=== PATIENT | female | born 1950 | race Caucasian/White ===

== ENCOUNTER 2020-04-05 07:53 | Outpatient (CLI) | payer MEDICARE, SELFPAY ==
--- NOTE | ~2020-04-05 | US_ITS ---
EXAMINATION: US right upper quadrant DATE: 04/05/2020 08:40 INDICATION: Abnormal liver function tests. TECHNIQUE: Multiple grayscale and Doppler ultrasound images of the abdomen were obtained. COMPARISON: None FINDINGS: The visualized portions of the head, body, and tail of the pancreas are normal. The liver i s normal without focal lesion. No liver surface nodularity. There is normal flow in main portal vein. The gallbladder is normal in size and contains gallstones. No gallbladder wall thickening or sonogra phic Melara sign. The common duct is normal and measures 5 mm. IMPRESSION: 1. Cholelithiasis. No evidence of acute cholecystitis. Reviewed, dictated and finalized at location A. [employer]ING [employer]IC
== END 2020-04-05 07:54 | disposition home or self-care (01) ==
LOC: CHSIMG 07:55
PROVIDERS: PCP Internal Medicine; Visit Provider Internal Medicine
DX: R94.5 Abnormal results of liver function studies (principal)
CPT/HCPCS: 76705

== ENCOUNTER 2020-05-21 15:25 | Outpatient (CLI) | payer MEDICARE, SELFPAY ==
--- NOTE | ~2020-05-21 | CT_ITS ---
EXAMINATION: CT abdomen pelvis w con EXAM DATE: 05/21/2020 16:38 INDICATION: Abdominal pain periumbilical pain, nausea, diarrhea, bloating since Sunday. Diarrhea. TECHNIQUE: Spiral CT of the abdomen and pelvis was performed following intravenous injection of 100 m L Omnipaque 350. Axial, coronal and sagittal images were reviewed. The dose-length product (DLP) fo r this examination was 1017.96 mGy-cm. The exposure was tailored according to patient size (auto mA exposure control), and iterative reconstruction (ASIR) was used as additional dose reduction techniqu e. There is no prior study for comparison. FINDINGS: There are surgical changes of gastric bypass. The stomach is moderately distended and duode num more severely distended to the 3rd portion, where there may be some amount of obstruction. Suspec t that this is more likely low-grade partial obstruction rather than completely obstructed. Fluid in the stomach and duodenum likely bile. Gastric bypass anastomosis is intact and small bowel otherwise unremarkable. The liver, spleen, adrenal glands and pancreas are unremarkable. Gallbladder is unremarkable. No bi liary obstruction. Portal and splenic veins are patent. Kidneys enhance symmetrically. There is no hydronephrosis. The uterus is unremarkable. The bladder is unremarkable. There is no retroperit herring or pelvic lymphadenopathy. There is moderate scattered arteriosclerotic disease. Small umbili randy fat-containing hernia. The appendix is not positively visualized. There is no pericecal inflammatory change to suggest appe ndicitis. There is mild scattered colonic diverticulosis. There is no adjacent inflammatory change t o suggest diverticulitis. There is expected amount of colonic stool. No free intraperitoneal gas. The heart is normal in size. There are no pericardial or pleural effusions. The lung bases are unr emarkable. There are no osteoblastic or osteolytic lesions identified. Mild to moderate lumbar levo scoliosis. IMPRESSION: 1. Gastric bypass with findings suspicious for duodenal outlet partial obstruction, distended duoden um and stomach, likely with bile. 2. Mild colonic diverticulosis. Reviewed, dictated and finalized at location A. IMPRESSION: 1. Gastric bypass with findings suspicious for duodenal outlet partial obstruc tion, distended duodenum and stomach, likely with bile. 2. Mild colonic diverticulosis.
[2020-05-21 15:40] LABS: Basophils Absolute Auto 0.04 K/mm3 (0.00-0.10); Basophils Percent Auto 0.4 % (0.0-1.0); Eosinophils Absolute Auto 0.17 K/mm3 (0.02-0.50); Eosinophils Percent Auto 1.7 % (1.0-6.0); Hematocrit 36.4 % (35.0-42.0); Hemoglobin 11.4 g/dL (11.7-13.8); Immature Granulocyte Absolute 0.04 K/mm3 (0.00-0.00); Immature Granulocyte Percent A 0.4 % (0.0-0.0); Lymphocytes Percent Auto 20.3 % (18.0-42.0); Mean Corpuscular HGB Conc 31.3 g/dL (32.0-36.0); Mean Corpuscular Hemoglobin 26.8 pg (27.0-31.0); Mean Corpuscular Volume 85.6 fL (78.0-102.0); Mean Platelet Volume 9.5 fl (9.2-11.8); Monocytes Absolute Auto 0.68 K/mm3 (0.10-0.90); Monocytes Percent Auto 6.9 % (2.0-11.0); Neutrophils Absolute Auto 6.9 K/mm3 (1.7-7.2); Neutrophils Percent Auto 70.3 % (50.0-70.0); Platelet Count Result 315 K/mm3 (150-420); Red Blood Count 4.25 M/mm3 (4.20-5.40); Red Cell Distribution Width 12.7 % (11.6-14.4); White Blood Count 9.8 K/mm3 (4.8-10.8)
[2020-05-21 15:48] LABS: Add Urine Microscopic? YES; Appearance Urine Clear (Clear); Bilirubin Urine Negative (Negative); Blood Urine Negative (Negative); Color Urine Yellow (Yellow); Glucose Urine UA Negative (Negative); Ketones Urine Negative (Negative); Leukocyte Esterase Ur 1+ (Negative); Nitrate Urine Positive (Negative); Protein Urine Negative (Negative); Specific Grav Ur >= 1.030 (1.010-1.020); Urobilinogen Urine 0.2 mg/dL (0.2-1.0)
[2020-05-21 16:05] LABS: Alanine Aminotransferase 30 U/L (14-59); Albumin Level 3.2 g/dL (3.4-5.0); Alkaline Phosphatase 79 U/L (46-116); Amylase 42 U/L (25-115); Anion Gap 8 mmol/L (8-16); Aspartate Amino Transferase 32 U/L (15-37); Bilirubin,Total 0.4 mg/dL (0.00-1.00); Blood Urea Nitrogen 19 mg/dL (7-18); Calcium 8.8 mg/dL (8.5-10.1); Carbon Dioxide 24 mmol/L (21-32); Chloride 103 mmol/L (98-108); Estimated Glomerular Filt Rate 58; Glucose 117 mg/dL (70-99); Lipase 227 U/L (73-393); Osmolality Calculated 283 mOsm/kg (285-295); Potassium 3.9 mmol/L (3.5-5.1); Sodium 135 mmol/L (136-145); Total Protein 6.6 g/dL (6.4-8.2)
[2020-05-21 16:49] LABS: RBC Urine 0-2 /hpf (0-2); Squamous Epithelial Cell Urine Few /hpf (Few)
[2020-05-21 16:50] LABS: Bacteria Urine 2+ /hpf
== END 2020-05-21 15:26 | disposition home or self-care (01) ==
LOC: CHSLAB 15:27
PROVIDERS: PCP Internal Medicine; Visit Provider Internal Medicine
DX: R10.9 Unspecified abdominal pain (principal); R11.0 Nausea
CPT/HCPCS: 36415; 74177; 80053; 81001; 82150; 83690; 85025; 87077; 87086; 87088; 87186; Q9967

== ENCOUNTER 2020-05-24 08:38 | Outpatient (CLI) | payer MEDICARE, SELFPAY ==
--- NOTE | ~2020-05-24 | XR_ITS ---
EXAMINATION: XR abdomen obstructive series DATE: 05/24/2020 09:06 INDICATION: Mid abdominal pain TECHNIQUE: Upright and supine views of the abdomen were obtained. COMPARISON: CT, 05/21/2020 FINDINGS: Surgical changes in the left upper quadrant are consistent with patient's history of bariat roxane surgery. Although sensitivity of radiographs is low, the gastric remnant appears to be persistent ly fluid-filled and distended. No free intraperitoneal gas is identified. The visualized lung bases a re clear. There is moderate lumbar spondylosis. IMPRESSION: 1. Likely persistent distention of the fluid-filled gastric remnant. Reviewed, dictated and finalized at location B.
== END 2020-05-24 08:39 | disposition home or self-care (01) ==
LOC: CHSIMG 08:39
PROVIDERS: PCP Internal Medicine; Visit Provider Internal Medicine
DX: R10.9 Unspecified abdominal pain (principal); Z98.84 Bariatric surgery status
CPT/HCPCS: 74019

== ENCOUNTER 2020-06-20 10:11 | Inpatient (IN) | payer MEDICARE, SELFPAY ==
[2020-06-20] VITALS (8 sets, daily range): BP systolic 102–108; BP diastolic 69–86; PULSE 64–95; RESP 18–20; TEMP 36.3–36.9; O2SAT 97–100; BMI 26.7
--- NOTE | ~2020-06-20 | CT_ITS ---
EXAMINATION: CT abdomen pelvis wo con DATE: 06/20/2020 11:43 INDICATION: Known pancreatic cancer. TECHNIQUE: Computed tomography (CT) of the abdomen and pelvis was performed without intravenous contr ast. The dose-length product was 885.92 mGy-cm. Automated exposure control and iterative reconstructi on technique were employed. COMPARISON: CT dated 05/21/2020 FINDINGS: Lung bases are unremarkable. Heart size is normal. There is atherosclerosis. There is a gas tric tube. There are gallstones. There is a 2.5 cm hypodense pancreatic head mass. The liver, spleen, adrenal glands and right kidney are unremarkable. There are punctate nonobstructing left renal stone s. There are surgical changes suggesting previous partial small bowel resection. Colonic diverticulos is without diverticulitis. Moderate atherosclerosis without aneurysm. Moderate lumbar spondylosis wit h levoscoliosis of the lumbar spine. Mild osteoarthritis of the hips. IMPRESSION: 1. Hypodense pancreatic head mass measuring 2.5 cm, likely corresponding to patient's known pancreati c cancer. 2: Cholelithiasis. 3: Nonobstructing left nephrolithiasis. Reviewed, dictated and finalized at location A. IMPRESSION: 1. Hypodense pancreatic head mass measuring 2.5 cm, likely corresponding to pat ient's known pancreatic cancer. 2: Cholelithiasis. 3: Nonobstructing left nephrolithiasis.
--- NOTE | ~2020-06-20 | XR_ITS ---
EXAMINATION: XR chest 1V portable 06/20/2020 11:49 INDICATION: Epigastric pain PROCEDURE: AP portable chest COMPARISON: Comparison to multiple prior studies sequentially, with oldest reviewed study dated 12/13. FINDINGS: The lungs are clear. The cardiomediastinal silhouette is within normal limits. There are no pleural effusions. There is no pneumothorax suspected. IMPRESSION: 1: NO ACUTE CARDIOPULMONARY DISEASE. Reviewed, dictated and finalized at location A.
--- NOTE | ~2020-06-20 | CT_ITS ---
EXAMINATION: CT brain wo con DATE: 06/20/2020 13:01 INDICATION: Hyponatremia. Known pancreatic cancer. Dizziness and weakness. TECHNIQUE: Computed tomography (CT) of the head was performed without intravenous contrast. The dose- length product was 605.33 mGy-cm. Automated exposure control and iterative reconstruction technique w ere employed. COMPARISON: None FINDINGS: Brain parenchymal volume is normal for age. No acute intracranial hemorrhage, infarction, m ass or mass effect. No ventriculomegaly or midline shift. There is hyperostosis frontalis interna. Th ere is a small right frontal bone osteoma. Paranasal sinuses and mastoids are pneumatized. No depress ed skull fractures. IMPRESSION: 1. No acute intracranial abnormality. Reviewed, dictated and finalized at location A.
--- NOTE | ~2020-06-20 | CT_ITS ---
EXAMINATION: CT diagnostic chest wo con DATE: 06/20/2020 13:02 INDICATION: Weakness. Epigastric pain. Known pancreatic malignancy. TECHNIQUE: Computed tomography (CT) of the chest was performed without intravenous contrast. The dose -length product was 468.97 mGy-cm. Automated exposure control and iterative reconstruction technique were employed. COMPARISON: Chest x-ray dated 06/20/2020 FINDINGS: No significant pleural or pericardial effusion. Heart size is normal. There are changes of gastric bypass surgery. No thoracic lymphadenopathy. No focal airspace consolidation. No endobronchia l lesions. No suspicious pulmonary nodules or masses. No pneumothorax. Mild-moderate thoracic spondyl osis. No lytic or blastic lesions. IMPRESSION: 1. No acute cardiopulmonary disease. Reviewed, dictated and finalized at location A.
[2020-06-20 10:45] LABS: Basophils Absolute Auto 0.02 K/mm3 (0.00-0.10); Basophils Percent Auto 0.1 % (0.0-1.0); Eosinophils Absolute Auto 0.14 K/mm3 (0.02-0.50); Eosinophils Percent Auto 0.8 % (1.0-6.0); Hematocrit 41.1 % (35.0-42.0); Hemoglobin 13.8 g/dL (11.7-13.8); Immature Granulocyte Absolute 0.15 K/mm3 (0.00-0.00); Immature Granulocyte Percent A 0.9 % (0.0-0.0); Immature Platelet Fraction Pct 1.3 % (1.0-7.0); Lymphocytes Absolute Auto 2.03 K/mm3 (1.10-4.50); Lymphocytes Percent Auto 12.2 % (18.0-42.0); Mean Corpuscular HGB Conc 33.6 g/dL (32.0-36.0); Mean Corpuscular Hemoglobin 25.6 pg (27.0-31.0); Mean Corpuscular Volume 76.3 fL (78.0-102.0); Mean Platelet Volume 8.9 fl (9.2-11.8); Monocytes Absolute Auto 1.28 K/mm3 (0.10-0.90); Monocytes Percent Auto 7.7 % (2.0-11.0); Neutrophils Percent Auto 78.3 % (50.0-70.0); Platelet Count Result 574 K/mm3 (150-420); Red Blood Count 5.39 M/mm3 (4.20-5.40); Red Cell Distribution Width 13.1 % (11.6-14.4); White Blood Count 16.7 K/mm3 (4.8-10.8)
[2020-06-20 10:57] LABS: Alanine Aminotransferase 29 U/L (14-59); Albumin Level 3.1 g/dL (3.4-5.0); Alkaline Phosphatase 90 U/L (46-116); Amylase 83 U/L (25-115); Anion Gap 12 mmol/L (8-16); Aspartate Amino Transferase 16 U/L (15-37); Bilirubin,Total 0.8 mg/dL (0.00-1.00); Blood Urea Nitrogen 53 mg/dL (7-18); Calcium 9.3 mg/dL (8.5-10.1); Carbon Dioxide 24 mmol/L (21-32); Chloride 85 mmol/L (98-108); Estimated Glomerular Filt Rate 31; Glucose 317 mg/dL (70-99); Lipase 605 U/L (73-393); Osmolality Calculated 278 mOsm/kg (285-295); Sodium 121 mmol/L (136-145); Total Protein 7.3 g/dL (6.4-8.2)
[2020-06-20] MEDS: ONDANSETRON INJ 4 MG/2 ML VIAL IV PUSH (11:00)
[2020-06-20] MEDS: SODIUM CHLORIDE 0.9% IV 1,000 ML 500 ML IV CONT (11:00)
--- NOTE | 2020-06-20 11:31 | ED.WEAKNESS ---
HPI - Weakness General Source: patient and family Mode of arrival: wheelchair Limitations: no limitations History of Present Illness HPI Narrative: Shivani has a recent diagnosis, about 3 weeks ago, of pancreatic cancer. She has had a gastric bypass. She had a G tube placed to drain gastric fluid that was associated with gastric distention from the bypassed segment, about 3 weeks ago. She now comes in with a complaint of weakness. She has not really been able to eat or drink well for some time, due to her illness and nausea. This am she ate a little chicken soup. She has had moderately severe weakness for the past week, but this has been more severe over the last two days. It has been ongoing. Nothing at home has improved this. MD Complaint: generalized weakness Onset (ago): day(s) Duration: progressively worsening Location: generalized Severity: severe Relieving factors: none Exacerbating factors: exertion Context: other (recent pancreatic cancer diagnosis. ) Associated symptoms: loss of appetite and nausea/vomiting Related Data Home Medications Medication Instructions Recorded Confirmed aspirin [Adult Low Dose Aspirin] 81 mg PO DAILY 12/26/18 06/20/20 cholecalciferol (vitamin D3) 800 unit PO DAILY 12/26/18 06/20/20 clobetasol 1 applic TOPICAL DAILY 12/26/18 06/20/20 multivitamin 1 tablet PO DAILY 12/26/18 06/20/20 vitamin B complex [B 1 tablet PO DAILY 12/26/18 06/20/20 Complex-Vitamin B12] apixaban 5 mg tablet 5 mg PO BID 02/24/19 06/20/20 insulin lispro 100 unit/mL 5 unit SUBCUT .QAC PRN ml 02/24/19 06/20/20 subcutaneous pen calcium carbonate 500 mg calcium 500 mg PO BID tablet 08/28/19 06/20/20 (1,250 mg) tablet cranberry 800 mg PO DAILY 06/20/20 06/20/20 cyclobenzaprine [Flexeril] 10 mg PO TID PRN 06/20/20 06/20/20 insulin glargine U-300 conc 3 unit SUB-Q QPM PRN 06/20/20 06/20/20 metoprolol tartrate 50 mg PO Q12H 06/20/20 06/20/20 ondansetron [Zofran ODT] 4 mg PO Q6H PRN 06/20/20 06/20/20 oxycodone 5 mg PO Q4H PRN 06/20/20 06/20/20 polyethylene glycol 3350 [Miralax] 17 g PO DAILY 06/20/20 06/20/20 rosuvastatin 20 mg PO DAILY 06/20/20 06/20/20 Allergies Allergy/AdvReac Type Severity Reaction Status Date / Time lisinopril Allergy Unknown Cough Verified 11/11/19 10:57 Review of Systems Constitutional: Constitutional: Reports no additional constitutional complaints Eyes: Eyes: Reports no additional eye complaints ENT: Reports system reviewed and no additional complaints, except as documented Cardiovascular: Cardiovascular: Reports no additional cardiovascular complaints Respiratory: Respiratory: Reports no additional respiratory complaints Gastrointestinal: Gastrointestinal: Reports abdominal pain, Reports nausea and Reports vomiting Genitourinary: Genitourinary: Reports no additional female genitourinary complaints Musculoskeletal: Musculoskeletal: Reports no additional musculoskeletal complaints Integumentary/Breasts: Skin/Breast: Reports system reviewed and no additional complaints, except as docu Neurologic: Reports system reviewed and no additional complaints, except as documented Psychiatric: Psychiatric: Reports no additional psychiatric complaints Endocrine: Endocrine: Reports no additional endocrine complaints Hematologic/Lymphatic: Hematologic/Lymphatic: Reports no additional hematologic/lymphatic complaints Allergic/Immunologic: Allergic/Immunologic: Reports no additional allergic/immunologic complaints [facility] Past Medical History Medical History Atrial fibrillation and flutter Gastrointestinal tube present Hyperlipidemia Pancreatic cancer Sciatica, right side Type 2 diabetes mellitus Surgical History Surgical History H/O gastric bypass H/O tubal ligation History of heart artery stent Family History Family History Mother
[2020-06-20 11:38] LABS: Magnesium 2.2 mg/dL (1.8-2.4)
--- NOTE | 2020-06-20 13:22 | PM.IMHP ---
H&P: HPI History of Present Illness Date/Time: 06/20/20 13:22 this is a 69-year-old female that presented to urgent care for nausea and generalized fatigue and weakness. Patient has a past medical history of A. fib and flutter, gastric tube present, hyperlipidemia, pancreatic cancer, type 2 diabetes, and sciatica right side. According to patient May 19 she was diagnosed with pancreatic cancer her oncologist is at [facility] she has not received any treatments as of yet they are currently producing a plan for her cancer treatment . patient notes that approximately 3 weeks ago she had a G-tube drain placed due to gastric accumulation. Patient drinks the tube twice a day with daily dressing changes. According to patient for the last couple of days she has been experiencing nausea she does deny any vomiting she also experienced some dizziness decreased appetite and generalized weakness and fatigue. Patient notes that she was able to hold down chicken noodle soup and notes that she has Zofran at home that was not relieved her nausea. Patient WBC 16.7, hemoglobin 13.8, hematocrit 41.1, platelets 574, sodium 121, potassium 4.0, BUN 53, creatinine 1.63, glucose 317, magnesium 2.2 liver enzymes within normal limit lipase [address] head CT within normal limits, abdominal CT indicates pancreatic mass. Patient be admitted for hypokalemia, dehydration, generalized weakness, acute kidney injury. The patient denies SOB, CP, palpitation, extremity numbness, lightheadedness, constipation, diarrhea, chills, or fever. Patient continues to experience dizziness, fatigue, decreased appetite and nausea. <DELL Flower - Last Filed: 06/20/20 14:40> Chief Complaint: Nausea with dizziness, fatigue, weakness, decreased appetite <DELL Flower - Last Filed: 06/20/20 14:40> Review of Systems Review of Systems: Narrative: A 14 organ system Review of Systems was performed and pertinent positives included in the HPI, otherwise remaining ROS is negative. <DELL Flower - Last Filed: 06/20/20 14:40> [facility] Past Medical History Medical History: Medical History Atrial fibrillation and flutter Gastrointestinal tube present Hyperlipidemia Pancreatic cancer Sciatica, right side Type 2 diabetes mellitus <DELL Flower - Last Filed: 06/20/20 14:40> Surgical History Surgical History: Surgical History H/O gastric bypass H/O tubal ligation History of heart artery stent <DELL Flower - Last Filed: 06/20/20 14:40> Family History Family History: Family History Mother Family history of elevated blood lipids Acute myocardial infarction Father Family history of cardiovascular disease Family history of emphysema Mother Family history of hypercholesterolemia Sibling Family history of hypercholesterolemia Family history of cardiovascular disease Acute myocardial infarction Family history of cardiac disorder Father Family history of cardiovascular disease Acute myocardial infarction Other Family history of malignant neoplasm Family history of malignant neoplasm of bone <DELL Flower - Last Filed: 06/20/20 14:40> Social History Social History: Social History Smoking status: Never smoker Second hand tobacco smoke exposure: Yes (Spouse smokes) Alcohol intake: never Substance use: never Substance use type: does not use Gender identity (if verbalized by the patient): Female Sexual Orientation (if Verbalized by the Patient): Straight or Heterosexual Spiritual care concerns: No <DELL Flower Last Filed: 06/20/20 14:40> Meds Home Medications and Allergies Home medications: Home Medications Medication Instruction
[2020-06-20] MEDS: SODIUM CHLORIDE 0.9% IV 1,000 ML 125 ML IV CONT (14:56)
--- NOTE | 2020-06-20 15:21 | ADMGEN ---
This patient, Shivani Carlin, was admitted to 2nd Floor Room 204-2. Patient/family oriented to hospital policies and general routines including ID bracelet, bed and alarms, visiting hours, pain management, procedures, bathroom and other care routines, personal items, smoking policy, room service/diet, and visiting hours. Information on how to activate the Rapid Response Team has been discussed. Patient/Family are encouraged to report perceived risks to care and to ask questions if they do not understand what they are told or what they should do. PT has a gastro drain in the Left abdomen , 34 FR. dressing change is daily.
[2020-06-20] MEDS: APIXABAN 2.5 MG TABLET 5 MG BY MOUTH (17:17)
[2020-06-20] MEDS: CALCIUM CARBONATE (OSCAL) 500 MG TABLET PO (17:17)
[2020-06-20 17:36] LABS: Glucose Point of Care 237 (65-105)
[2020-06-20 18:04] LABS: Add Urine Microscopic? YES; Appearance Urine Clear (Clear); Bilirubin Urine Negative (Negative); Blood Urine Negative (Negative); Color Urine Yellow (Yellow); Glucose Urine UA 1+ (Negative); Ketones Urine Negative (Negative); Leukocyte Esterase Ur Trace LEU/UL (Negative); Nitrate Urine Negative (Negative); Protein Urine Negative (Negative); Specific Grav Ur 1.025 (1.010-1.020); Urobilinogen Urine 0.2 mg/dL (0.2-1.0); pH Urine 5.5 (5.0-8.0)
[2020-06-20 18:07] LABS: Bacteria Urine 1+ /hpf; RBC Urine None seen /hpf (0-2); Squamous Epithelial Cell Urine Few /hpf (Few); WBC Urine 0-3 /hpf (0-3)
[2020-06-20] MEDS: METOPROLOL TARTRATE 25 MG TABLET 75 MG PO (20:41)
[2020-06-20 20:52] LABS: Glucose Point of Care 183 (65-105)
[2020-06-21] VITALS (8 sets, daily range): BP systolic 88–105; BP diastolic 52–80; PULSE 61–102; RESP 18–20; TEMP 36.2–36.6; O2SAT 95–100
[2020-06-21] MEDS: SODIUM CHLORIDE 0.9% IV 1,000 ML 125 ML IV CONT ×4 (01:14→20:15)
[2020-06-21 06:37] LABS: Hematocrit 33.7 % (35.0-42.0); Hemoglobin 11.2 g/dL (11.7-13.8); Mean Corpuscular HGB Conc 33.2 g/dL (32.0-36.0); Mean Corpuscular Volume 78.2 fL (78.0-102.0); Mean Platelet Volume 8.9 fl (9.2-11.8); Platelet Count Result 401 K/mm3 (150-420); Red Blood Count 4.31 M/mm3 (4.20-5.40); Red Cell Distribution Width 13.3 % (11.6-14.4); White Blood Count 11.9 K/mm3 (4.8-10.8)
[2020-06-21 06:52] LABS: Alanine Aminotransferase 16 U/L (14-59); Albumin Level 2.3 g/dL (3.4-5.0); Alkaline Phosphatase 65 U/L (46-116); Anion Gap 8 mmol/L (8-16); Aspartate Amino Transferase 21 U/L (15-37); Bilirubin,Total 0.4 mg/dL (0.00-1.00); Blood Urea Nitrogen 34 mg/dL (7-18); Carbon Dioxide 24 mmol/L (21-32); Chloride 95 mmol/L (98-108); Estimated CRCL calculation 51 ml/min; Estimated Glomerular Filt Rate > 60; Glucose 147 mg/dL (70-99); Magnesium 1.9 mg/dL (1.8-2.4); Osmolality Calculated 274 mOsm/kg (285-295); Potassium 3.9 mmol/L (3.5-5.1); Sodium 127 mmol/L (136-145); Total Protein 5.6 g/dL (6.4-8.2)
[2020-06-21 06:58] LABS: Lactic Acid Reflex 0.8 mmol/L (0.4-2.0)
--- NOTE | 2020-06-21 07:36 | P.PNIM_ITS ---
Progress Note: A&P Assessment and Plan (1) Dehydration: Code(s): E86.0 - Dehydration <Alvaro Tomas ACCOUNTANT CERTIFIED PUBLIC-C - Last Filed: 06/21/20 10:37> Status: Acute <BELINDA RutledgeN-C - Last Filed: 06/21/20 10:37> Assessment and Plan: * Secondary to nausea and vomiting versus infection * Sodium 121 * Patient bolused 500 in the ED continue normal saline at 125 an hour * UA pending 06/21/2020 Na 127 Cl 95, continue NS @ 125mL/h, Pt is drinking though not having appetite like normal <Alvaro Tomas ACCOUNTANT CERTIFIED PUBLIC-C - Last Filed: 06/21/20 10:37> (2) Weakness: Code(s): R53.1 - Weakness <Alvaro Tomas ACCOUNTANT CERTIFIED PUBLIC-C - Last Filed: 06/21/20 10:37> Status: Acute <Alvaro Tomas ACCOUNTANT CERTIFIED PUBLIC-C - Last Filed: 06/21/20 10:37> Assessment and Plan: * Possibly secondary to dehydration versus pancreatic cancer versus infection * WBCs elevated 16.7 * CT of the chest unremarkable * CT of the head no acute findings * Blood culture pending * PT OT consult 06/21/2020 WBC 11.9, continue to encourage good PO intake, working with PT/OT, per Pt appetite is a little improved since abdominal pain is gone <Alvaro Tomas ACCOUNTANT CERTIFIED PUBLIC-C - Last Filed: 06/21/20 10:37> (3) Pancreatic cancer: Code(s): C25.9 - Malignant neoplasm of pancreas, unspecified <Alvaro Tomas ACCOUNTANT CERTIFIED PUBLIC-C - Last Filed: 06/21/20 10:37> Status: Inactive <Alvaro Tomas ACCOUNTANT CERTIFIED PUBLIC-C - Last Filed: 06/21/20 10:37> Assessment and Plan: * Follow-up with oncologist * Imaging indicates hypodense pancreatic head mass measuring 2.5 cm, likely corresponding to patient's known pancreatic cancer. * Diagnosed a couple weeks ago * Oncologist is at [facility] * Patient has not started treatment yet currently working on treatment plan 06/21/2020 No abdominal pain today <Alvaro Tomas ACCOUNTANT CERTIFIED PUBLIC-C - Last Filed: 06/21/20 10:37> (4) Anxiety and depression: Code(s): F41.9 - Anxiety disorder, unspecified; F32.9 - Major depressive disorder, single episode, unspecified <Alvaro VillanuevaDAVID rudd - Last Filed: 06/21/20 10:37> Status: Acute <Alvaro VillanuevaJUDIE ruddC - Last Filed: 06/21/20 10:37> Assessment and Plan: * Continue Celexa indicated and Ativan <Alvaro Messer DAVID Tomas - Last Filed: 06/21/20 10:37> (5) History of bariatric surgery: Code(s): Z98.84 - Bariatric surgery status <Alvaro VillanuevaDAVID rudd - Last Filed: 06/21/20 10:37> Status: Acute <Alvaro VillanuevaDAVID rudd - Last Filed: 06/21/20 10:37> Assessment and Plan: * 2 years ago gastric bypass <Alvaro ZimmermanDAVID Urias - Last Filed: 06/21/20 10:37> (6) History of heart artery stent: Code(s): Z95.5 - Presence of coronary angioplasty implant and graft <Alvaro ZimmermanDAVID Urias - Last Filed: 06/21/20 10:37> Status: Acute <Alvaro VillanuevaDAVID rudd - Last Filed: 06/21/20 10:37> Assessment and Plan: 06/21/2020 Pt to f/u with technology internship per providers schedule <Alvaro ZimmermanDAVID Urias - Last Filed: 06/21/20 10:37> (7) Paroxysmal atrial fibrillation: Code(s): I48.0 - Paroxysmal atrial fibrillation <Alvaro ZimmermanDAVID Urias - Last Filed: 06/21/20 10:37> Status: Acute <Alvaro ZimmermanDAVID Urias - Last Filed: 06/21/20 10:37> Assessment and Plan: * Continue Eliquis and metoprolol * EKG in a.m. 06/21/2020 continue current medications <Alvaro ZimmermanDAVID Urias - Last Filed: 06/21/20 10:37> (8) Type 2 diabetes mellitus: Qualifiers: Diabetes mellitus complication detail: with unspecified neuropathy Diabetes
--- NOTE | 2020-06-21 07:36 | PM.IMPN ---
Progress Note: A&P Assessment and Plan (1) Dehydration: Code(s): E86.0 - Dehydration <Alvaro TomasRICKI-C - Last Filed: 06/21/20 10:37> Status: Acute <Alvaro TomasRICKI-C - Last Filed: 06/21/20 10:37> Assessment and Plan: Secondary to nausea and vomiting versus infection Sodium 121 Patient bolused 500 in the ED continue normal saline at 125 an hour UA pending 06/21/2020 Na 127 Cl 95, continue NS @ 125mL/h, Pt is drinking though not having appetite like normal <Alvaro TomasBELINDAN-C - Last Filed: 06/21/20 10:37> (2) Weakness: Code(s): R53.1 - Weakness <Alvaro TomasRICKI-C - Last Filed: 06/21/20 10:37> Status: Acute <Alvaro TomasRICKI-C - Last Filed: 06/21/20 10:37> Assessment and Plan: Possibly secondary to dehydration versus pancreatic cancer versus infection WBCs elevated 16.7 CT of the chest unremarkable CT of the head no acute findings Blood culture pending PT OT consult 06/21/2020 WBC 11.9, continue to encourage good PO intake, working with PT/OT, per Pt appetite is a little improved since abdominal pain is gone <Alvaro TomasRICKI-C - Last Filed: 06/21/20 10:37> (3) Pancreatic cancer: Code(s): C25.9 - Malignant neoplasm of pancreas, unspecified <Alvaro TomasRICKI-C - Last Filed: 06/21/20 10:37> Status: Inactive <Alvaro TomasRICKI-C - Last Filed: 06/21/20 10:37> Assessment and Plan: Follow-up with oncologist Imaging indicates hypodense pancreatic head mass measuring 2.5 cm, likely corresponding to patient's known pancreatic cancer. Diagnosed a couple weeks ago Oncologist is at [facility] Patient has not started treatment yet currently working on treatment plan 06/21/2020 No abdominal pain today <Alvaro ZimmermanDavid RichRICKI rudd-C - Last Filed: 06/21/20 10:37> (4) Anxiety and depression: Code(s): F41.9 - Anxiety disorder, unspecified; F32.9 - Major depressive disorder, single episode, unspecified <Alvaro TomasJUDIEC - Last Filed: 06/21/20 10:37> Status: Acute <Alvaro TomasJUDIEC - Last Filed: 06/21/20 10:37> Assessment and Plan: Continue Celexa indicated and Ativan <Alvaro VillanuevaJUDIE ruddC - Last Filed: 06/21/20 10:37> (5) History of bariatric surgery: Code(s): Z98.84 - Bariatric surgery status <Alvaro TomasJUDIEC - Last Filed: 06/21/20 10:37> Status: Acute <Alvaro TomasJUDIEC - Last Filed: 06/21/20 10:37> Assessment and Plan: 2 years ago gastric bypass <Alvaro VillanuevaJUDIE ruddC - Last Filed: 06/21/20 10:37> (6) History of heart artery stent: Code(s): Z95.5 - Presence of coronary angioplasty implant and graft <Alvaro VillanuevaJUDIE ruddC - Last Filed: 06/21/20 10:37> Status: Acute <Alvaro TomasJUDIEC - Last Filed: 06/21/20 10:37> Assessment and Plan: 06/21/2020 Pt to f/u with diploma dental assistant per providers schedule <Alvaro ZimmermanDavid RichDAVID rudd - Last Filed: 06/21/20 10:37> (7) Paroxysmal atrial fibrillation: Code(s): I48.0 - Paroxysmal atrial fibrillation <Alvaro VillanuevaJUDIE ruddC - Last Filed: 06/21/20 10:37> Status: Acute <Alvaro VillanuevaDAVID rudd - Last Filed: 06/21/20 10:37> Assessment and Plan: Continue Eliquis and metoprolol EKG in a.m. 06/21/2020 continue current medications <Alvaro ZimmermanDavid RichJUDIE ruddC - Last Filed: 06/21/20 10:37> (8) Type 2 diabetes mellitus: Qualifiers: Diabetes mellitus complication detail: with unspecified neuropathy Diabetes mellitus complication status: with neurologic complications Diabetes mellitus middle or intermediate school principal insulin use: with middle or intermediate school principal use Qualified Code(s): E11.40 - Type 2 diabetes mellitus with diabetic neuropathy, unspecified; Z79.4 - middle or intermediate school principal (current) use of insulin <DAVID Rutledge - Last Filed: 06/21/20 10:37> Code(s): E11.9 - Type 2 diabetes mellitus without compli
[2020-06-21 07:37] LABS: Glucose Point of Care 167 (65-105)
[2020-06-21] MEDS: CITALOPRAM HYDROBROMIDE 20 MG TABLET PO (08:30)
[2020-06-21] MEDS: ASPIRIN 81 MG ENTERIC TABLET PO (08:33)
[2020-06-21] MEDS: APIXABAN 2.5 MG TABLET 5 MG BY MOUTH ×2 (08:34→16:44)
[2020-06-21] MEDS: METOPROLOL TARTRATE 25 MG TABLET 75 MG PO ×2 (08:34→20:14)
[2020-06-21] MEDS: CHOLECALCIFEROL 400 UNITS TABLET (VIT D) 800 UNITS PO (08:35)
[2020-06-21] MEDS: CALCIUM CARBONATE (OSCAL) 500 MG TABLET PO ×2 (08:36→16:44)
[2020-06-21] MEDS: ROSUVASTATIN 10 MG TABLET PO (08:36)
[2020-06-21 11:25] LABS: Glucose Point of Care 166 (65-105)
[2020-06-21 16:57] LABS: Glucose Point of Care 146 (65-105)
[2020-06-21] MEDS: INSULIN GLARGINE (LANTUS) 1,000 UNITS/10 ML VIAL 3 UNITS SUB-Q (20:46)
[2020-06-21 20:54] LABS: Glucose Point of Care 174 (65-105)
[2020-06-22] MEDS: SODIUM CHLORIDE 0.9% IV 1,000 ML 125 ML IV CONT (04:44)
[2020-06-22 05:41] LABS: Hematocrit 29.8 % (35.0-42.0); Hemoglobin 9.4 g/dL (11.7-13.8); Mean Corpuscular HGB Conc 31.5 g/dL (32.0-36.0); Mean Corpuscular Hemoglobin 25.3 pg (27.0-31.0); Mean Corpuscular Volume 80.3 fL (78.0-102.0); Mean Platelet Volume 9.2 fl (9.2-11.8); Platelet Count Result 337 K/mm3 (150-420); Red Blood Count 3.71 M/mm3 (4.20-5.40); Red Cell Distribution Width 13.5 % (11.6-14.4); White Blood Count 9.9 K/mm3 (4.8-10.8)
[2020-06-22 05:48] LABS: Anion Gap 8 mmol/L (8-16); Blood Urea Nitrogen 22 mg/dL (7-18); Calcium 7.8 mg/dL (8.5-10.1); Carbon Dioxide 24 mmol/L (21-32); Chloride 99 mmol/L (98-108); Estimated CRCL calculation 58 ml/min; Estimated Glomerular Filt Rate > 60; Glucose 107 mg/dL (70-99); Lipase 463 U/L (73-393); Osmolality Calculated 275 mOsm/kg (285-295); Potassium 3.2 mmol/L (3.5-5.1); Sodium 131 mmol/L (136-145)
[2020-06-22 08:00] VITALS: BP 100/65; PULSE 65; RESP 20; TEMP 36.7; O2SAT 100
[2020-06-22 08:20] LABS: Glucose Point of Care 129 (65-105)
[2020-06-22] MEDS: POTASSIUM CHLORIDE 20 MEQ TABLET 40 MEQ PO (08:41)
[2020-06-22 08:42] VITALS: PULSE 65
[2020-06-22] MEDS: CHOLECALCIFEROL 400 UNITS TABLET (VIT D) 800 UNITS PO (08:42)
[2020-06-22] MEDS: METOPROLOL TARTRATE 25 MG TABLET 75 MG PO (08:42)
[2020-06-22] MEDS: APIXABAN 2.5 MG TABLET 5 MG BY MOUTH (08:43)
[2020-06-22] MEDS: ROSUVASTATIN 10 MG TABLET PO (08:43)
[2020-06-22] MEDS: CALCIUM CARBONATE (OSCAL) 500 MG TABLET PO (08:43)
[2020-06-22] MEDS: CITALOPRAM HYDROBROMIDE 20 MG TABLET PO (08:43)
[2020-06-22] MEDS: ASPIRIN 81 MG ENTERIC TABLET PO (08:43)
[2020-06-22 11:37] LABS: Glucose Point of Care 169 (65-105)
--- NOTE | 2020-06-22 12:10 | P.DS_ITS ---
DS: Admitting Diagnosis Admitting Diagnosis Admitting Diagnosis: Hyponatremia, UTI DS: Discharge Diagnosis Discharge Diagnosis (1) Dehydration: Code(s): E86.0 - Dehydration Status: Acute Assessment and Plan: * Secondary to nausea and vomiting versus infection * Sodium 121 * Patient bolused 500 in the ED continue normal saline at 125 an hour * UA pending 06/21/2020 Na 127 Cl 95, continue NS @ 125mL/h, Pt is drinking though not having appetite like normal 06/22/2020 Na improved 131 and Cl 96, will send home with Sodium tabs 1 Gm BID (2) Weakness: Code(s): R53.1 - Weakness Status: Acute Assessment and Plan: * Possibly secondary to dehydration versus pancreatic cancer versus infection * WBCs elevated 16.7 * CT of the chest unremarkable * CT of the head no acute findings * Blood culture pending * PT OT consult 06/21/2020 WBC 11.9, continue to encourage good PO intake, working with PT/OT, per Pt appetite is a little improved since abdominal pain is gone 06/22/2020 Pt's appetite is improved, Pt to f/u with PCP and oncologist within a week. (3) Pancreatic cancer: Code(s): C25.9 - Malignant neoplasm of pancreas, unspecified Status: Inactive Assessment and Plan: * Follow-up with oncologist * Imaging indicates hypodense pancreatic head mass measuring 2.5 cm, likely corresponding to patient's known pancreatic cancer. * Diagnosed a couple weeks ago * Oncologist is at [facility] * Patient has not started treatment yet currently working on treatment plan 06/21/2020 No abdominal pain today (4) Anxiety and depression: Code(s): F41.9 - Anxiety disorder, unspecified; F32.9 - Major depressive disorder, single episode, unspecified Status: Acute Assessment and Plan: * Continue Celexa indicated and Ativan (5) History of bariatric surgery: Code(s): Z98.84 - Bariatric surgery status Status: Acute Assessment and Plan: * 2 years ago gastric bypass (6) History of heart artery stent: Code(s): Z95.5 - Presence of coronary angioplasty implant and graft Status: Acute Assessment and Plan: 06/21/2020 Pt to f/u with breakdown person per providers schedule (7) Paroxysmal atrial fibrillation: Code(s): I48.0 - Paroxysmal atrial fibrillation Status: Acute Assessment and Plan: * Continue Eliquis and metoprolol * EKG in a.m. 06/21/2020 continue current medications 06/22/2020 Pt has not had any issues during her hospitalization (8) Type 2 diabetes mellitus: Qualifiers: Diabetes mellitus complication detail: with unspecified neuropathy Diabetes mellitus complication status: with neurologic complications Diabetes mellitus chcf insulin use: with chcf use Qualified Code(s): E11.40 - Type 2 diabetes mellitus with diabetic neuropathy, unspecified; Z79.4 - termite control servicer (current) use of insulin Code(s): E11.9 - Type 2 diabetes mellitus without complications Status: Acute Assessment and Plan: * Continue Accu-Chek with sliding scale hypoglycemic protocol * Patient insulin pen discontinued can resume once she is discharged 06/21/2020 no changes at this time, glucose appears controlled at this time 06/22/2020 cotninue current regimen on DC home (9) Hyperlipidemia: Qualifiers: Hyperlipidemia type: mixed hyperlipidemia Qualified Code(s): E78.2 - Mixed hyperlipidemia Code(s): E78.5 - Hyperlipidemia, unspecified Status: Acute Assessment and Plan: * Continue statins (10) Sciatica, right side:
--- NOTE | 2020-06-22 12:10 | PM.DS ---
DS: Admitting Diagnosis Admitting Diagnosis Admitting Diagnosis: Hyponatremia, UTI DS: Discharge Diagnosis Discharge Diagnosis (1) Dehydration: Code(s): E86.0 - Dehydration Status: Acute Assessment and Plan: Secondary to nausea and vomiting versus infection Sodium 121 Patient bolused 500 in the ED continue normal saline at 125 an hour UA pending 06/21/2020 Na 127 Cl 95, continue NS @ 125mL/h, Pt is drinking though not having appetite like normal 06/22/2020 Na improved 131 and Cl 96, will send home with Sodium tabs 1 Gm BID (2) Weakness: Code(s): R53.1 - Weakness Status: Acute Assessment and Plan: Possibly secondary to dehydration versus pancreatic cancer versus infection WBCs elevated 16.7 CT of the chest unremarkable CT of the head no acute findings Blood culture pending PT OT consult 06/21/2020 WBC 11.9, continue to encourage good PO intake, working with PT/OT, per Pt appetite is a little improved since abdominal pain is gone 06/22/2020 Pt's appetite is improved, Pt to f/u with PCP and oncologist within a week. (3) Pancreatic cancer: Code(s): C25.9 - Malignant neoplasm of pancreas, unspecified Status: Inactive Assessment and Plan: Follow-up with oncologist Imaging indicates hypodense pancreatic head mass measuring 2.5 cm, likely corresponding to patient's known pancreatic cancer. Diagnosed a couple weeks ago Oncologist is at [facility] Patient has not started treatment yet currently working on treatment plan 06/21/2020 No abdominal pain today (4) Anxiety and depression: Code(s): F41.9 - Anxiety disorder, unspecified; F32.9 - Major depressive disorder, single episode, unspecified Status: Acute Assessment and Plan: Continue Celexa indicated and Ativan (5) History of bariatric surgery: Code(s): Z98.84 - Bariatric surgery status Status: Acute Assessment and Plan: 2 years ago gastric bypass (6) History of heart artery stent: Code(s): Z95.5 - Presence of coronary angioplasty implant and graft Status: Acute Assessment and Plan: 06/21/2020 Pt to f/u with stockroom supervisor per providers schedule (7) Paroxysmal atrial fibrillation: Code(s): I48.0 - Paroxysmal atrial fibrillation Status: Acute Assessment and Plan: Continue Eliquis and metoprolol EKG in a.m. 06/21/2020 continue current medications 06/22/2020 Pt has not had any issues during her hospitalization (8) Type 2 diabetes mellitus: Qualifiers: Diabetes mellitus complication detail: with unspecified neuropathy Diabetes mellitus complication status: with neurologic complications Diabetes mellitus usp insulin use: with usp use Qualified Code(s): E11.40 - Type 2 diabetes mellitus with diabetic neuropathy, unspecified; Z79.4 - manager terminal (current) use of insulin Code(s): E11.9 - Type 2 diabetes mellitus without complications Status: Acute Assessment and Plan: Continue Accu-Chek with sliding scale hypoglycemic protocol Patient insulin pen discontinued can resume once she is discharged 06/21/2020 no changes at this time, glucose appears controlled at this time 06/22/2020 cotninue current regimen on DC home (9) Hyperlipidemia: Qualifiers: Hyperlipidemia type: mixed hyperlipidemia Qualified Code(s): E78.2 - Mixed hyperlipidemia Code(s): E78.5 - Hyperlipidemia, unspecified Status: Acute Assessment and Plan: Continue statins (10) Sciatica, right side: Code(s): M54.31 - Sciatica, right side Status: Acute Assessment and Plan: Continue pain medication and Flexeril (11) Gastrointestinal tube present: Code(s): Z93.1 - Gastrostomy status Status: Inactive Assessment and Plan: Drain gastric contents twice daily with dressing change daily or PRN if vomiting occurs (12) Acute kidney failure: Code(s): N17.9 - Acute kidney lou
--- NOTE | 2020-06-22 14:20 | PC.NURSE ---
Patient discharged home accompanied by via personal vehicle. All personal items have been collected and sent with spouse. IV to RT AC and Lf AC removed and tolerated well. Staff escorted to main entrance via WC and helped into personal vehicle.
--- NOTE | 2020-06-24 15:18 | PC.NURSE ---
Pt states she received and understood her discharge instructions. She also states I was treated very well .
== END 2020-06-22 14:05 | disposition home or self-care (01) | DRG 641 ==
LOC: CHSED 11:45 → CHS2ND 13:09
PROVIDERS: Nurse Practitioner; Nurse Practitioner Family; Admitting Provider Emergency Medicine; Emergency Provider Emergency Medicine; PCP Internal Medicine; Visit Provider Emergency Medicine
DX: E87.1 Hypo-osmolality and hyponatremia (principal); N39.0 Urinary tract infection, site not specified; C25.9 Malignant neoplasm of pancreas, unspecified; I48.20 Chronic atrial fibrillation, unspecified; N17.9 Acute kidney failure, unspecified; K80.20 Calculus of gallbladder without cholecystitis without obstruction; N20.0 Calculus of kidney; E11.9 Type 2 diabetes mellitus without complications; Z95.5 Presence of coronary angioplasty implant and graft; Z98.84 Bariatric surgery status; M54.30 Sciatica, unspecified side; Z93.1 Gastrostomy status; E86.0 Dehydration; E78.5 Hyperlipidemia, unspecified; F41.9 Anxiety disorder, unspecified; F32.9 Major depressive disorder, single episode, unspecified
CPT/HCPCS: 36415; 70450; 71045; 71250; 74176; 80048; 80053; 81001; 82150; 82948; 83605; 83690; 83735; 85025; 85027; 85055; 87040; 87086; 87088; 96361; 96374; 97161; 97165; 99285; A9270; J0696; J1815; J2405; J7030

== ENCOUNTER 2020-06-29 15:12 | Emergency (ER) | payer MEDICARE, SELFPAY ==
[2020-06-29 15:51] VITALS: BP 108/66; PULSE 64; RESP 20; TEMP 36.7; O2SAT 98
[2020-06-29 16:46] LABS: Add Urine Microscopic? YES; Appearance Urine Cloudy (Clear); Basophils Absolute Auto 0.04 K/mm3 (0.00-0.10); Basophils Percent Auto 0.3 % (0.0-1.0); Bilirubin Urine Negative (Negative); Blood Urine 3+ (Negative); Color Urine Yellow (Yellow); Eosinophils Absolute Auto 0.13 K/mm3 (0.02-0.50); Eosinophils Percent Auto 1.1 % (1.0-6.0); Glucose Urine UA Negative (Negative); Hematocrit 36.9 % (35.0-42.0); Immature Granulocyte Absolute 0.08 K/mm3 (0.00-0.00); Immature Granulocyte Percent A 0.7 % (0.0-0.0); Ketones Urine Negative (Negative); Leukocyte Esterase Ur 2+ LEU/UL (Negative); Lymphocytes Absolute Auto 1.78 K/mm3 (1.10-4.50); Mean Corpuscular HGB Conc 32.5 g/dL (32.0-36.0); Mean Platelet Volume 8.6 fl (9.2-11.8); Monocytes Absolute Auto 0.98 K/mm3 (0.10-0.90); Monocytes Percent Auto 8.3 % (2.0-11.0); Neutrophils Absolute Auto 8.9 K/mm3 (1.7-7.2); Neutrophils Percent Auto 74.6 % (50.0-70.0); Nitrate Urine Negative (Negative); Platelet Count Result 358 K/mm3 (150-420); Protein Urine Trace (Negative); Red Blood Count 4.61 M/mm3 (4.20-5.40); Red Cell Distribution Width 13.6 % (11.6-14.4); Specific Grav Ur >= 1.030 (1.010-1.020); Urobilinogen Urine 0.2 mg/dL (0.2-1.0); White Blood Count 11.9 K/mm3 (4.8-10.8); pH Urine 5.5 (5.0-8.0)
[2020-06-29 16:59] LABS: Squamous Epithelial Cell Urine Moderate /hpf (Few)
[2020-06-29 17:00] LABS: Alanine Aminotransferase 32 U/L (14-59); Albumin Level 2.9 g/dL (3.4-5.0); Alkaline Phosphatase 74 U/L (46-116); Anion Gap 9 mmol/L (8-16); Aspartate Amino Transferase 31 U/L (15-37); Bacteria Urine 1+ /hpf; Bilirubin,Total 0.3 mg/dL (0.00-1.00); Blood Urea Nitrogen 19 mg/dL (7-18); Budding Yeast Urine Present /hpf; Calcium Oxalate Crystals Urine Present /hpf; Carbon Dioxide 25 mmol/L (21-32); Chloride 100 mmol/L (98-108); Estimated Glomerular Filt Rate 58; Glucose 145 mg/dL (70-99); Osmolality Calculated 283 mOsm/kg (285-295); Potassium 3.7 mmol/L (3.5-5.1); Sodium 134 mmol/L (136-145); Total Protein 6.8 g/dL (6.4-8.2)
--- NOTE | 2020-06-29 17:10 | ED.ABDPAIN ---
HPI - Abdominal Pain General Chief Complaint: Abdominal Pain Stated Complaint: side pain, sent from [facility] Time Seen by Provider: 06/29/20 15:55 Source: patient and family Mode of arrival: ambulatory Limitations: no limitations History of Present Illness HPI narrative: Mrs Carlin is a nice woman with a recent diagnosis of pancreatic cancer who comes in with complaints of lower abdominal pain for the last two days. She has had no fever or chills. Abdominal pain has been mid to moderate in severity, ongoing, becoming constant for the last two days, and worse today. She has not eaten as much as she usually does, but has had no significant nausea. No vomiting. Nothing known has precipitated this. No modifying factors. MD elicited complaint: abdominal pain Pertinent past history: other (known pancreatic cancer) Onset (ago): day(s) Pain Consistency: constant Location: other (lower abdomen) Severity: moderate Quality: stabbing Radiation: none Relieving factors: nothing Associated symptoms: other (dysuria) Treatments prior to arrival: NSAIDs Related Data Home Medications Medication Instructions Recorded Confirmed aspirin [Adult Low Dose Aspirin] 81 mg PO DAILY 12/26/18 06/29/20 cholecalciferol (vitamin D3) 800 unit PO DAILY 12/26/18 06/29/20 clobetasol 1 applic TOPICAL DAILY 12/26/18 06/29/20 multivitamin 1 tablet PO DAILY 12/26/18 06/29/20 vitamin B complex [B 1 tablet PO DAILY 12/26/18 06/29/20 Complex-Vitamin B12] apixaban 5 mg tablet 5 mg PO BID 02/24/19 06/29/20 insulin lispro 100 unit/mL 5 unit SUBCUT .QAC PRN ml 02/24/19 06/29/20 subcutaneous pen calcium carbonate 500 mg calcium 500 mg PO BID tablet 08/28/19 06/29/20 (1,250 mg) tablet cranberry 800 mg PO DAILY 06/20/20 06/29/20 cyclobenzaprine 10 mg PO TID PRN 06/20/20 06/29/20 insulin glargine U-300 conc 3 unit SUB-Q QPM PRN 06/20/20 06/29/20 ondansetron 4 mg PO Q6H PRN 06/20/20 06/29/20 oxycodone 5 mg PO Q4H PRN 06/20/20 06/29/20 polyethylene glycol 3350 [Miralax] 17 g PO DAILY 06/20/20 06/29/20 rosuvastatin 20 mg PO DAILY 06/20/20 06/29/20 Allergies Allergy/AdvReac Type Severity Reaction Status Date / Time lisinopril Allergy Unknown Cough Verified 06/29/20 16:39 Review of Systems Constitutional: Constitutional: Reports fatigue Eyes: Eyes: Reports no additional eye complaints ENT: Reports system reviewed and no additional complaints, except as documented Cardiovascular: Cardiovascular: Reports no additional cardiovascular complaints Respiratory: Respiratory: Reports no additional respiratory complaints Gastrointestinal: Gastrointestinal: Reports no additional gastrointestinal complaints Genitourinary: Genitourinary: Reports no additional female genitourinary complaints Musculoskeletal: Musculoskeletal: Reports no additional musculoskeletal complaints Integumentary/Breasts: Skin/Breast: Reports system reviewed and no additional complaints, except as docu Neurologic: Reports system reviewed and no additional complaints, except as documented Psychiatric: Psychiatric: Reports no additional psychiatric complaints Endocrine: Endocrine: Reports no additional endocrine complaints Hematologic/Lymphatic: Hematologic/Lymphatic: Reports no additional hematologic/lymphatic complaints Allergic/Immunologic: Allergic/Immunologic: Reports no additional allergic/immunologic complaints [facility] Past Medical History Medical History Atrial fibrillation and flutter Gastrointestinal tube present Hyperlipidemia Pancreatic cancer Sciatica, right side Type 2 diabetes mellitus Surgical History Surgical History H/O gastric bypass H/O tubal ligation History of heart artery stent Family History Family History Mother Family history of elevated blood lipids Acute myocardial infarction Father Family history of ca
[2020-06-29] MEDS: cefTRIAXone 1 GM VIAL IM (17:34)
--- NOTE | 2020-06-29 18:03 | PC.NURSE ---
1600 PT UNABLE TO GIVE M0RE URINE STATES SHE JUST WANTS TO GO HOME AND REST SO UNABLE TO GET CULTURE
[2020-06-29 18:04] VITALS: BP 177/56; PULSE 72; RESP 20; TEMP 36.7; O2SAT 100
== END 2020-06-29 18:06 | disposition home or self-care (01) ==
PROVIDERS: Emergency Provider Emergency Medicine; PCP Internal Medicine
DX: N10 Acute pyelonephritis (principal); N39.0 Urinary tract infection, site not specified; C25.9 Malignant neoplasm of pancreas, unspecified; E11.9 Type 2 diabetes mellitus without complications
CPT/HCPCS: 36415; 80053; 81001; 85025; 87086; 87088; 96372; 99283; J0696

== ENCOUNTER 2020-06-30 13:34 | Outpatient (CLI) | payer MEDICARE, SELFPAY ==
--- NOTE | ~2020-06-30 | CT_ITS ---
EXAMINATION: CT abdomen pelvis w con INDICATION: Abdominal pain, pancreatic cancer TECHNIQUE: Computed tomographic images of the abdomen and pelvis were obtained after the administrati on of 100 cc of Omnipaque 350 intravenous contrast. The dose-length product (DLP) was 468.57 mGy-cm. Automated exposure control and iterative reconstruction technique were employed. COMPARISON: 06/20/2020 FINDINGS: The lung bases are clear. The heart size is normal. A percutaneous gastrostomy ends in the stomach. There appear be changes of prior gastric bypass surgery. There is focal fatty infiltration o f the liver near the ligamentum teres. The spleen and adrenal glands are normal. There is a 2.8 cm ma ss in the head of the pancreas. The gallbladder is decompressed and contains stones. The kidneys are unremarkable. There is calcified atherosclerosis of the aorta and many of the other arteries. No path ologically enlarged abdominal or pelvic lymph nodes are identified. There is no free intraperitoneal gas or evidence of bowel obstruction. There is mild thickening of the bladder wall. There is severe l umbar spondylosis at L3-4 and L4-5. IMPRESSION: 1. No CT correlate for abdominal pain. 2. Mass in the head of the pancreas, consistent with known malignancy. 3. Cholelithiasis without evidence of cholecystitis. 4. Mild thickening of the bladder wall which could reflect urinary tract infection. Reviewed, dictated and finalized at location A. IMPRESSION: 1. No CT correlate for abdominal pain. 2. Mass in the head of the pancreas, consistent with known malignancy. 3. Cholelithiasis without evidence of cholecystitis. 4. Mild thickening of the bladder wall which could reflect urinary tract infect ion.
== END 2020-06-30 13:35 | disposition home or self-care (01) ==
LOC: CHSIMG 13:35
PROVIDERS: PCP Internal Medicine; Visit Provider Internal Medicine
DX: R10.9 Unspecified abdominal pain (principal); C25.9 Malignant neoplasm of pancreas, unspecified; N39.0 Urinary tract infection, site not specified
CPT/HCPCS: 74177; Q9967

== ENCOUNTER 2020-07-11 15:45 | Emergency (ER) | payer MEDICARE, SELFPAY ==
--- NOTE | ~2020-07-11 | CT_ITS ---
EXAMINATION: CT abdomen pelvis wo con DATE: 07/11/2020 16:52 INDICATION: Lower abdominal pain. Pancreatic adenocarcinoma. TECHNIQUE: Computed tomography (CT) of the abdomen and pelvis was performed without intravenous contr ast. The dose-length product was 400.65 mGy-cm. Automated exposure control and iterative reconstructi on technique were employed. COMPARISON: CT dated 06/30/2020. FINDINGS: Lung bases unremarkable. Heart size normal. There are gastric bypass changes. There is a ga strostomy tube. The stomach and proximal duodenum is distended. There is an ill-defined pancreatic he ad mass, consistent with known malignancy. Pancreatic head mass may be causing obstruction of the duo denum. The liver, spleen, adrenal glands and right kidney are unremarkable. There are nonobstructing left renal stones. There is a surgical anastomosis in the right mid abdomen. There is moderate diffus e atherosclerosis without aneurysm. No significant lymphadenopathy identified. Small fat-containing u mbilical hernia. No abnormal pelvic masses or fluid collections. No focal lytic or blastic lesions. M oderate lumbar spondylosis. Grade 1 degenerative spondylolisthesis at L3-4. IMPRESSION: 1. Ill-defined pancreatic head mass, consistent with known malignancy. There is bowel diameter transi tion of the duodenum at the level of the mass, suspicious for obstruction. 2: Nonobstructing left nephrolithiasis. Reviewed, dictated and finalized at location A. IMPRESSION: 1. Ill-defined pancreatic head mass, consistent with known malignancy. There is bowel diameter transition of the duodenum at the level of the mass, suspicious for obstruction. 2: Nonobstructing left nephrolithiasis.
[2020-07-11 16:05] VITALS: BP 133/81; PULSE 75; RESP 18; TEMP 37.4; O2SAT 97
[2020-07-11 16:24] LABS: Basophils Absolute Auto 0.04 K/mm3 (0.00-0.10); Basophils Percent Auto 0.3 % (0.0-1.0); Eosinophils Percent Auto 0.7 % (1.0-6.0); Hematocrit 39.2 % (35.0-42.0); Immature Granulocyte Absolute 0.06 K/mm3 (0.00-0.00); Immature Granulocyte Percent A 0.4 % (0.0-0.0); Lymphocytes Absolute Auto 1.44 K/mm3 (1.10-4.50); Lymphocytes Percent Auto 10.7 % (18.0-42.0); Mean Corpuscular HGB Conc 30.6 g/dL (32.0-36.0); Mean Corpuscular Hemoglobin 24.2 pg (27.0-31.0); Mean Corpuscular Volume 79.2 fL (78.0-102.0); Mean Platelet Volume 8.9 fl (9.2-11.8); Monocytes Absolute Auto 1.04 K/mm3 (0.10-0.90); Monocytes Percent Auto 7.7 % (2.0-11.0); Neutrophils Absolute Auto 10.8 K/mm3 (1.7-7.2); Neutrophils Percent Auto 80.2 % (50.0-70.0); Platelet Count Result 440 K/mm3 (150-420); Red Blood Count 4.95 M/mm3 (4.20-5.40); Red Cell Distribution Width 13.9 % (11.6-14.4); White Blood Count 13.5 K/mm3 (4.8-10.8)
[2020-07-11 16:39] LABS: Alanine Aminotransferase 39 U/L (14-59); Albumin Level 3.2 g/dL (3.4-5.0); Alkaline Phosphatase 86 U/L (46-116); Anion Gap 13 mmol/L (8-16); Aspartate Amino Transferase 25 U/L (15-37); Bilirubin,Total 0.5 mg/dL (0.00-1.00); Blood Urea Nitrogen 19 mg/dL (7-18); Calcium 9.5 mg/dL (8.5-10.1); Carbon Dioxide 23 mmol/L (21-32); Chloride 94 mmol/L (98-108); Estimated Glomerular Filt Rate 56; Glucose 212 mg/dL (70-99); Osmolality Calculated 278 mOsm/kg (285-295); Potassium 4.3 mmol/L (3.5-5.1); Sodium 130 mmol/L (136-145); Total Protein 7.4 g/dL (6.4-8.2)
[2020-07-11] MEDS: SODIUM CHLORIDE 0.9% IV 1,000 ML 999 ML IV CONT (16:59)
[2020-07-11 17:08] LABS: Lactic Acid Reflex 1.5 mmol/L (0.4-2.0)
[2020-07-11 17:14] LABS: Lipase 416 U/L (73-393)
[2020-07-11] MEDS: ONDANSETRON INJ 4 MG/2 ML VIAL IV PUSH (17:19)
--- NOTE | 2020-07-11 17:27 | ED.GENADULT ---
HPI - General Adult General Chief complaint: Recheck/Abnormal Lab/Rx Stated complaint: drain leaking Source: patient and family Mode of arrival: ambulatory Limitations: no limitations History of Present Illness HPI narrative: patient presents with her with a mid abdominal drain with a history of pancreatic cancer and has a bile drain, having a with Whipple procedure with surgeon that scheduled on Sunday, family noticed that there was excessive drainage from the drainage site that is in her abdomen, currently there is no fever chills she denies having any abdominal pain has some nausea but no vomiting no flank pain no diarrhea constipation. Onset (ago): day(s) Location: abdomen Severity: mild Related Data Home Medications Medication Instructions Recorded Confirmed aspirin [Adult Low Dose Aspirin] 81 mg PO DAILY 12/26/18 07/11/20 cholecalciferol (vitamin D3) 800 unit PO DAILY 12/26/18 07/11/20 clobetasol 1 applic TOPICAL DAILY 12/26/18 07/11/20 multivitamin 1 tablet PO DAILY 12/26/18 07/11/20 vitamin B complex [B 1 tablet PO DAILY 12/26/18 07/11/20 Complex-Vitamin B12] apixaban 5 mg tablet 5 mg PO BID 02/24/19 07/11/20 insulin lispro 100 unit/mL 5 unit SUBCUT .QAC PRN ml 02/24/19 07/11/20 subcutaneous pen calcium carbonate 500 mg calcium 500 mg PO BID tablet 08/28/19 07/11/20 (1,250 mg) tablet cranberry 800 mg PO DAILY 06/20/20 07/11/20 cyclobenzaprine 10 mg PO TID PRN 06/20/20 07/11/20 insulin glargine U-300 conc 3 unit SUB-Q QPM PRN 06/20/20 07/11/20 ondansetron 4 mg PO Q6H PRN 06/20/20 07/11/20 oxycodone 5 mg PO Q4H PRN 06/20/20 07/11/20 polyethylene glycol 3350 [Miralax] 17 g PO DAILY 06/20/20 07/11/20 rosuvastatin 20 mg PO DAILY 06/20/20 07/11/20 Allergies Allergy/AdvReac Type Severity Reaction Status Date / Time lisinopril Allergy Unknown Cough Verified 06/29/20 16:39 Review of Systems Review of Systems: All systems reviewed & are unremarkable except as noted in HPI and below PMFSH Past Medical History Medical History Atrial fibrillation and flutter Gastrointestinal tube present Hyperlipidemia Pancreatic cancer Sciatica, right side Type 2 diabetes mellitus Surgical History Surgical History H/O gastric bypass H/O tubal ligation History of heart artery stent Family History Family History Mother Family history of elevated blood lipids Acute myocardial infarction Father Family history of cardiovascular disease Family history of emphysema Mother Family history of hypercholesterolemia Sibling Family history of hypercholesterolemia Family history of cardiovascular disease Acute myocardial infarction Family history of cardiac disorder Father Family history of cardiovascular disease Acute myocardial infarction Other Family history of malignant neoplasm Family history of malignant neoplasm of bone Social History Social History Smoking status: Never smoker Second hand tobacco smoke exposure: Yes (Spouse smokes) Alcohol intake: never Substance use: never Substance use type: does not use Gender identity (if verbalized by the patient): Female Spiritual care concerns: No Exam Const: General: no acute distress and alert Orientation/consciousness: patient oriented x3 HENMT: Head: normal to inspection Eyes: Conjunctivae: conjunctivae normal Pupils: Equal, round and reactive pupils present EOM: EOMs intact bilaterally Direct Ophthalmoscopy: no photophobia Neck: Neck: normal visual inspection, no lymphadenopathy and no meningeal signs Chest: Chest palpation & inspection: normal inspection of the chest Cardio: Rate: regular rate Rhythm: regular rhythm GI: GI Palp: Yes Soft to palpation Other: Has a drainage tube mid abdomen and geovanny
[2020-07-11 18:02] VITALS: RESP 15
--- NOTE | 2020-07-12 09:23 | PC.NURSE ---
PATIENT CALLS TO ASK WHERE WE CAN SEND AUGMENTIN SCRIPT TO HER PHARMACY IS CLOSED - PT STATES SHE WILL CALL US BACK
--- NOTE | 2020-07-12 12:41 | PC.NURSE ---
NINFA CALLED INTO [facility] PER PATIENT REQUEST
== END 2020-07-11 18:03 | disposition home or self-care (01) ==
PROVIDERS: Emergency Provider Emergency Medicine; PCP Internal Medicine
DX: L02.91 Cutaneous abscess, unspecified (principal); C25.9 Malignant neoplasm of pancreas, unspecified; E11.9 Type 2 diabetes mellitus without complications; E78.5 Hyperlipidemia, unspecified
CPT/HCPCS: 36415; 74176; 80053; 83605; 83690; 85025; 87040; 87070; 87205; 96365; 96375; 99283; 99284; J0696; J2405; J7030

== ENCOUNTER 2020-07-26 16:33 | Emergency (ER) | payer MEDICARE, SELFPAY ==
[2020-07-26] VITALS (12 sets, daily range): BP systolic 79–138; BP diastolic 49–89; PULSE 90–158; RESP 17–23; TEMP 36.3–37.2; O2SAT 97–98
--- NOTE | ~2020-07-26 | XR_ITS ---
EXAMINATION: XR chest 1V portable DATE: 07/26/2020 17:31 INDICATION: Shortness of breath, hypotension and weakness TECHNIQUE: frontal view of the chest was obtained. COMPARISON: Chest radiograph and CT dated 06/20/2020 FINDINGS: Normal streaky atelectasis at the left lung base. No other airspace opacities, pulmonary edema, pleur al effusion or pneumothorax. The cardiomediastinal silhouette is normal. Lower thoracic dextrocurvatu re with moderate spondylosis. IMPRESSION: 1. Minimal left basilar atelectasis. Reviewed, dictated and finalized at location A.
[2020-07-26] MEDS: SODIUM CHLORIDE 0.9% IV 1,000 ML 999 ML (17:05)
--- NOTE | 2020-07-26 17:10 | ED.WEAKNESS ---
HPI - Weakness General Chief complaint: Weakness Stated complaint: dehydration, low blood pressure Time Seen by Provider: 07/26/20 17:10 Source: family Mode of arrival: wheelchair Limitations: no limitations History of Present Illness HPI Narrative: 69-year-old woman with a history of pancreatic cancer status post gastric bypass and liver resection and history of AFib and flutter comes in today complaining of weakness and low blood pressure at home. Patient states that she is scheduled to follow-up with an oncologist at the [facility] and Evy coming up. She has a biliary drain She denies cough or cold symptoms, difficulty breathing, chest pain, abdominal pain, vomiting or diarrhea. She denies any recent sick exposures. she states she has been immunized for COVID. Related Data Home Medications Medication Instructions Recorded Confirmed aspirin [Adult Low Dose Aspirin] 81 mg PO DAILY 12/26/18 07/26/20 cholecalciferol (vitamin D3) 800 unit PO DAILY 12/26/18 07/26/20 clobetasol 1 applic TOPICAL DAILY 12/26/18 07/26/20 multivitamin 1 tablet PO DAILY 12/26/18 07/26/20 vitamin B complex [B 1 tablet PO DAILY 12/26/18 07/26/20 Complex-Vitamin B12] apixaban 5 mg tablet 5 mg PO BID 02/24/19 07/26/20 insulin lispro 100 unit/mL 5 unit SUBCUT .QAC PRN ml 02/24/19 07/26/20 subcutaneous pen calcium carbonate 500 mg calcium 500 mg PO BID tablet 08/28/19 07/26/20 (1,250 mg) tablet cranberry 800 mg PO DAILY 06/20/20 07/26/20 cyclobenzaprine 10 mg PO TID PRN 06/20/20 07/26/20 insulin glargine U-300 conc 3 unit SUB-Q QPM PRN 06/20/20 07/26/20 ondansetron 4 mg PO Q6H PRN 06/20/20 07/26/20 oxycodone 5 mg PO Q4H PRN 06/20/20 07/26/20 polyethylene glycol 3350 [Miralax] 17 g PO DAILY 06/20/20 07/26/20 rosuvastatin 20 mg PO DAILY 06/20/20 07/26/20 Allergies Allergy/AdvReac Type Severity Reaction Status Date / Time lisinopril Allergy Unknown Cough Verified 06/29/20 16:39 Review of Systems Review of Systems: All systems reviewed & are unremarkable except as noted in HPI and below Constitutional: Constitutional: Denies chills, Reports fatigue, Denies fever(s) and Reports weakness Eyes: Eyes: Denies change in vision and Denies photophobia ENT: Denies dysphagia, Denies nasal congestion and Denies sore throat Cardiovascular: Cardiovascular: Denies chest pain and Denies radiating jaw, neck or arm pain Respiratory: Respiratory: Denies cough, Denies dyspnea and Denies wheezing Gastrointestinal: Gastrointestinal: Denies abdominal pain, Denies diarrhea, Denies nausea and Denies vomiting Genitourinary: Genitourinary: Denies hematuria, Denies nocturia and Denies dysuria Musculoskeletal: Musculoskeletal: Denies back pain, Denies arthralgias and Denies joint swelling Integumentary/Breasts: Skin/Breast: Denies pruritus, Denies erythema and Denies rash Neurologic: Denies vertigo, Denies dizziness, Denies syncope, Denies focal weakness and Denies numbness Hematologic/Lymphatic: Hematologic/Lymphatic: Reports easy bleeding and Reports easy bruising Allergic/Immunologic: Allergic/Immunologic: Denies lip swelling and Denies throat swelling PMFSH Past Medical History Medical History Atrial fibrillation and flutter Gastrointestinal tube present Hyperlipidemia Pancreatic cancer Sciatica, right side Type 2 diabetes mellitus Surgical History Surgical History H/O gastric bypass H/O tubal ligation History of heart artery stent Family History Family History Mother Family history of elevated blood lipids Acute myocardial infarction Father Family history of cardiovascular disease Family history of emphysema Mother Family history of hypercholesterolemia Sibling Family history of hypercholesterolemia Family history of cardiovascular disease Acute myocardial infa
[2020-07-26 17:42] LABS: Hematocrit 33.2 % (35.0-42.0); Hemoglobin 10.9 g/dL (11.7-13.8); Immature Platelet Fraction Pct 1.8 % (1.0-7.0); Mean Corpuscular HGB Conc 32.8 g/dL (32.0-36.0); Mean Corpuscular Hemoglobin 24.2 pg (27.0-31.0); Mean Corpuscular Volume 73.8 fL (78.0-102.0); Mean Platelet Volume 8.6 fl (9.2-11.8); Platelet Count Result 875 K/mm3 (150-420); Red Cell Distribution Width 14.6 % (11.6-14.4)
[2020-07-26 17:43] LABS: White Blood Count 33.1 K/mm3 (4.8-10.8)
[2020-07-26 17:55] LABS: INR 1.5; Partial Thromboplastin Time 32.9 SEC (23.90-30.70); Prothrombin Time 15.3 Seconds (9.50-12.10)
[2020-07-26 17:59] LABS: Alanine Aminotransferase 17 U/L (14-59); Albumin Level 2.2 g/dL (3.4-5.0); Alkaline Phosphatase 98 U/L (46-116); Anion Gap 10 mmol/L (8-16); Aspartate Amino Transferase 17 U/L (15-37); Bilirubin,Total 0.5 mg/dL (0.00-1.00); Blood Urea Nitrogen 44 mg/dL (7-18); Calcium 8.9 mg/dL (8.5-10.1); Carbon Dioxide 28 mmol/L (21-32); Chloride 84 mmol/L (98-108); Estimated Glomerular Filt Rate 36; Glucose 256 mg/dL (70-99); Osmolality Calculated 274 mOsm/kg (285-295); Potassium 3.2 mmol/L (3.5-5.1); Sodium 122 mmol/L (136-145); Total Protein 7.1 g/dL (6.4-8.2)
[2020-07-26 18:01] LABS: Lactic Acid Reflex 2.2 mmol/L (0.4-2.0)
[2020-07-26 18:06] LABS: CRP 14.5 mg/dL (0.0-0.9)
[2020-07-26 18:09] LABS: Band Neutrophils Percent 0 % (0-6); Basophils Percent Manual 0 % (0-1); Eosinophils Percent Manual 0 % (1-6); Lymphocytes Absolute Manual 1.32 K/mm3 (1.1-4.5); Lymphocytes Percent Manual 4 % (18-44); Monocytes Absolute Manual 0.99 K/mm3 (0.1-0.90); Monocytes Percent Manual 3 % (3-9); Neutrophils Absolute Manual 30.78 K/mm3 (1.7-7.2); Neutrophils Percent Manual 93 % (46-73); Platelet Estimate Increased (Adequate); Total Cells Counted 100
[2020-07-26 18:48] LABS: Add Urine Microscopic? YES; Appearance Urine Sl Cloudy (Clear); Bilirubin Urine Negative (Negative); Blood Urine 3+ (Negative); Color Urine Yellow (Yellow); Glucose Urine UA Negative (Negative); Ketones Urine Negative (Negative); Leukocyte Esterase Ur Negative LEU/UL (Negative); Nitrate Urine Negative (Negative); Protein Urine Trace (Negative); Specific Grav Ur >= 1.030 (1.010-1.020); Urobilinogen Urine 0.2 mg/dL (0.2-1.0); pH Urine 5.5 (5.0-8.0)
[2020-07-26 19:00] LABS: Bacteria Urine Trace /hpf; Budding Yeast Urine Present /hpf; RBC Urine 21-50 /hpf (0-2); Squamous Epithelial Cell Urine Rare /hpf (Few); WBC Urine 0-3 /hpf (0-3)
--- NOTE | 2020-07-26 19:10 | PC.NURSE ---
request ICU bed, called [facility], states no ICU beds. Notified ER doctor states, now just needs Medical bed
--- NOTE | 2020-07-26 19:18 | ECG_ITS ---
Measurements Intervals [place] Rate: 161 P: UT: 0 QRS: -43 QRSD: 124 T: 127 QT: 316 QTc: 518 Interpretive Statements ATRIAL FIBRILLATION WITH RAPID VENTRICULAR RESPONSE LEFT AXIS DEVIATION INTRAVENTRICULAR CONDUCTION DELAY VOLTAGE CRITERIA FOR LVH BORDERLINE R WAVE PROGRESSION, ANTERIOR LEADS ST-T WAVE ABNORMALITY IN HIGH LATERAL LEADS- CONSIDER ISCHEMIA BASELINE WANDER- V4 ABNORMAL ECG Electronically Signed On 07-26-2020 21:51:33 CDT by Tyler Blanco D.O.
--- NOTE | 2020-07-26 19:20 | PC.NURSE ---
1914 Called [facility] no medical or Tele beds 1919 Called [facility] stated not taking calls unless stemi or stroke they are over whelmed with calls, to try in 20 min
[2020-07-26] MEDS: SODIUM CHLORIDE 0.9% IV 1,000 ML 999 ML IV CONT (19:32)
--- NOTE | 2020-07-26 19:53 | PC.NURSE ---
[address] [facility] transfer line called for [facility]. Will get oncology paged
--- NOTE | 2020-07-26 20:19 | PC.NURSE ---
1900 requested COVID for transfer, 1950 requested again COVID for transfer, MD would not order
[2020-07-26 20:24] LABS: Occult Blood Negative (Negative)
[2020-07-26 20:33] LABS: SARS-CoV-2 Ag Negative (Negative)
[2020-07-26 20:36] LABS: Reflex Lactic Acid Yes or No Add Lactic
[2020-07-26] MEDS: AMIODARONE 150 MG/D5W 100 ML 150 MG/100 ML BAG 600 MG IV CONT (20:39)
[2020-07-26] MEDS: METOCLOPRAMIDE HCL INJ 10 MG/2 ML VIAL IV PUSH (20:40)
[2020-07-26 21:08] LABS: Troponin I 22.3 ng/L (0.00-60.4)
[2020-07-26 21:09] LABS: Lactic Acid 1.8 mmol/L (0.4-2.0)
--- NOTE | 2020-07-26 21:38 | PC.NURSE ---
Called [facility] transfer line, currently no beds. Hoping to have one some time tonight
--- NOTE | 2020-07-26 22:05 | PC.NURSE ---
2200 Called [facility], only BLS transfer team, this is ALS. 2206 [facility] service paged.
--- NOTE | 2020-07-26 22:39 | PC.NURSE ---
2210MD changed dressing around Gtube
== END 2020-07-26 22:38 | disposition short-term general hospital (02) ==
PROVIDERS: Emergency Provider Emergency Medicine; PCP Internal Medicine
DX: A41.9 Sepsis, unspecified organism (principal); E87.1 Hypo-osmolality and hyponatremia; I48.20 Chronic atrial fibrillation, unspecified; E87.6 Hypokalemia; Z85.07 Personal history of malignant neoplasm of pancreas; E11.9 Type 2 diabetes mellitus without complications
CPT/HCPCS: 36415; 71045; 80053; 81001; 82272; 83605; 84484; 85025; 85055; 85610; 85730; 86140; 87040; 87086; 87426; 93005; 96361; 96365; 96367; 96375; 99285; C9803; J0282; J0713; J2765; J3370; J7030

== ENCOUNTER 2020-08-16 14:31 | Inpatient (IN) | payer MEDICARE, SELFPAY ==
[2020-08-16] VITALS (7 sets, daily range): BP systolic 97–103; BP diastolic 60–70; PULSE 67–76; RESP 12–15; TEMP 36.2–37.1; O2SAT 95–99; BMI 23.7
--- NOTE | ~2020-08-16 | XR_ITS ---
EXAMINATION: XR chest 1V portable EXAM DATE: 08/16/2020 15:16 INDICATION: Syncope, pancreatic and liver cancer. TECHNIQUE: Portable AP frontal chest x-ray was obtained. Comparison is made to prior examination from 07/26/2020. Correlation was made with CT 06/20/2020. FINDINGS: Small amount of linear right upper lobe opacity probably atelectasis. The lungs are otherwi se clear. There are no pleural effusions. The cardiomediastinal silhouette is within normal limits. There is no pneumothorax suspected. The bones and soft tissues are unremarkable. IMPRESSION: Small amount of linear right upper lobe opacity probably subsegmental atelectasis. Reviewed, dictated and finalized at location A. IMPRESSION: Small amount of linear right upper lobe opacity probably subsegment al atelectasis.
--- NOTE | ~2020-08-16 | CT_ITS ---
EXAMINATION: CT chest abdomen pelvis w con DATE: 08/17/2020 18:15 CDT INDICATION: Hyponatremia staging. Pancreatic cancer with liver metastases. TECHNIQUE: Computed tomography (CT) of the chest, abdomen, and pelvis was performed with 100 cc Omnip aque 350 intravenous contrast. The dose-length product was 487.53 mGy-cm. Automated exposure control and iterative reconstruction technique were employed. COMPARISON: CT dated 07/11/2020 FINDINGS: Moderate right pleural effusion. Heart size is normal. No suspicious pulmonary nodules/masses. No end obronchial lesions. Small subcentimeter hypodensity left thyroid lobe, most likely benign. There is a therosclerosis of the aorta and coronary arteries without aneurysm. There is an ill-defined 2.6 cm ma ss uncinate process of the pancreas with dilated pancreatic duct, likely secondary to obstruction. Th ere is a gastric tube present in expected position. The stomach and proximal duodenum are dilated, po ssibly due to obstruction. The remainder of the bowel is nondilated. Bladder is unremarkable. There are gallstones. The liver and spleen are unremarkable. Adrenal glands and kidneys within normal limits. There is a midline surgical incision above the umbilicus. There are changes of gastric bypas s surgery. No free air or free fluid. No abnormal pelvic masses or fluid collections. Mild thoracic a nd lumbar spondylosis with scoliosis. No focal lytic or blastic lesions. There is grade 1 degenerativ e spondylolisthesis at L3-4. IMPRESSION: 1. Poorly circumscribed 2.5 cm pancreatic mass at the uncinate process, likely corresponding to known pancreatic malignancy. There is obstruction with dilation of the pancreatic duct. There is also like ly obstruction of the duodenum at this level. The proximal duodenum and stomach are markedly distende d with fluid and debris. 2: Cholelithiasis. 3: Gastric tube in expected position. Reviewed, dictated and finalized at location A. IMPRESSION: 1. Poorly circumscribed 2.5 cm pancreatic mass at the uncinate process, likely corresponding to known pancreatic malignancy. There is obstruction with dilatio n of the pancreatic duct. There is also likely obstruction of the duodenum at t his level. The proximal duodenum and stomach are markedly distended with fluid and debris. 2: Cholelithiasis. 3: Gastric tube in expected position.
--- NOTE | ~2020-08-16 | CT_ITS ---
EXAMINATION: CT brain wo con EXAM DATE: 08/16/2020 15:16 INDICATION: Syncope, pancreatic and liver cancer. Lack of coordination. TECHNIQUE: Spiral CT of the head was performed without contrast. Axial, coronal and sagittal images were reviewed. The dose-length product (DLP) for this examination was 605.33 mGy-cm. The exposure w as tailored according to patient size, and iterative reconstruction (ASIR) was used as additional dos e reduction technique. Comparison is made to prior examination from 06/20/2020. FINDINGS: There is no acute intraparenchymal hemorrhage. No evidence of intraparenchymal brain mass lesion. No evidence of acute infarction. There is no mass effect or midline shift. The ventricles are normal in size. There are no extra-axial collections. There are no acute calvarial fractures. T he orbits are unremarkable. Soft tissue is unremarkable. The visualized sinuses and mastoid air gayla ls are well aerated. IMPRESSION: 1. No acute intracranial findings. Reviewed, dictated and finalized at location A.
--- NOTE | 2020-08-16 14:42 | ECG_ITS ---
Measurements Intervals [place] Rate: 77 P: 77 VT: 163 QRS: -35 QRSD: 142 T: 96 QT: 481 QTc: 546 Interpretive Statements SINUS RHYTHM LEFT AXIS DEVIATION INTRAVENTRICULAR CONDUCTION DELAY ST-T WAVE ABNORMALITY IN HIGH LATERAL LEADS- CONSIDER ISCHEMIA BASELINE WANDER- AVR, V1-V3 ABNORMAL ECG Electronically Signed On 08-17-2020 10:39:39 CDT by Tyler Blanco D.O.
--- NOTE | 2020-08-16 15:00 | PC.NURSE ---
Completed bedside shift report. Patient resting comfortably in bed, with family visiting.
[2020-08-16 15:10] LABS: Basophils Absolute Auto 0.03 K/mm3 (0.00-0.10); Basophils Percent Auto 0.2 % (0.0-1.0); Eosinophils Absolute Auto 0.12 K/mm3 (0.02-0.50); Eosinophils Percent Auto 0.9 % (1.0-6.0); Hematocrit 32.8 % (35.0-42.0); Hemoglobin 10.6 g/dL (11.7-13.8); Immature Granulocyte Absolute 0.11 K/mm3 (0.00-0.00); Immature Granulocyte Percent A 0.9 % (0.0-0.0); Immature Platelet Fraction Pct 1.3 % (1.0-7.0); Lymphocytes Percent Auto 11.8 % (18.0-42.0); Mean Corpuscular HGB Conc 32.3 g/dL (32.0-36.0); Mean Corpuscular Hemoglobin 22.9 pg (27.0-31.0); Mean Platelet Volume 8.4 fl (9.2-11.8); Monocytes Absolute Auto 0.94 K/mm3 (0.10-0.90); Monocytes Percent Auto 7.4 % (2.0-11.0); Neutrophils Percent Auto 78.8 % (50.0-70.0); Platelet Count Result 800 K/mm3 (150-420); Red Blood Count 4.62 M/mm3 (4.20-5.40); Red Cell Distribution Width 15.1 % (11.6-14.4); White Blood Count 12.7 K/mm3 (4.8-10.8)
[2020-08-16] MEDS: SODIUM CHLORIDE 0.9% IV 1,000 ML 999 ML IV CONT (15:19)
[2020-08-16 15:20] LABS: INR 1.2; Partial Thromboplastin Time 27.6 SEC (23.90-30.70); Prothrombin Time 13.1 Seconds (9.50-12.10)
[2020-08-16 15:28] LABS: Lactic Acid Reflex 2.8 mmol/L (0.4-2.0)
[2020-08-16 15:35] LABS: Alanine Aminotransferase 23 U/L (14-59); Albumin Level 2.7 g/dL (3.4-5.0); Alkaline Phosphatase 88 U/L (46-116); Anion Gap 9 mmol/L (8-16); Aspartate Amino Transferase 24 U/L (15-37); Bilirubin,Total 0.5 mg/dL (0.00-1.00); Blood Urea Nitrogen 47 mg/dL (7-18); Carbon Dioxide 30 mmol/L (21-32); Chloride 80 mmol/L (98-108); Estimated Glomerular Filt Rate 41; Glucose 337 mg/dL (70-99); Magnesium 2.2 mg/dL (1.8-2.4); NT Pro B Type Natriuretic Pept 678 pg/mL (0-125); Osmolality Calculated 273 mOsm/kg (285-295); Potassium 2.8 mmol/L (3.5-5.1); Total Protein 7.5 g/dL (6.4-8.2); Troponin I 16.6 ng/L (0.00-60.4)
[2020-08-16 15:42] LABS: Sodium 119 mmol/L (136-145)
--- NOTE | 2020-08-16 16:01 | ED.SYNCOPE ---
HPI - Syncope General Chief Complaint: Syncope Stated Complaint: AMB Source: patient, family and EMS Mode of arrival: EMS Limitations: no limitations History of Present Illness HPI narrative: this is a 70-year-old female with history of diabetes atrial fibrillation hypertension history of pancreatic cancer, that recently had a syncopal episode at home witnessed by her apparently was out for approximately couple of minutes with some bladder dysfunction, there was no witnessed shaking or seizure activity. The patient has a history of pancreatic cancer, was to have a Whipple procedure but during surgery found to have metastases to the liver and had partial resection of her liver. Patient currently appears comfortable with some no seizure activity no fever or chills no abdominal pain no shortness of breath or chest pain. Patient is a diabetic and EMS found that her blood sugar was 370. Currently there is no headaches no blurry vision no neurological deficits. MD complaint: loss of consciousness Onset (ago): minute(s) Duration of episode: 2 -: minutes(s) Prodromal symptoms: none Witnessed: Yes - by Other ( ) Context: at rest Injuries sustained associated with event: none Current symptoms: weakness Related Data Home Medications Medication Instructions Recorded Confirmed aspirin [Adult Low Dose Aspirin] 81 mg PO DAILY 12/26/18 08/16/20 cholecalciferol (vitamin D3) 800 unit PO DAILY 12/26/18 08/16/20 clobetasol 1 applic TOPICAL DAILY 12/26/18 08/16/20 multivitamin 1 tablet PO DAILY 12/26/18 08/16/20 apixaban 5 mg tablet 5 mg PO BID 02/24/19 08/16/20 insulin lispro 100 unit/mL 5 unit SUBCUT .QAC PRN ml 02/24/19 08/16/20 subcutaneous pen calcium carbonate 500 mg calcium 500 mg PO BID tablet 08/28/19 08/16/20 (1,250 mg) tablet cranberry 800 mg PO DAILY 06/20/20 08/16/20 insulin glargine U-300 conc 3 unit SUB-Q QPM PRN 06/20/20 08/16/20 ondansetron 4 mg PO Q6H PRN 06/20/20 08/16/20 oxycodone 5 mg PO Q4H PRN 06/20/20 08/16/20 polyethylene glycol 3350 [Miralax] 17 g PO DAILY 06/20/20 08/16/20 rosuvastatin 20 mg PO DAILY 06/20/20 08/16/20 acetaminophen 1,000 mg PO Q6H PRN 08/16/20 08/16/20 amiodarone 200 mg PO DAILY 08/16/20 08/16/20 cyanocobalamin (vitamin B-12) 500 mcg PO DAILY 08/16/20 08/16/20 gabapentin 300 mg PO TID 08/16/20 08/16/20 bfnpsx-yjkddmrf-vaizkbl 1 tablet PO DAILY 08/16/20 08/16/20 [Pancrelipase] senna-docusate sodium 1 cap PO BID 08/16/20 08/16/20 Allergies Allergy/AdvReac Type Severity Reaction Status Date / Time lisinopril Allergy Unknown Cough Verified 06/29/20 16:39 Review of Systems Review of Systems: All systems reviewed & are unremarkable except as noted in HPI and below PMFSH Past Medical History Medical History Atrial fibrillation and flutter Gastrointestinal tube present Hyperlipidemia Pancreatic cancer Sciatica, right side Type 2 diabetes mellitus Surgical History Surgical History H/O gastric bypass H/O tubal ligation History of heart artery stent Family History Family History Mother Family history of elevated blood lipids Acute myocardial infarction Father Family history of cardiovascular disease Family history of emphysema Mother Family history of hypercholesterolemia Sibling Family history of hypercholesterolemia Family history of cardiovascular disease Acute myocardial infarction Family history of cardiac disorder Father Family history of cardiovascular disease Acute myocardial infarction Other Family history of malignant neoplasm Family history of malignant neoplasm of bone Social History Social History Smoking status: Never smoker Second hand tobacco smoke exposure: Yes (Spouse smokes) Alcohol intake: never Substance
[2020-08-16] MEDS: SODIUM CHLORIDE 0.9% IV 1,000 ML 100 ML IV CONT ×2 (17:01→20:54)
[2020-08-16] MEDS: KCL 20 MEQ/SW 100 ML 100 ML 50 MEQ IVPB (17:12)
[2020-08-16 17:24] LABS: Glucose Point of Care 341 mg/dl (65-105)
[2020-08-16] MEDS: SENNA/DOCUSATE SODIUM TABLET 1 TAB PO (17:56)
[2020-08-16] MEDS: APIXABAN 2.5 MG TABLET 5 MG PO (17:56)
[2020-08-16] MEDS: CALCIUM CARBONATE (OSCAL) 500 MG TABLET PO (17:57)
[2020-08-16] MEDS: GABAPENTIN 300 MG CAPSULE PO (17:57)
[2020-08-16 18:05] LABS: Reflex Lactic Acid Yes or No Add Lactic
--- NOTE | 2020-08-16 19:51 | ADMGEN ---
This patient, Shivani Carlin, was admitted to 2nd Floor Room 205-2. Patient oriented to hospital policies and general routines including ID bracelet, bed and alarms, visiting hours, pain management, procedures, bathroom and other care routines, personal items, smoking policy, room service/diet, and visiting hours. Information on how to activate the Rapid Response Team has been discussed. Patient is encouraged to report perceived risks to care and to ask questions if she does not understand what she is told or what she should do.
[2020-08-16 21:03] LABS: Glucose Point of Care 333 mg/dl (65-105)
--- NOTE | 2020-08-16 21:05 | PC.NURSE ---
notified that patient's HS blood sugar result is 333. New order received for Humalog 8 units x1.
[2020-08-17] VITALS (14 sets, daily range): BP systolic 70–111; BP diastolic 40–77; PULSE 68–100; RESP 18–20; TEMP 35.9–36.6; O2SAT 97–99
[2020-08-17 05:16] LABS: Basophils Absolute Auto 0.04 K/mm3 (0.00-0.10); Basophils Percent Auto 0.4 % (0.0-1.0); Eosinophils Absolute Auto 0.17 K/mm3 (0.02-0.50); Eosinophils Percent Auto 1.6 % (1.0-6.0); Hematocrit 28.9 % (35.0-42.0); Hemoglobin 9.1 g/dL (11.7-13.8); Lymphocytes Absolute Auto 1.62 K/mm3 (1.10-4.50); Lymphocytes Percent Auto 15.6 % (18.0-42.0); Mean Corpuscular HGB Conc 31.5 g/dL (32.0-36.0); Mean Corpuscular Hemoglobin 22.8 pg (27.0-31.0); Mean Corpuscular Volume 72.3 fL (78.0-102.0); Mean Platelet Volume 8.5 fl (9.2-11.8); Monocytes Absolute Auto 0.91 K/mm3 (0.10-0.90); Monocytes Percent Auto 8.8 % (2.0-11.0); Neutrophils Absolute Auto 7.6 K/mm3 (1.7-7.2); Neutrophils Percent Auto 72.6 % (50.0-70.0); Platelet Count Result 511 K/mm3 (150-420); Red Cell Distribution Width 15.1 % (11.6-14.4); White Blood Count 10.4 K/mm3 (4.8-10.8)
[2020-08-17 05:28] LABS: Alanine Aminotransferase 13 U/L (14-59); Albumin Level 2.3 g/dL (3.4-5.0); Alkaline Phosphatase 69 U/L (46-116); Anion Gap 7 mmol/L (8-16); Aspartate Amino Transferase 23 U/L (15-37); Bilirubin,Total 0.4 mg/dL (0.00-1.00); Blood Urea Nitrogen 39 mg/dL (7-18); Calcium 8.5 mg/dL (8.5-10.1); Carbon Dioxide 31 mmol/L (21-32); Chloride 88 mmol/L (98-108); Estimated CRCL calculation 50 ml/min; Estimated Glomerular Filt Rate > 60; Glucose 188 mg/dL (70-99); Osmolality Calculated 276 mOsm/kg (285-295); Potassium 2.9 mmol/L (3.5-5.1); Sodium 126 mmol/L (136-145); Total Protein 6.2 g/dL (6.4-8.2)
[2020-08-17 05:53] LABS: Lactic Acid Reflex 0.7 mmol/L (0.4-2.0)
[2020-08-17] MEDS: SODIUM CHLORIDE 0.9% IV 1,000 ML 100 ML IV CONT ×2 (06:38→17:27)
[2020-08-17] MEDS: KCL 20 MEQ/SW 100 ML 100 ML 50 MEQ IVPB (07:34)
--- NOTE | 2020-08-17 07:53 | PC.NURSE ---
pt resting in bed, 2nd potassium iv began see APR, pt denies any complaints or needs at this time
[2020-08-17] MEDS: POTASSIUM CHLORIDE 20 MEQ TABLET 40 MEQ PO ×3 (08:34→17:25)
[2020-08-17] MEDS: ROSUVASTATIN 10 MG TABLET 20 MG PO (08:35)
[2020-08-17] MEDS: SENNA/DOCUSATE SODIUM TABLET 1 TAB PO ×2 (08:35→17:19)
[2020-08-17] MEDS: GABAPENTIN 300 MG CAPSULE PO ×3 (08:35→17:19)
[2020-08-17] MEDS: CALCIUM CARBONATE (OSCAL) 500 MG TABLET PO ×2 (08:35→17:19)
[2020-08-17] MEDS: MULTIVITAMINS THERAPEUTIC TAB (*BKC) 1 TABLET PO (08:35)
[2020-08-17] MEDS: ASPIRIN 81 MG ENTERIC TABLET PO (08:35)
[2020-08-17] MEDS: polyethylene glycoL 3350 17 GM POWD.PACK PO (08:35)
[2020-08-17] MEDS: CYANOCOBALAMIN 1,000 MCG TABLET 500 MCG PO (08:35)
[2020-08-17] MEDS: AMIODARONE HCL 200 MG TABLET PO (08:36)
[2020-08-17] MEDS: APIXABAN 2.5 MG TABLET 5 MG PO ×2 (08:36→17:19)
[2020-08-17] MEDS: CHOLECALCIFEROL 400 UNITS TABLET (VIT D) 800 UNITS PO (08:38)
--- NOTE | 2020-08-17 08:55 | PC.NURSE ---
pt sitting up in bed watching tv, iv fluids and medications running per order, pt c/o little bit of pain in chest and belly area, refuses any medication or anything else at this time
--- NOTE | 2020-08-17 09:15 | PC.NURSE ---
patient services coordinator at bedside
--- NOTE | 2020-08-17 10:09 | PHAR ---
08/17/20 VERIFIED PT.'S HOME MED CREON 36,000U=LIPASE 36,000/PROTEASE 114,000/AMYLASE 180,000U/CAPSULE. PT TAKES 2 CAPS TID W/MEALS PT USING OWN HOME MED. TLS
[2020-08-17 11:37] LABS: Glucose Point of Care 313 mg/dl (65-105)
--- NOTE | 2020-08-17 12:00 | PM.IMHP ---
H&P: HPI History of Present Illness Date/Time: 08/17/20 12:00 Shivani Carlin is a 70 year old female admitted to Observation for syncopal episode. Pt states she had gotten up to use the restroom at night and felt like she was not going to make it all the way to the restroom. She began to return to her bed and blacked out. Pt states she has been doing this more frequently lately. Pt has a PMHx of HLD, Pancreatic CA, T2DM, Neuropathy, Atrial fibrillation, and bronchitis. She was to have a Whipple procedure performed however it was found that she had metastases to the Liver resulting in a partial Liver resection. Orthostatic VS obtained today showing Laying 103/59 HR 76, Sitting 94/58 HR 81, and standing 70/40 HR 100. Pt denies fever, chills, N/V, TIAN. She admits to feeling a little off, light headed with standing, occasional dizziness while laying down, she does have some pain in her chest that is reproducible with pressure to the sternum and the pain does not radiate and is mild. Chief Complaint: Blacked Out, fainting Review of Systems Review of Systems: All systems reviewed & are unremarkable except as noted in HPI and below [facility] Past Medical History Medical History (Updated 08/17/20 @ 13:08 by DAVID Rutledge) Atrial fibrillation and flutter Gastrointestinal tube present Hyperlipidemia Pancreatic cancer Sciatica, right side Type 2 diabetes mellitus Surgical History Surgical History H/O gastric bypass H/O tubal ligation History of heart artery stent Family History Family History Mother Family history of elevated blood lipids Acute myocardial infarction Father Family history of cardiovascular disease Family history of emphysema Mother Family history of hypercholesterolemia Sibling Family history of hypercholesterolemia Family history of cardiovascular disease Acute myocardial infarction Family history of cardiac disorder Father Family history of cardiovascular disease Acute myocardial infarction Other Family history of malignant neoplasm Family history of malignant neoplasm of bone Social History Social History Smoking status: Never smoker Second hand tobacco smoke exposure: Yes Alcohol intake: former Substance use: never Substance use type: does not use Gender identity (if verbalized by the patient): Female Spiritual care concerns: No Meds Home Medications and Allergies Home Medications Medication Instructions Recorded Confirmed Type aspirin [Adult Low Dose Aspirin] 81 mg PO DAILY 12/26/18 08/16/20 History cholecalciferol (vitamin D3) 800 unit PO DAILY 12/26/18 08/16/20 History clobetasol 1 applic TOPICAL DAILY 12/26/18 08/16/20 History multivitamin 1 tablet PO DAILY 12/26/18 08/16/20 History apixaban 5 mg tablet 5 mg PO BID 02/24/19 08/16/20 History insulin lispro 100 unit/mL 5 unit SUBCUT .QAC PRN ml 02/24/19 08/16/20 History subcutaneous pen calcium carbonate 500 mg calcium 500 mg PO BID tablet 08/28/19 08/16/20 History (1,250 mg) tablet citalopram 20 mg tablet 20 mg PO DAILY #90 tablet 09/22/19 08/16/20 Rx albuterol sulfate 90 mcg/actuation 2 puff INHALATION QID PRN #6.7 g 01/02/20 08/16/20 Rx aerosol inhaler cranberry 800 mg PO DAILY 06/20/20 08/16/20 History insulin glargine U-300 conc 3 unit SUB-Q QPM PRN 06/20/20 08/16/20 History ondansetron 4 mg PO Q6H PRN 06/20/20 08/16/20 History oxycodone 5 mg PO Q4H PRN 06/20/20 08/16/20 History polyethylene glycol 3350 [Miralax] 17 g PO DAILY 06/20/20 08/16/20 History rosuvastatin 20 mg PO DAILY 06/20/20 08/16/20 History acetaminophen 1,000 mg PO Q6H PRN 08/16/20 08/16/20 History amiodarone 200 mg PO DAILY 08/16/20 08/16/20 History cyanocobalamin (vitamin B-12) 500 mcg PO DAILY 08/16/20 08/16/20 History gabapentin 300 mg PO TID 08/16/20 08/16/20 History
[2020-08-17] MEDS: MIDODRINE HCL 2.5 MG TABLET 5 MG PO ×2 (12:54→17:18)
--- NOTE | 2020-08-17 13:19 | PC.NURSE ---
pt sitting up in bed visiting with family, iv fluids infusing per order, tele monitor continues, Brent BAH stated okay to given potassium with dinner instead of at 1500.
--- NOTE | 2020-08-17 16:45 | PC.NURSE ---
Patient gone to radiology per tech in wheelchair for CT scan.
--- NOTE | 2020-08-17 17:10 | PC.NURSE ---
Patient returned to floor from radiology and transferred back to bed per coating technician.
[2020-08-17 17:38] LABS: Glucose Point of Care 193 mg/dl (65-105)
--- NOTE | 2020-08-17 18:36 | PC.NURSE ---
Patient resting in bed. No apparent distress. Call light and needed items within reach.
[2020-08-17 20:40] LABS: Glucose Point of Care 338 mg/dl (65-105)
[2020-08-18] VITALS (12 sets, daily range): BP systolic 76–115; BP diastolic 47–72; PULSE 65–80; RESP 14–20; TEMP 35.8–36.8; O2SAT 97–100
[2020-08-18] MEDS: SODIUM CHLORIDE 0.9% IV 1,000 ML 100 ML IV CONT (03:35)
[2020-08-18 05:12] LABS: Hematocrit 27.6 % (35.0-42.0); Hemoglobin 8.5 g/dL (11.7-13.8); Mean Corpuscular HGB Conc 30.8 g/dL (32.0-36.0); Mean Corpuscular Volume 74.8 fL (78.0-102.0); Mean Platelet Volume 8.4 fl (9.2-11.8); Platelet Count Result 513 K/mm3 (150-420); Red Blood Count 3.69 M/mm3 (4.20-5.40); Red Cell Distribution Width 15.4 % (11.6-14.4); White Blood Count 10.3 K/mm3 (4.8-10.8)
[2020-08-18 05:24] LABS: Anion Gap 8 mmol/L (8-16); Blood Urea Nitrogen 24 mg/dL (7-18); Calcium 8.2 mg/dL (8.5-10.1); Carbon Dioxide 27 mmol/L (21-32); Chloride 94 mmol/L (98-108); Estimated CRCL calculation 55 ml/min; Estimated Glomerular Filt Rate > 60; Glucose 232 mg/dL (70-99); Magnesium 1.9 mg/dL (1.8-2.4); Osmolality Calculated 279 mOsm/kg (285-295); Potassium 4.5 mmol/L (3.5-5.1); Sodium 129 mmol/L (136-145)
[2020-08-18 07:35] LABS: Glucose Point of Care 264 mg/dl (65-105)
[2020-08-18] MEDS: polyethylene glycoL 3350 17 GM POWD.PACK PO (09:31)
[2020-08-18] MEDS: CYANOCOBALAMIN 1,000 MCG TABLET 500 MCG PO (09:31)
[2020-08-18] MEDS: ROSUVASTATIN 10 MG TABLET 20 MG PO (09:32)
[2020-08-18] MEDS: SENNA/DOCUSATE SODIUM TABLET 1 TAB PO ×2 (09:32→17:16)
[2020-08-18] MEDS: GABAPENTIN 300 MG CAPSULE PO ×3 (09:32→17:17)
[2020-08-18] MEDS: ASPIRIN 81 MG ENTERIC TABLET PO (09:32)
[2020-08-18] MEDS: MULTIVITAMINS THERAPEUTIC TAB (*BKC) 1 TABLET PO (09:33)
[2020-08-18] MEDS: AMIODARONE HCL 200 MG TABLET PO (09:33)
[2020-08-18] MEDS: APIXABAN 2.5 MG TABLET 5 MG PO ×2 (09:33→17:16)
[2020-08-18] MEDS: MIDODRINE HCL 2.5 MG TABLET 5 MG PO (09:34)
[2020-08-18] MEDS: CALCIUM CARBONATE (OSCAL) 500 MG TABLET PO ×2 (09:34→17:16)
[2020-08-18] MEDS: CHOLECALCIFEROL 400 UNITS TABLET (VIT D) 800 UNITS PO (10:16)
--- NOTE | 2020-08-18 10:23 | PM.IMPN ---
Progress Note: A&P Assessment and Plan (1) Syncopal episodes: Code(s): R55 - Syncope and collapse Status: Acute Assessment and Plan: Pt states she has been having such episodes more often lately, Orthostatic BP L 103/59 HR 76, Sit 94/58 HR 81, Standing 70/40 HR 100, Started Midodrine 5 mg TID, VS Q4H, 1 L NS bolus in ER, NS @ 100ml/h, up with assistance, BSC, Orthostatic VS Q Shift 08/18/2020 Sitting BP 112/58, standing BP 76/52, increased Midodrine to 10 mg TID, IVF stopped at this time, taking PO fluids well (2) Acute hyponatremia: Code(s): E87.1 - Hypo-osmolality and hyponatremia Status: Acute Assessment and Plan: Na/Cl 126/88, continue NS at 100ml/h, monitoring BMP 08/18/2020 Na/Cl 129/94, will consider starting Sodium tabs, will give 1 L NS bolus over 2 hours for electrolytes and orthostatic hypotension, continue to monitor, Obtaining records from [facility] for comparison of previous labs (3) Acute hypokalemia: Code(s): E87.6 - Hypokalemia Status: Acute Assessment and Plan: K 2.9 and was given 20 mEq in ER, 40 PO this AM, and 20 IV this AM, after rounding an additional 40 mEq X 2 PO 3 hours apart, monitor BMP, Mag 2.2 yesterday, EKG NSR with QTc of 546, continue Eliquis 08/18/2020 K 4.5 this AM, Mag 1.9, continue to monitor, supplement at needed (4) Paroxysmal atrial fibrillation: Code(s): I48.0 - Paroxysmal atrial fibrillation Status: Acute Assessment and Plan: Continue Amiodarone, Cardiac Monitoring, correct electrolytes 08/18/2020 Continue Amiodarone, Cardiac Monitoring, K corrected, NaCl is correcting, continue Eliquis, rate is controlled (5) Type 2 diabetes mellitus: Qualifiers: Diabetes mellitus complication detail: with unspecified neuropathy Diabetes mellitus complication status: with neurologic complications Diabetes mellitus roasterman insulin use: with roasterman use Qualified Code(s): E11.40 - Type 2 diabetes mellitus with diabetic neuropathy, unspecified; Z79.4 - terminal computer operator (current) use of insulin Code(s): E11.9 - Type 2 diabetes mellitus without complications Status: Acute Assessment and Plan: Diabetic Diet, ACHS glucose monitoring, SSI, hypoglycemic protocol 08/18/2020 Glucose around 250 today, continue monitoring, continue as noted above (6) Anemia: Code(s): D64.9 - Anemia, unspecified Status: Acute Assessment and Plan: H/H 9.1/28.9, monitor, transfuse if < 7 Hgb, no bleeding observed 08/18/2020 H/H 8.5/27.6, will check stool for blood, possible diluted from IVFs which have been stopped at this time (7) Bronchitis: Code(s): J40 - Bronchitis, not specified as acute or chronic Status: Acute Assessment and Plan: Continue Albuterol MDI, supplemental Oxygen as needed, stable condition (8) Hyperlipidemia: Qualifiers: Hyperlipidemia type: mixed hyperlipidemia Qualified Code(s): E78.2 - Mixed hyperlipidemia Code(s): E78.5 - Hyperlipidemia, unspecified Status: Acute Assessment and Plan: Continue Sosubastatin (9) Neuropathy: Code(s): G62.9 - Polyneuropathy, unspecified Status: Acute Assessment and Plan: Continue Gabapentin (10) Pancreatic cancer: Code(s): C25.9 - Malignant neoplasm of pancreas, unspecified Status: Acute Assessment and Plan: CT Chest/Abd/Pel for staging, continue Reneeon (Pt has brought medications from home) Subjective Date/time seen: 08/18/20 10:23 Shivani states she feels a bit better today. I asked her about dizziness while laying down in bed and she states once in a while she becomes dizzy while laying down. Orthostatic VS done this AM and the Pt states she was dizzy when she stood up. Sitting BP was 112/58 and standing BP was 76/52. Pt denies any other pain at this time. No SOB, abdominal issues. Review of Systems Constitutional: Constitutional: Reports no additional constitutional complaints, De
[2020-08-18 11:56] LABS: Glucose Point of Care 334 mg/dl (65-105)
[2020-08-18] MEDS: MIDODRINE HCL 2.5 MG TABLET 10 MG PO ×2 (13:12→17:16)
[2020-08-18] MEDS: SODIUM CHLORIDE 0.9% IV 1,000 ML 500 ML IV CONT (13:15)
[2020-08-18 16:40] LABS: Glucose Point of Care 297 mg/dl (65-105)
--- NOTE | 2020-08-18 18:30 | PC.NURSE ---
patient was resting comfortably in bed. Said pain level was still a 0. Did not need anything at this time.
[2020-08-18 21:05] LABS: Glucose Point of Care 371 mg/dl (65-105)
--- NOTE | 2020-08-18 23:00 | PC.NURSE ---
Drained patient's gastrostomy tube of 900 mLs of brownish green oily appearing fluid with odor of bowel.
[2020-08-18 23:17] LABS: Glucose Point of Care 264 mg/dl (65-105)
[2020-08-19] VITALS (15 sets, daily range): BP systolic 66–114; BP diastolic 42–65; PULSE 65–101; RESP 12–20; TEMP 36–36.9; O2SAT 98–99
[2020-08-19 05:31] LABS: Hemoglobin 8.5 g/dL (11.7-13.8); Mean Corpuscular HGB Conc 30.4 g/dL (32.0-36.0); Mean Corpuscular Hemoglobin 22.7 pg (27.0-31.0); Mean Corpuscular Volume 74.7 fL (78.0-102.0); Mean Platelet Volume 8.4 fl (9.2-11.8); Platelet Count Result 476 K/mm3 (150-420); Red Blood Count 3.75 M/mm3 (4.20-5.40); Red Cell Distribution Width 15.7 % (11.6-14.4)
[2020-08-19 05:41] LABS: Anion Gap 11 mmol/L (8-16); Blood Urea Nitrogen 15 mg/dL (7-18); Calcium 8.3 mg/dL (8.5-10.1); Carbon Dioxide 25 mmol/L (21-32); Chloride 95 mmol/L (98-108); Estimated CRCL calculation 65 ml/min; Estimated Glomerular Filt Rate > 60; Glucose 185 mg/dL (70-99); Magnesium 1.8 mg/dL (1.8-2.4); Osmolality Calculated 277 mOsm/kg (285-295); Potassium 4.2 mmol/L (3.5-5.1); Sodium 131 mmol/L (136-145)
[2020-08-19] MEDS: polyethylene glycoL 3350 17 GM POWD.PACK PO (08:45)
[2020-08-19] MEDS: MIDODRINE HCL 2.5 MG TABLET 10 MG PO ×3 (08:47→17:34)
[2020-08-19] MEDS: SENNA/DOCUSATE SODIUM TABLET 1 TAB PO ×2 (08:47→17:34)
[2020-08-19] MEDS: CALCIUM CARBONATE (OSCAL) 500 MG TABLET PO ×2 (08:47→17:34)
[2020-08-19] MEDS: ASPIRIN 81 MG ENTERIC TABLET PO (08:47)
[2020-08-19] MEDS: MULTIVITAMINS THERAPEUTIC TAB (*BKC) 1 TABLET PO (08:48)
[2020-08-19] MEDS: APIXABAN 2.5 MG TABLET 5 MG PO ×2 (08:48→17:34)
[2020-08-19] MEDS: CHOLECALCIFEROL 400 UNITS TABLET (VIT D) 800 UNITS PO (08:48)
[2020-08-19] MEDS: CYANOCOBALAMIN 1,000 MCG TABLET 500 MCG PO (08:48)
[2020-08-19] MEDS: GABAPENTIN 300 MG CAPSULE PO ×3 (08:48→17:35)
[2020-08-19] MEDS: ROSUVASTATIN 10 MG TABLET 20 MG PO (08:48)
[2020-08-19] MEDS: AMIODARONE HCL 200 MG TABLET PO (08:49)
--- NOTE | 2020-08-19 11:03 | PC.NURSE ---
Hospitalist speaking with Dr Oliver in [place] for possible transfer
[2020-08-19 11:32] LABS: Glucose Point of Care 362 mg/dl (65-105)
--- NOTE | 2020-08-19 11:49 | PC.NURSE ---
[facility] access line contacted for possible transfer
--- NOTE | 2020-08-19 13:40 | PC.NURSE ---
[facility] has no beds, call made to [facility]
--- NOTE | 2020-08-19 14:20 | PM.IMPN ---
Progress Note: A&P Assessment and Plan (1) Syncopal episodes: Code(s): R55 - Syncope and collapse Status: Acute Assessment and Plan: Pt states she has been having such episodes more often lately, Orthostatic BP L 103/59 HR 76, Sit 94/58 HR 81, Standing 70/40 HR 100, Started Midodrine 5 mg TID, VS Q4H, 1 L NS bolus in ER, NS @ 100ml/h, up with assistance, BSC, Orthostatic VS Q Shift 08/18/2020 Sitting BP 112/58, standing BP 76/52, increased Midodrine to 10 mg TID, IVF stopped at this time, taking PO fluids well 08/19/2020 Supine 104/61 HR 80, Sitting 91/65 HR 89, Standing 66/42 HR 101, Pt was given a 1L bolus yesterday of NS (2) Acute hyponatremia: Code(s): E87.1 - Hypo-osmolality and hyponatremia Status: Acute Assessment and Plan: Na/Cl 126/88, continue NS at 100ml/h, monitoring BMP 08/18/2020 Na/Cl 129/94, will consider starting Sodium tabs, will give 1 L NS bolus over 2 hours for electrolytes and orthostatic hypotension, continue to monitor, Obtaining records from [facility] for comparison of previous labs 08/19/2020 Na/Cl 131/95 resolving, has good appetite finishing most of her meals, Pt has had a gastric bypass in the past though PO intake has been 580, 1910, and 2230 with G-tube output 600, 2700, 1075 respectively and mostly Bile (3) Acute hypokalemia: Code(s): E87.6 - Hypokalemia Status: Acute Assessment and Plan: K 2.9 and was given 20 mEq in ER, 40 PO this AM, and 20 IV this AM, after rounding an additional 40 mEq X 2 PO 3 hours apart, monitor BMP, Mag 2.2 yesterday, EKG NSR with QTc of 546, continue Eliquis 08/18/2020 K 4.5 this AM, Mag 1.9, continue to monitor, supplement at needed 08/19/2020 K 4.2 this AM, mag 1.8 (4) Paroxysmal atrial fibrillation: Code(s): I48.0 - Paroxysmal atrial fibrillation Status: Acute Assessment and Plan: Continue Amiodarone, Cardiac Monitoring, correct electrolytes 08/18/2020 Continue Amiodarone, Cardiac Monitoring, K corrected, NaCl is correcting, continue Eliquis, rate is controlled 08/19/2020 Rate controlled 70s (5) Type 2 diabetes mellitus: Qualifiers: Diabetes mellitus shelter insulin use: with terminal press operator use Diabetes mellitus complication status: with neurologic complications Diabetes mellitus complication detail: with unspecified neuropathy Qualified Code(s): E11.40 - Type 2 diabetes mellitus with diabetic neuropathy, unspecified; Z79.4 - residential (current) use of insulin Code(s): E11.9 - Type 2 diabetes mellitus without complications Status: Acute Assessment and Plan: Diabetic Diet, ACHS glucose monitoring, SSI, hypoglycemic protocol 08/18/2020 Glucose around 250 today, continue monitoring, continue as noted above 08/19/2020 Glucose 190-320, no changes at this time (6) Anemia: Code(s): D64.9 - Anemia, unspecified Status: Acute Assessment and Plan: H/H 9.1/28.9, monitor, transfuse if < 7 Hgb, no bleeding observed 08/18/2020 H/H 8.5/27.6, will check stool for blood, possible diluted from IVFs which have been stopped at this time 08/19/2020 H/H 8.07/09, stool for blood has not been collected (7) Bronchitis: Code(s): J40 - Bronchitis, not specified as acute or chronic Status: Acute Assessment and Plan: Continue Albuterol MDI, supplemental Oxygen as needed, stable condition (8) Hyperlipidemia: Qualifiers: Hyperlipidemia type: mixed hyperlipidemia Qualified Code(s): E78.2 - Mixed hyperlipidemia Code(s): E78.5 - Hyperlipidemia, unspecified Status: Acute Assessment and Plan: Continue Sosubastatin (9) Neuropathy: Code(s): G62.9 - Polyneuropathy, unspecified Status: Acute Assessment and Plan: Continue Gabapentin (10) Pancreatic cancer: Code(s): C25.9 - Malignant neoplasm of pancreas, unspecified Status: Acute Assessment and Plan: CT Chest/Abd/Pel for staging, continue Creon (Pt has brought medications from h
--- NOTE | 2020-08-19 14:35 | PC.NURSE ---
[facility] has accepted patient in transfer Dr Schultz, no beds at this time
[2020-08-19 16:49] LABS: Glucose Point of Care 165 mg/dl (65-105)
--- NOTE | 2020-08-19 17:00 | PC.NURSE ---
Patient was resting in bed, visitor was just leaving. Drained the gastrostomy tube of 600 mLs of green fluid with the odor of bile.
[2020-08-19 21:37] LABS: Glucose Point of Care 324 mg/dl (65-105)
--- NOTE | 2020-08-19 21:39 | PC.NURSE ---
notified of patient's HS blood sugar being 324. New order received to give Humalog 8 units x1.
--- NOTE | 2020-08-19 22:26 | PC.NURSE ---
This nurse spoke with Sue at the [facility] access line. Sue stated that no bed is available at this time and there is an average 2 to 3 day wait for a bed.
[2020-08-20] VITALS (12 sets, daily range): BP systolic 64–116; BP diastolic 55–66; PULSE 68–97; RESP 14–16; TEMP 36.1–36.8; O2SAT 71–99
[2020-08-20 05:38] LABS: Hematocrit 27.8 % (35.0-42.0); Hemoglobin 8.6 g/dL (11.7-13.8); Mean Corpuscular HGB Conc 30.9 g/dL (32.0-36.0); Mean Corpuscular Hemoglobin 22.8 pg (27.0-31.0); Mean Corpuscular Volume 73.7 fL (78.0-102.0); Mean Platelet Volume 8.2 fl (9.2-11.8); Platelet Count Result 469 K/mm3 (150-420); Red Blood Count 3.77 M/mm3 (4.20-5.40); Red Cell Distribution Width 15.9 % (11.6-14.4); White Blood Count 11.8 K/mm3 (4.8-10.8)
[2020-08-20 05:48] LABS: Anion Gap 11 mmol/L (8-16); Blood Urea Nitrogen 18 mg/dL (7-18); Calcium 8.6 mg/dL (8.5-10.1); Carbon Dioxide 24 mmol/L (21-32); Chloride 95 mmol/L (98-108); Estimated CRCL calculation 62 ml/min; Estimated Glomerular Filt Rate > 60; Glucose 166 mg/dL (70-99); Osmolality Calculated 275 mOsm/kg (285-295); Potassium 3.9 mmol/L (3.5-5.1); Sodium 130 mmol/L (136-145)
--- NOTE | 2020-08-20 06:30 | PC.NURSE ---
changed bandage at patients drainage site. Bandage was saturated. 1250 emptied from drain.
[2020-08-20 07:42] LABS: Glucose Point of Care 188 mg/dl (65-105)
--- NOTE | 2020-08-20 08:19 | PC.NURSE ---
Sharmila from [facility] transfer line called to obtain updated vital signs. States no bed available at this time. Will keep in contact about pt. placement.
[2020-08-20] MEDS: SENNA/DOCUSATE SODIUM TABLET 1 TAB PO ×2 (09:05→17:19)
[2020-08-20] MEDS: MIDODRINE HCL 2.5 MG TABLET 10 MG PO ×3 (09:05→17:22)
[2020-08-20] MEDS: MULTIVITAMINS THERAPEUTIC TAB (*BKC) 1 TABLET PO (09:05)
[2020-08-20] MEDS: CALCIUM CARBONATE (OSCAL) 500 MG TABLET PO ×2 (09:06→17:23)
[2020-08-20] MEDS: ROSUVASTATIN 10 MG TABLET 20 MG PO (09:06)
[2020-08-20] MEDS: AMIODARONE HCL 200 MG TABLET PO (09:06)
[2020-08-20] MEDS: GABAPENTIN 300 MG CAPSULE PO ×3 (09:07→17:19)
[2020-08-20] MEDS: ASPIRIN 81 MG ENTERIC TABLET PO (09:07)
[2020-08-20] MEDS: APIXABAN 2.5 MG TABLET 5 MG PO (09:07)
[2020-08-20] MEDS: CHOLECALCIFEROL 400 UNITS TABLET (VIT D) 800 UNITS PO (09:08)
[2020-08-20] MEDS: CYANOCOBALAMIN 1,000 MCG TABLET 500 MCG PO (09:08)
[2020-08-20] MEDS: polyethylene glycoL 3350 17 GM POWD.PACK PO (09:10)
[2020-08-20] MEDS: SODIUM CHLORIDE 0.9% IV 1,000 ML 125 ML IV CONT ×2 (09:25→17:32)
[2020-08-20 09:41] LABS: Occult Blood Positive (Negative)
[2020-08-20 11:50] LABS: Glucose Point of Care 346 mg/dl (65-105)
--- NOTE | 2020-08-20 12:32 | PM.IMPN ---
Progress Note: A&P Assessment and Plan (1) Syncopal episodes: Code(s): R55 - Syncope and collapse Status: Acute Assessment and Plan: Pt states she has been having such episodes more often lately, Orthostatic BP L 103/59 HR 76, Sit 94/58 HR 81, Standing 70/40 HR 100, Started Midodrine 5 mg TID, VS Q4H, 1 L NS bolus in ER, NS @ 100ml/h, up with assistance, BSC, Orthostatic VS Q Shift 08/18/2020 Sitting BP 112/58, standing BP 76/52, increased Midodrine to 10 mg TID, IVF stopped at this time, taking PO fluids well 08/19/2020 Supine 104/61 HR 80, Sitting 91/65 HR 89, Standing 66/42 HR 101, Pt was given a 1L bolus yesterday of NS 08/20/2020 Supine 114/63 HR 69, Sitting 93/60 HR 69, Standing 80/52 HR not reported, IVF restarted at 125ml/h NS (2) Acute hyponatremia: Code(s): E87.1 - Hypo-osmolality and hyponatremia Status: Acute Assessment and Plan: Na/Cl 126/88, continue NS at 100ml/h, monitoring BMP 08/18/2020 Na/Cl 129/94, will consider starting Sodium tabs, will give 1 L NS bolus over 2 hours for electrolytes and orthostatic hypotension, continue to monitor, Obtaining records from [facility] for comparison of previous labs 08/19/2020 Na/Cl 131/95 resolving, has good appetite finishing most of her meals, Pt has had a gastric bypass in the past though PO intake has been 580, 1910, and 2230 with G-tube output 600, 2700, 1075 respectively and mostly Bile 08/20/2020 IVF restarted NS @ 125ml/h NaCl 130, 95 (3) Acute hypokalemia: Code(s): E87.6 - Hypokalemia Status: Acute Assessment and Plan: K 2.9 and was given 20 mEq in ER, 40 PO this AM, and 20 IV this AM, after rounding an additional 40 mEq X 2 PO 3 hours apart, monitor BMP, Mag 2.2 yesterday, EKG NSR with QTc of 546, continue Eliquis 08/18/2020 K 4.5 this AM, Mag 1.9, continue to monitor, supplement at needed 08/19/2020 K 4.2 this AM, mag 1.8 08/20/2020 K 3.9 adding 20 mEq potassium to MAR (4) Paroxysmal atrial fibrillation: Code(s): I48.0 - Paroxysmal atrial fibrillation Status: Acute Assessment and Plan: Continue Amiodarone, Cardiac Monitoring, correct electrolytes 08/18/2020 Continue Amiodarone, Cardiac Monitoring, K corrected, NaCl is correcting, continue Eliquis, rate is controlled 08/19/2020 Rate controlled 70s 08/20/2020 ... (5) Type 2 diabetes mellitus: Qualifiers: Diabetes mellitus residential insulin use: with residential use Diabetes mellitus complication status: with neurologic complications Diabetes mellitus complication detail: with unspecified neuropathy Qualified Code(s): E11.40 - Type 2 diabetes mellitus with diabetic neuropathy, unspecified; Z79.4 - assisted (current) use of insulin Code(s): E11.9 - Type 2 diabetes mellitus without complications Status: Acute Assessment and Plan: Diabetic Diet, ACHS glucose monitoring, SSI, hypoglycemic protocol 08/18/2020 Glucose around 250 today, continue monitoring, continue as noted above 08/19/2020 Glucose 190-320, no changes at this time 08/20/2020 No changes to meds at this time (6) Anemia: Code(s): D64.9 - Anemia, unspecified Status: Acute Assessment and Plan: H/H 9.1/28.9, monitor, transfuse if < 7 Hgb, no bleeding observed 08/18/2020 H/H 8.27.6, will check stool for blood, possible diluted from IVFs which have been stopped at this time 08/19/2020 H/H 8.07/09, stool for blood has not been collected 08/20/2020 8.08/08.8, positive blood in stool, no external hemorrhoids, stool pale (7) Bronchitis: Code(s): J40 - Bronchitis, not specified as acute or chronic Status: Acute Assessment and Plan: Continue Albuterol MDI, supplemental Oxygen as needed, stable condition (8) Hyperlipidemia: Qualifiers: Hyperlipidemia type: mixed hyperlipidemia Qualified Code(s): E78.2 - Mixed hyperlipidemia Code(s): E78.5 - Hyperlipidemia, unspecified Status: Acute Assessment and Plan: Continue Sosubastatin (9) Neuropathy:
[2020-08-20 16:47] LABS: Glucose Point of Care 210 mg/dl (65-105)
--- NOTE | 2020-08-20 17:00 | PC.NURSE ---
Gastrostomy tube drained of 900 mL of dark green, oily fluid with mild odor.
--- NOTE | 2020-08-20 18:30 | PC.NURSE ---
Patient was resting comfortably in bed. Reported no pain at this time, and did not need to use the toilet. Refilled patient's water and cleaned off table.
[2020-08-20 21:04] LABS: Glucose Point of Care 220 mg/dl (65-105)
[2020-08-21] VITALS (10 sets, daily range): BP systolic 78–110; BP diastolic 53–64; PULSE 65–98; RESP 18–20; TEMP 36.1–37.1; O2SAT 98–100
[2020-08-21] MEDS: SODIUM CHLORIDE 0.9% IV 1,000 ML 125 ML IV CONT (01:38)
[2020-08-21 07:39] LABS: Glucose Point of Care 203 mg/dl (65-105)
[2020-08-21] MEDS: SENNA/DOCUSATE SODIUM TABLET 1 TAB PO (08:45)
[2020-08-21] MEDS: CALCIUM CARBONATE (OSCAL) 500 MG TABLET PO (08:45)
[2020-08-21] MEDS: ASPIRIN 81 MG ENTERIC TABLET PO (08:45)
[2020-08-21] MEDS: AMIODARONE HCL 200 MG TABLET PO (08:45)
[2020-08-21] MEDS: MIDODRINE HCL 2.5 MG TABLET 10 MG PO ×2 (08:45→12:23)
[2020-08-21] MEDS: CYANOCOBALAMIN 1,000 MCG TABLET 500 MCG PO (08:46)
[2020-08-21] MEDS: GABAPENTIN 300 MG CAPSULE PO ×2 (08:46→12:23)
[2020-08-21] MEDS: CHOLECALCIFEROL 400 UNITS TABLET (VIT D) 800 UNITS PO (08:46)
[2020-08-21] MEDS: MULTIVITAMINS THERAPEUTIC TAB (*BKC) 1 TABLET PO (08:46)
[2020-08-21] MEDS: ROSUVASTATIN 10 MG TABLET 20 MG PO (08:46)
--- NOTE | 2020-08-21 09:09 | PC.NURSE ---
Kamila called with room assignment, to go to [phone], updated vitals given to bed placement, number for report recieved
--- NOTE | 2020-08-21 09:11 | PM.DS ---
DS: Admitting Diagnosis Admitting Diagnosis Admitting Diagnosis: Syncope, Hyponatremia, Hypokalemia, Anemia, A-fib DS: Discharge Diagnosis Discharge Diagnosis (1) Syncopal episodes: Code(s): R55 - Syncope and collapse Status: Acute Assessment and Plan: Pt states she has been having such episodes more often lately, Orthostatic BP L 103/59 HR 76, Sit 94/58 HR 81, Standing 70/40 HR 100, Started Midodrine 5 mg TID, VS Q4H, 1 L NS bolus in ER, NS @ 100ml/h, up with assistance, BSC, Orthostatic VS Q Shift 08/18/2020 Sitting BP 112/58, standing BP 76/52, increased Midodrine to 10 mg TID, IVF stopped at this time, taking PO fluids well 08/19/2020 Supine 104/61 HR 80, Sitting 91/65 HR 89, Standing 66/42 HR 101, Pt was given a 1L bolus yesterday of NS 08/20/2020 Supine 114/63 HR 69, Sitting 93/60 HR 69, Standing 80/52 HR not reported, IVF restarted at 125ml/h NS 08/21/2020 No change with orthostatic VS, Talking with the Pt she states she was a little dizzy prior to starting the Amiodarone about 1 month ago but she started having the fainting spells more often after being on the Amiodarone. Total PO fluid intake during stay 9210 and total G-tube output 8740 (2) Acute hyponatremia: Code(s): E87.1 - Hypo-osmolality and hyponatremia Status: Acute Assessment and Plan: Na/Cl 126/88, continue NS at 100ml/h, monitoring BMP 08/18/2020 Na/Cl 129/94, will consider starting Sodium tabs, will give 1 L NS bolus over 2 hours for electrolytes and orthostatic hypotension, continue to monitor, Obtaining records from [facility] for comparison of previous labs 08/19/2020 Na/Cl 131/95 resolving, has good appetite finishing most of her meals, Pt has had a gastric bypass in the past though PO intake has been 580, 1910, and 2230 with G-tube output 600, 2700, 1075 respectively and mostly Bile 08/20/2020 IVF restarted NS @ 125ml/h NaCl 130, 95 08/21/2020 IVF continue but will be held for transfer to [facility] (3) Acute hypokalemia: Code(s): E87.6 - Hypokalemia Status: Acute Assessment and Plan: K 2.9 and was given 20 mEq in ER, 40 PO this AM, and 20 IV this AM, after rounding an additional 40 mEq X 2 PO 3 hours apart, monitor BMP, Mag 2.2 yesterday, EKG NSR with QTc of 546, continue Eliquis 08/18/2020 K 4.5 this AM, Mag 1.9, continue to monitor, supplement at needed 08/19/2020 K 4.2 this AM, mag 1.8 08/20/2020 K 3.9 adding 20 mEq potassium to 08/21/2020 Lab holiday this AM (4) Paroxysmal atrial fibrillation: Code(s): I48.0 - Paroxysmal atrial fibrillation Status: Acute Assessment and Plan: Continue Amiodarone, Cardiac Monitoring, correct electrolytes 08/18/2020 Continue Amiodarone, Cardiac Monitoring, K corrected, NaCl is correcting, continue Eliquis, rate is controlled 08/19/2020 Rate controlled 70s 08/20/2020 ... (5) Type 2 diabetes mellitus: Qualifiers: Diabetes mellitus complication detail: with unspecified neuropathy Diabetes mellitus complication status: with neurologic complications Diabetes mellitus rn long term care insulin use: with custodial use Qualified Code(s): E11.40 - Type 2 diabetes mellitus with diabetic neuropathy, unspecified; Z79.4 - terminal press operator (current) use of insulin Code(s): E11.9 - Type 2 diabetes mellitus without complications Status: Acute Assessment and Plan: Diabetic Diet, ACHS glucose monitoring, SSI, hypoglycemic protocol 08/18/2020 Glucose around 250 today, continue monitoring, continue as noted above 08/19/2020 Glucose 190-320, no changes at this time 08/20/2020 No changes to meds at this time 08/21/2020 ... (6) Anemia: Code(s): D64.9 - Anemia, unspecified Status: Acute Assessment and Plan: H/H 9.1/28.9, monitor, transfuse if < 7 Hgb, no bleeding observed 08/18/2020 H/H 8.5/27.6, will check stool for blood, possible diluted from IVFs which have been stopped at this time 08/19/2020 H/H 8.07/09, stool for blood has not been collected 08/20/2020.8, positive blood in stoo
--- NOTE | 2020-08-21 09:37 | PC.NURSE ---
[facility] ambulance service contacted and no truck available for transfer, [facility] service contacted for transfer truck
--- NOTE | 2020-08-21 09:55 | PC.NURSE ---
Delay in transfer due to rigs with multiple calls, will transport when able
--- NOTE | 2020-08-21 10:00 | PC.NURSE ---
Addendum entered by Kay Dumas RN 08/21/20 12:55: Report called to [phone]. Original Note: Report called at 1000 to Mahsa at [facility]. Patient transferring to room 7912-A.
[2020-08-21 12:21] LABS: Glucose Point of Care 223 mg/dl (65-105)
--- NOTE | 2020-08-21 12:40 | PC.NURSE ---
EMS here to transport patient to [place]. Patient stood and pivot transferred to [facility]. All belongings and medication gathered and sent with patient. Report and discharge packet provided to EMS. Patient denies any questions or concerns at discharge. Left floor via stretcher accompanied by EMS. IV site to right AC left intact due to patient being transferred to hospital.
== END 2020-08-21 12:40 | disposition short-term general hospital (02) | DRG 312 ==
LOC: CHSED 14:34 → CHS2ND 16:16
PROVIDERS: Nurse Practitioner Family; Admitting Provider Emergency Medicine; Emergency Provider Emergency Medicine; PCP Internal Medicine; Visit Provider Emergency Medicine
DX: R55 Syncope and collapse (principal); E87.1 Hypo-osmolality and hyponatremia; C25.9 Malignant neoplasm of pancreas, unspecified; C78.7 Secondary malignant neoplasm of liver and intrahepatic bile duct; I95.1 Orthostatic hypotension; E87.6 Hypokalemia; I48.0 Paroxysmal atrial fibrillation; D64.9 Anemia, unspecified; E78.5 Hyperlipidemia, unspecified; E11.40 Type 2 diabetes mellitus with diabetic neuropathy, unspecified; J40 Bronchitis, not specified as acute or chronic; M54.31 Sciatica, right side; Z98.84 Bariatric surgery status; Z95.5 Presence of coronary angioplasty implant and graft; Z93.1 Gastrostomy status; Z79.4 Long term (current) use of insulin; Z79.01 Long term (current) use of anticoagulants
CPT/HCPCS: 36415; 70450; 71045; 71260; 74177; 80048; 80053; 82272; 82948; 83605; 83735; 83880; 84484; 85025; 85027; 85055; 85610; 85730; 87040; 93005; 96361; 96365; 96366; 99285; A9270; G0378; J1815; J3480; J7030; Q9967

== ENCOUNTER 2020-10-05 13:25 | Emergency (ER) | payer MEDICARE, SELFPAY ==
--- NOTE | ~2020-10-05 | XR_ITS ---
EXAMINATION: XR chest 1V portable EXAM DATE: 10/05/2020 13:47 INDICATION: CP, tachycardia . TECHNIQUE: Portable AP frontal chest x-ray was obtained. Comparison is made to prior examination from 08/16/2020. FINDINGS: There is a right-sided portacatheter with intact line. Borderline cardiac enlargement. Left -sided coronary artery stents. No confluent consolidation, pneumothorax or pleural effusion suspected . Mild to moderate lumbar levoscoliosis. IMPRESSION: 1. Borderline cardiomegaly Reviewed, dictated and finalized at location A. IMPRESSION: 1. Borderline cardiomegaly
[2020-10-05 13:30] VITALS: BP 104/66; PULSE 128; RESP 20; TEMP 36.9; O2SAT 100
--- NOTE | 2020-10-05 13:32 | ECG_ITS ---
Measurements Intervals [place] Rate: 123 P: MS: 0 QRS: -44 QRSD: 125 T: 128 QT: 340 QTc: 488 Interpretive Statements ATRIAL FLUTTER/TACHYCARDIA WITH RAPID VENTRICULAR RESPONSE LEFT AXIS DEVIATION INTRAVENTRICULAR CONDUCTION DELAY DELAYED PRECORDIAL R/S TRANSITION ST-T WAVE ABNORMALITY IN HIGH LATERAL LEADS- CONSIDER ISCHEMIA BASELINE WANDER- I, AVR, AVL ABNORMAL ECG Electronically Signed On 10-05-2020 17:26:40 CDT by Tyler Blanco D.O.
--- NOTE | 2020-10-05 13:36 | ED.CHESTPAIN ---
HPI - Chest Pain General Chief Complaint: Chest Pain Stated Complaint: AFIB CHEST PAIN Time Seen by Provider: 10/05/20 13:36 Source: patient Mode of arrival: ambulatory Limitations: no limitations History of Present Illness HPI narrative: 70-year-old woman with a history of coronary artery disease and atrial fibrillation comes to emergency department complaining of a rapid heart rate and chest pain. Patient states that she has had intermittent chest pain for a couple of days but at 5:00 p.m. last night her chest pain became constant. She feels mildly short of breath but has had no sweating, nausea, syncope, lightheadedness and has had no recent cough or cold symptoms, fever, or vomiting. 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 She was having some low blood pressure issues. She states she is immunized for COVID and has no recent sick contacts. MD complaint: chest pain Pertinent past history: coronary artery disease and other ( AFib with RVR) Onset (ago): day(s) (3) Timing of current episode: constant ( episodic, now constant) Prior episodes: Yes Onset: during rest Pain location: left chest Pain radiation: other ( left upper abdomen) Pain scale (0-10): 7 Quality: dull Relieving factors: nothing Exacerbating factors: nothing Associated symptoms: dyspnea ( mild) Treatment prior to arrival: none Risk Factors Coronary artery disease risk factors: hyperlipidemia Related Data On Oral Contraceptives: No Home Medications Medication Instructions Recorded Confirmed aspirin [Adult Low Dose Aspirin] 81 mg PO DAILY 12/26/18 10/05/20 cholecalciferol (vitamin D3) 800 unit PO DAILY 12/26/18 10/05/20 clobetasol 1 applic TOPICAL DAILY 12/26/18 10/05/20 multivitamin 1 tablet PO DAILY 12/26/18 10/05/20 apixaban 5 mg tablet 5 mg PO BID 02/24/19 10/05/20 insulin lispro 100 unit/mL 5 unit SUBCUT .QAC PRN ml 02/24/19 10/05/20 subcutaneous pen calcium carbonate 500 mg calcium 500 mg PO BID tablet 08/28/19 10/05/20 (1,250 mg) tablet cranberry 800 mg PO DAILY 06/20/20 10/05/20 insulin glargine U-300 conc 3 unit SUB-Q QPM PRN 06/20/20 10/05/20 ondansetron 4 mg PO Q6H PRN 06/20/20 10/05/20 oxycodone 5 mg PO Q4H PRN 06/20/20 10/05/20 polyethylene glycol 3350 [Miralax] 17 g PO DAILY 06/20/20 10/05/20 rosuvastatin 20 mg PO DAILY 06/20/20 10/05/20 acetaminophen 1,000 mg PO Q6H PRN 08/16/20 10/05/20 amiodarone 200 mg PO DAILY 08/16/20 10/05/20 cyanocobalamin (vitamin B-12) 500 mcg PO DAILY 08/16/20 10/05/20 gabapentin 300 mg PO TID 08/16/20 10/05/20 senna-docusate sodium 1 cap PO BID 08/16/20 10/05/20 Creon 2 cap PO TIDWMEAL 08/17/20 10/05/20 Allergies Allergy/AdvReac Type Severity Reaction Status Date / Time lisinopril Allergy Unknown Cough Verified 10/05/20 14:05 Review of Systems Review of Systems: All systems reviewed & are unremarkable except as noted in HPI and below Constitutional: Constitutional: Denies chills and Denies fever(s) Eyes: Eyes: Denies change in vision and Denies photophobia ENT: Denies nasal congestion and Denies sore throat Cardiovascular: Cardiovascular: Denies chest pain and Denies radiating jaw, neck or arm pain Respiratory: Respiratory: Denies cough, Reports dyspnea and Denies wheezing Gastrointestinal: Gastrointestinal: Denies abdominal pain, Denies nausea and Denies vomiting Genitourinary: Genitourinary: Denies nocturia and Denies dysuria Musculoskeletal: Musculoskeletal: Denies back pain, Denies arthralgias, Denies joint swelling and Denies muscle cramps Integumentary/Breasts: Skin/Breast: Denies pruritus, Denies erythema and Denies rash Neurologic: Denies vertigo, Denies dizziness, Denies syncope, Denies focal weakness and Denies weakness Hematologic/Lymphatic: Hematologic/Lymphatic: Denies easy bleeding and Denies easy bruising Allergic/Immunologic: Allergic/Immunologic: Denies lip swelling and Denies thro
[2020-10-05] MEDS: ASPIRIN 81 MG CHEWABLE TABLET 324 MG PO (13:45)
[2020-10-05] MEDS: SODIUM CHLORIDE 0.9% IV 1,000 ML 999 ML IV CONT (13:45)
[2020-10-05 13:57] LABS: Basophils Absolute Auto 0.01 K/mm3 (0.00-0.10); Basophils Percent Auto 0.1 % (0.0-1.0); Eosinophils Absolute Auto 0.06 K/mm3 (0.02-0.50); Eosinophils Percent Auto 0.7 % (1.0-6.0); Hematocrit 29.4 % (35.0-42.0); Hemoglobin 9.1 g/dL (11.7-13.8); Immature Granulocyte Absolute 0.06 K/mm3 (0.00-0.00); Immature Granulocyte Percent A 0.7 % (0.0-0.0); Lymphocytes Absolute Auto 0.99 K/mm3 (1.10-4.50); Mean Corpuscular Hemoglobin 23.5 pg (27.0-31.0); Mean Platelet Volume 8.6 fl (9.2-11.8); Monocytes Absolute Auto 0.04 K/mm3 (0.10-0.90); Monocytes Percent Auto 0.4 % (2.0-11.0); Neutrophils Absolute Auto 7.8 K/mm3 (1.7-7.2); Neutrophils Percent Auto 87.1 % (50.0-70.0); Platelet Count Result 356 K/mm3 (150-420); Red Blood Count 3.87 M/mm3 (4.20-5.40); Red Cell Distribution Width 21.5 % (11.6-14.4)
[2020-10-05 14:00] VITALS: BP 111/66; PULSE 70; RESP 20; O2SAT 100
[2020-10-05 14:11] LABS: Alanine Aminotransferase 26 U/L (14-59); Albumin Level 2.6 g/dL (3.4-5.0); Alkaline Phosphatase 56 U/L (46-116); Anion Gap 12 mmol/L (8-16); Aspartate Amino Transferase 21 U/L (15-37); Blood Urea Nitrogen 11 mg/dL (7-18); Calcium 8.3 mg/dL (8.5-10.1); Carbon Dioxide 25 mmol/L (21-32); Chloride 101 mmol/L (98-108); Estimated Glomerular Filt Rate > 60; Glucose 135 mg/dL (70-99); Osmolality Calculated 287 mOsm/kg (285-295); Potassium 3.4 mmol/L (3.5-5.1); Sodium 138 mmol/L (136-145); Total Protein 5.9 g/dL (6.4-8.2)
[2020-10-05 14:26] LABS: Troponin I 7.1 ng/L (0.00-60.4)
[2020-10-05 14:26] LABS: Magnesium 1.5 mg/dL (1.8-2.4)
[2020-10-05] MEDS: MAGNESIUM SULF 2 GM/WATER 50ML 2 GM/50 ML BAG IVPB (14:50)
[2020-10-05] MEDS: POTASSIUM CHLORIDE 20 MEQ TABLET 40 MEQ PO (14:50)
[2020-10-05 15:00] VITALS: BP 113/86; PULSE 72; RESP 20; O2SAT 72
[2020-10-05 16:55] LABS: Troponin I 7.1 ng/L (0.00-60.4)
[2020-10-05 18:06] VITALS: BP 115/67; PULSE 71; RESP 20; TEMP 36.2; O2SAT 100
== END 2020-10-05 18:11 | disposition home or self-care (01) ==
PROVIDERS: Emergency Provider Emergency Medicine; PCP Internal Medicine
DX: I48.20 Chronic atrial fibrillation, unspecified (principal); E87.6 Hypokalemia; E83.42 Hypomagnesemia; R07.89 Other chest pain
CPT/HCPCS: 36415; 71045; 80053; 83735; 84484; 85025; 93005; 96361; 96365; 99283; 99284; A9270; J3475; J7030

== ENCOUNTER 2020-10-12 08:46 | Outpatient (CLI) | payer MEDICARE, SELFPAY ==
[2020-10-12 09:01] VITALS: BMI 24.9
[2020-10-12 09:02] VITALS: BP 113/68; PULSE 60; RESP 16; TEMP 36.6; O2SAT 100
[2020-10-12] MEDS: IRON SUCROSE COMPLEX 300 MG in SODIUM CHLORIDE 0.9% IV 235 ML 125 MG IVPB (09:10)
--- NOTE | 2020-10-12 11:48 | PC.NURSE ---
Patient here for #1 of 3 q 2 week IV Venofer infusions. Education given on Venofer. No concerns voiced. IV Venofer infusion administrated via patent Port a cath. Tolerated well. Safe exit of hospital. Return 2020 @ 9120.
== END 2020-10-12 08:47 | disposition home or self-care (01) ==
LOC: CHSTREATRM 08:49
PROVIDERS: PCP Internal Medicine; Visit Provider Internal Medicine
DX: D50.9 Iron deficiency anemia, unspecified (principal)
CPT/HCPCS: 96365; 96366; J1756; J7050

== ENCOUNTER 2020-10-26 12:54 | Outpatient (CLI) | payer MEDICARE, SELFPAY ==
[2020-10-26] MEDS: IRON SUCROSE COMPLEX 300 MG in SODIUM CHLORIDE 0.9% IV 235 ML 125 MG IVPB (13:20)
[2020-10-26 13:24] VITALS: BMI 24.3
[2020-10-26 13:27] VITALS: BP 110/56; PULSE 79; RESP 18; TEMP 35.8; O2SAT 100
--- NOTE | 2020-10-26 15:19 | PC.NURSE ---
Patient here for #2 of 3 q 2 weeks IV Venofer. Review med with patient. No concerns voiced. IV Venofer administered. Tolerated well. Will return 2020 at 0900. Safe exit of hospital.
== END 2020-10-26 12:55 | disposition home or self-care (01) ==
LOC: CHSTREATRM 12:56
PROVIDERS: PCP Internal Medicine; Visit Provider Internal Medicine
DX: D50.9 Iron deficiency anemia, unspecified (principal)
CPT/HCPCS: 96365; 96366; J1756; J7050

== ENCOUNTER 2020-11-09 08:55 | Outpatient (CLI) | payer MEDICARE, SELFPAY ==
[2020-11-09 09:13] VITALS: BMI 26.2
[2020-11-09 09:14] VITALS: BP 129/70; PULSE 76; RESP 14; TEMP 36.6; O2SAT 97
[2020-11-09] MEDS: IRON SUCROSE COMPLEX 300 MG in SODIUM CHLORIDE 0.9% IV 250 ML 125 MG IVPB (09:20)
[2020-11-09] MEDS: HEPARIN SODIUM LOCK FLUSH 500 UNITS/5 ML SYRINGE IV PUSH (11:35)
--- NOTE | 2020-11-09 11:44 | PC.NURSE ---
Patient here for #3 of 3 IV Venofer infusion. No concerns voiced. IV Venofer administered. See MAR. Tolerated well Safe exit of hospital.
== END 2020-11-09 08:56 | disposition home or self-care (01) ==
LOC: CHSTREATRM 08:58
PROVIDERS: PCP Internal Medicine; Visit Provider Internal Medicine
DX: D50.9 Iron deficiency anemia, unspecified (principal)
CPT/HCPCS: 96365; 96366; J1756; J7050

== ENCOUNTER 2020-12-02 08:32 | Outpatient (CLI) | payer MEDICARE, SELFPAY ==
[2020-12-02 08:43] VITALS: BMI 21.8
[2020-12-02 08:49] VITALS: BP 128/64; PULSE 80; RESP 16; TEMP 36.4; O2SAT 97
[2020-12-02] MEDS: IRON SUCROSE COMPLEX IVPB (09:05)
[2020-12-02] MEDS: SODIUM CHLORIDE 0.9% IVPB (09:05)
--- NOTE | 2020-12-02 13:21 | PC.NURSE ---
Patient here for #1 of 2 IV Venofer infusions. No concerns voiced. Education on Venofer given. Venofer administered via patent port a cath. Tolerated well. Safe exit of hospital. Will return Dec 18, 2020 for #2.
== END 2020-12-02 08:33 | disposition home or self-care (01) ==
LOC: CHSTREATRM 08:35
PROVIDERS: PCP Internal Medicine; Visit Provider Internal Medicine
DX: D50.9 Iron deficiency anemia, unspecified (principal)
CPT/HCPCS: 96365; 96366; J1756; J7050

== ENCOUNTER 2020-12-16 08:52 | Outpatient (CLI) | payer MEDICARE, SELFPAY ==
[2020-12-16] MEDS: IRON SUCROSE COMPLEX 500 MG in SODIUM CHLORIDE 0.9% IV 250 ML 62.5 MG IVPB (09:23)
[2020-12-16 09:28] VITALS: BP 130/72; PULSE 80; RESP 16; TEMP 36.6; O2SAT 97
[2020-12-16 09:30] VITALS: BMI 21.8
[2020-12-16] MEDS: HEPARIN SODIUM LOCK FLUSH 500 UNITS/5 ML SYRINGE (13:13)
--- NOTE | 2020-12-16 13:14 | PC.NURSE ---
Patient here for #2 of 2 IV Venofer. No concerns voiced. IV Venofer administered. SEE MAR. Tolerated well. Safe exit of hospital.
== END 2020-12-16 08:53 | disposition home or self-care (01) ==
LOC: CHSTREATRM 08:55
PROVIDERS: PCP Internal Medicine; Visit Provider Internal Medicine
DX: D50.9 Iron deficiency anemia, unspecified (principal)
CPT/HCPCS: 96365; 96366; J1756; J7050

== ENCOUNTER 2020-12-23 10:31 | Outpatient (CLI) | payer MEDICARE, SELFPAY ==
--- NOTE | ~2020-12-23 | XR_ITS ---
EXAMINATION: XR ribs RT 2V INDICATION: Right chest pain after fall TECHNIQUE: 3 views of the right ribs were obtained. COMPARISON: 10/05/2020 FINDINGS: A right internal jugular Port-A-Cath ends with its tip in the distal superior vena cava. No displaced rib fracture is identified. The visualized portions of the right hemithorax are unremarkab le. IMPRESSION: 1. No displaced rib fracture identified. Reviewed, dictated and finalized at location B. ATE CHEF
== END 2020-12-23 10:32 | disposition home or self-care (01) ==
LOC: CHSIMG 10:33
PROVIDERS: PCP Internal Medicine; Visit Provider Internal Medicine
DX: R07.81 Pleurodynia (principal)
CPT/HCPCS: 71100

== ENCOUNTER 2021-01-09 08:46 | Emergency (ER) | payer MEDICARE, SELFPAY ==
--- NOTE | ~2021-01-09 | CT_ITS ---
EXAMINATION: CT brain wo con INDICATION: Weakness COMPARISON: 08/16/2020 TECHNIQUE: Standard unenhanced head CT. The dose-length product (DLP) was 605.33 mGy-cm. The mA was a djusted according to patient size. Iterative reconstruction technique was employed. FINDINGS: There is no intracranial hemorrhage, acute infarction, or abnormal mass lesion. The ventric les are normal. There is no abnormal mass effect or midline shift. The bass-white matter differentiat ion is normal. The basal cisterns are patent. The orbits are normal. Intracranial calcified cerebral atherosclerosis is noted. The paranasal sinuses, mastoids and calvarium are normal. IMPRESSION: 1. No acute intracranial abnormality. Reviewed, dictated and finalized at location A. INE SPECIALIST
--- NOTE | ~2021-01-09 | XR_ITS ---
EXAMINATION: XR chest 1V portable INDICATION: Chest pain TECHNIQUE: Portable AP chest at 0912 hours COMPARISON: 10/05/2020 FINDINGS: A right internal jugular Port-A-Cath ends with its tip in the distal superior vena cava. Th ere is a right perihilar opacity. No pleural effusion or pneumothorax is identified. The cardiomedias tinal silhouette is normal. IMPRESSION: 1. Right perihilar opacity which could reflect atelectasis versus pneumonia or possibly lung nodule g iven history of pancreatic cancer. Reviewed, dictated and finalized at location A. ON CUTTING MACHINE OPERATOR IMPRESSION: 1. Right perihilar opacity which could reflect atelectasis versus pneumonia or possibly lung nodule given history of pancreatic cancer.
--- NOTE | ~2021-01-09 | CT_ITS ---
EXAMINATION: CTA chest PE abdomen pel DATE: 01/09/2021 10:47 INDICATION: Chest and epigastric pain TECHNIQUE: Computed tomography angiography (CTA) of the chest was performed with 100 mL Omnipaque-350 intravenous contrast timed to evaluate the pulmonary arteries. Subsequent postcontrast images of the abdomen and pelvis are obtained. Coronal maximum intensity projection 3D-reconstructions were create d by the technologist. The dose-length product (DLP) was 565.31 mGy-cm. Automated exposure control an d iterative reconstruction technique were employed. COMPARISON: 08/17/2020 FINDINGS: CTA CHEST: The pulmonary arteries are well-opacified. No pulmonary embolism is identified. There are trace pleural effusions. There is no pneumothorax. A right internal jugular Port-A-Cath ends with its tip in the distal superior vena cava. A nodular opacity of the left lower lobe measures up to 1.[address] correlate is identified for the right perihilar opacity described on chest radiograph. No pat hologically enlarged thoracic lymph nodes are identified. The heart size is normal. There is moderate thoracic spondylosis. ABDOMEN/PELVIS CT: There are multiple new low-attenuation lesions scattered throughout the liver whic h measure up to 10 mm. There there are peripheral areas of reduced perfusion in the spleen. The pancr eatic head mass is difficult to distinctly measure but appears larger in size. There is enlargement o f the pancreatic duct with atrophy of the pancreas. Stones are present in the gallbladder which is no t distended. There appears to be a stent device in the duodenum near the head of the pancreas. There are surgical changes of the stomach. The adrenal glands are normal. The right kidney is unremarkable. There is a 4 mm nonobstructing stone of the left kidney upper pole. There is a small volume of pelvi c ascites. There is no free intraperitoneal gas or evidence of bowel obstruction. There is severe lum bar spondylosis. IMPRESSION: 1. No pulmonary embolus identified. 2. Nodular opacity of the left lower lobe measuring up to 1.7 cm likely infectious or inflammatory or possibly metastatic disease. 3. Multiple new liver masses, consistent with metastatic disease. 4. Apparent enlargement of the pancreatic head mass, consistent with malignancy. Reviewed, dictated and finalized at location A. CTOR PATIENT FINANCIAL SERVICES IMPRESSION: 1. No pulmonary embolus identified. 2. Nodular opacity of the left lower lobe measuring up to 1.7 cm likely infecti ous or inflammatory or possibly metastatic disease. 3. Multiple new liver masses, consistent with metastatic disease. 4. Apparent enlargement of the pancreatic head mass, consistent with malignancy .
[2021-01-09 08:50] VITALS: BP 147/63; PULSE 78; RESP 15; TEMP 37; O2SAT 97
--- NOTE | 2021-01-09 08:51 | ECG_ITS ---
Measurements Intervals [place] Rate: 67 P: 41 MI: 170 QRS: -41 QRSD: 137 T: 92 QT: 473 QTc: 501 Interpretive Statements SINUS RHYTHM LEFT AXIS DEVIATION INTRAVENTRICULAR CONDUCTION DELAY POOR R WAVE PROGRESSION, ANTERIOR LEADS ST-T WAVE ABNORMALITY IN HIGH LATERAL LEADS- CONSIDER ISCHEMIA BASELINE ARTIFACT- V2 ABNORMAL ECG Electronically Signed On 01-10-2021 6:58:46 SUPERVISOR CABINETMAKER by Tyler MARCANO
--- NOTE | 2021-01-09 08:59 | ED.NEUROSD ---
HPI - Neuro Symptoms/Deficit General Chief Complaint: Chest Pain Stated Complaint: ambulance Time Seen by Provider: 01/09/21 08:50 Source: patient and EMS Mode of arrival: EMS Limitations: no limitations History of Present Illness HPI Narrative: 61-year-old woman history of coronary artery disease, pancreatic cancer with metastases, atrial fibrillation and type 2 diabetes comes in today complaining of substernal chest pain that has been present for the last for 5 days. Patient also states that for the last day or 2 she has had right-sided arm and right leg weakness and feels like she is dragging her right leg. She states that she has noted that the words run together when she is looking at the television and has a mild headache. Patient states the pain is constant and worse when she takes deep breath. She denies nausea, vomiting, shortness of breath, fever, cough or diarrhea. Onset (ago): day(s) (4) Timing confirmed by: spouse Location: right arm and right leg History of same: No Severity: moderate Quality: weak Relieving factors: none Exacerbating factors: none Context: recent trauma (Fell and hit her head 3 weeks ago.) On Anticoagulants: Yes (Apixaban for atrial fibrillation.) Associated symptoms: chest pain, headaches and weakness Treatments Prior to Arrival: Aspirin Related Data Home Medications Medication Instructions Recorded Confirmed aspirin [Adult Low Dose Aspirin] 81 mg PO DAILY 12/26/18 01/09/21 clobetasol 1 applic TOPICAL DAILY PRN 12/26/18 01/09/21 apixaban 5 mg tablet 5 mg PO BID 02/24/19 01/09/21 insulin lispro 100 unit/mL 5 unit SUBCUT TID PRN ml 02/24/19 01/09/21 subcutaneous pen cranberry 800 mg PO DAILY 06/20/20 01/09/21 insulin glargine U-300 conc 3 unit SUB-Q QPM PRN 06/20/20 01/09/21 ondansetron 4 mg PO Q6H PRN 06/20/20 01/09/21 oxycodone 5 mg PO Q3-5H PRN 06/20/20 01/09/21 acetaminophen 1,000 mg PO Q6H PRN 08/16/20 01/09/21 amiodarone 200 mg PO DAILY 10/26/20 01/09/21 albuterol sulfate [ProAir HFA] 1 puff INHALATION QID PRN 01/09/21 01/09/21 prochlorperazine maleate 10 mg PO QID PRN 01/09/21 01/09/21 Allergies Allergy/AdvReac Type Severity Reaction Status Date / Time lisinopril Allergy Unknown Cough Verified 01/09/21 08:57 Review of Systems Review of Systems: All systems reviewed & are unremarkable except as noted in HPI and below Constitutional: Constitutional: Denies chills and Denies fever(s) Eyes: Eyes: Reports change in vision and Denies photophobia ENT: Denies nasal congestion and Denies sore throat Cardiovascular: Cardiovascular: Reports chest pain and Denies radiating jaw, neck or arm pain Respiratory: Respiratory: Denies cough, Denies dyspnea and Denies wheezing Gastrointestinal: Gastrointestinal: Reports abdominal pain, Denies diarrhea, Denies nausea and Denies vomiting Genitourinary: Genitourinary: Denies nocturia and Denies dysuria Musculoskeletal: Musculoskeletal: Denies back pain, Denies arthralgias and Denies joint swelling Integumentary/Breasts: Skin/Breast: Denies pruritus, Denies erythema and Denies rash Neurologic: Denies confusion, Denies vertigo, Denies dizziness, Denies syncope, Reports headache(s), Reports focal weakness and Denies numbness Hematologic/Lymphatic: Hematologic/Lymphatic: Reports easy bleeding and Reports easy bruising Allergic/Immunologic: Allergic/Immunologic: Denies lip swelling and Denies throat swelling PMFSH Past Medical History Medical History Anxiety Atrial fibrillation and flutter Coronary artery disease Gastrointestinal tube present Hyperlipidemia Pancreatic cancer Sciatica, right side Type 2 diabetes mellitus Surgical History Surgical History H/O gastric bypass H/O tubal ligation History of heart artery stent History of hernia repair History of resection of liver Family History Family History (Reviewed 12/30/20
[2021-01-09 09:06] LABS: Basophils Absolute Auto 0.03 K/mm3 (0.00-0.10); Basophils Percent Auto 0.3 % (0.0-1.0); Eosinophils Absolute Auto 0.01 K/mm3 (0.02-0.50); Eosinophils Percent Auto 0.1 % (1.0-6.0); Hematocrit 38.6 % (35.0-42.0); Hemoglobin 12.7 g/dL (11.7-13.8); Immature Granulocyte Absolute 0.07 K/mm3 (0.00-0.00); Immature Granulocyte Percent A 0.6 % (0.0-0.0); Lymphocytes Absolute Auto 0.65 K/mm3 (1.10-4.50); Lymphocytes Percent Auto 5.7 % (18.0-42.0); Mean Corpuscular HGB Conc 32.9 g/dL (32.0-36.0); Mean Corpuscular Hemoglobin 31.8 pg (27.0-31.0); Mean Corpuscular Volume 96.5 fL (78.0-102.0); Mean Platelet Volume 8.9 fl (9.2-11.8); Monocytes Absolute Auto 0.89 K/mm3 (0.10-0.90); Monocytes Percent Auto 7.7 % (2.0-11.0); Neutrophils Absolute Auto 9.8 K/mm3 (1.7-7.2); Neutrophils Percent Auto 85.6 % (50.0-70.0); Platelet Count Result 163 K/mm3 (150-420); Red Cell Distribution Width 12.4 % (11.6-14.4); White Blood Count 11.5 K/mm3 (4.8-10.8)
[2021-01-09 09:20] LABS: INR 1.2; Prothrombin Time 13.1 Seconds (9.50-12.10)
[2021-01-09 09:25] LABS: Alanine Aminotransferase 12 U/L (14-59); Albumin Level 1.9 g/dL (3.4-5.0); Alkaline Phosphatase 113 U/L (46-116); Anion Gap 8 mmol/L (8-16); Aspartate Amino Transferase 32 U/L (15-37); Bilirubin,Total 0.5 mg/dL (0.00-1.00); Blood Urea Nitrogen 9 mg/dL (7-18); Carbon Dioxide 28 mmol/L (21-32); Chloride 102 mmol/L (98-108); Estimated CRCL calculation 71 ml/min; Estimated Glomerular Filt Rate > 60; Ethanol 3 mg/dL (0-6); Glucose 128 mg/dL (70-99); Magnesium 1.8 mg/dL (1.8-2.4); Osmolality Calculated 286 mOsm/kg (285-295); Potassium 3.1 mmol/L (3.5-5.1); Sodium 138 mmol/L (136-145); Total Protein 5.5 g/dL (6.4-8.2)
[2021-01-09 09:28] LABS: SARS-CoV-2 Ag Negative (Negative)
--- NOTE | 2021-01-09 09:44 | PC.NURSE ---
attempting to void per bedpan
--- NOTE | 2021-01-09 09:51 | PC.NURSE ---
pt and spouse states she is a DNR, they do not carry a copy of the document.
[2021-01-09 11:27] VITALS: BP 141/62; PULSE 72; RESP 14; TEMP 36.8; O2SAT 99
== END 2021-01-09 11:45 | disposition short-term general hospital (02) ==
PROVIDERS: Emergency Provider Emergency Medicine; PCP Internal Medicine
DX: I21.4 Non-ST elevation (NSTEMI) myocardial infarction (principal); Z20.822 Contact with and (suspected) exposure to COVID-19; I25.10 Atherosclerotic heart disease of native coronary artery without angina pectoris; E78.5 Hyperlipidemia, unspecified; Z85.07 Personal history of malignant neoplasm of pancreas; E11.9 Type 2 diabetes mellitus without complications; Z79.899 Other long term (current) drug therapy; Z79.4 Long term (current) use of insulin
CPT/HCPCS: 36415; 70450; 71045; 71275; 74177; 80053; 80307; 83735; 84484; 85025; 85610; 85730; 87426; 93005; 99285; C9803; Q9967

== ENCOUNTER 2021-01-09 13:38 | Inpatient (IN) | payer MEDICARE, SELFPAY ==
[2021-01-09] VITALS (10 sets, daily range): BP systolic 111–135; BP diastolic 49–65; PULSE 64–123; RESP 14–16; TEMP 36.5–36.7; O2SAT 97–98; BMI 24.1
--- NOTE | ~2021-01-09 | US_ITS ---
EXAMINATION: US carotid duplex BI DATE: 01/10/2021 17:39 INDICATION: Right hemiparesis. Cerebral vascular accident. TECHNIQUE: Grayscale, color Doppler, and pulsed Doppler images of the cervical carotid arteries were obtained. The degree of vessel stenosis is placed in one of the following categories: normal, <50%, 5 0-69%, >=70% but less than near-occlusion, near-occlusion, or total occlusion. Note that percent sten osis relative to normal distal artery lumen diameter is indirectly measured from velocity measurement s as described by Guicho, et al. Radiology 2003; 229:340-346. COMPARISON: None. FINDINGS: RIGHT: The right common carotid artery (CCA) peak systolic velocity (PSV) is 117 cm/s. The right internal ca rotid artery (ICA) PSV is 91 cm/s. The right ICA end-diastolic velocity (EDV) is 10 cm/s. The right I CA/CCA PSV ratio is 0.8. Grayscale and color Doppler images yield an estimate of <50% diameter reduct ion from plaque in the ICA. There is antegrade flow in the right vertebral artery. LEFT: The left CCA PSV is 114 cm/s. The left ICA PSV is 70 cm/s. The left ICA EDV is 12 cm/s. The left ICA/ CCA PSV ratio is 0.6. Grayscale and color Doppler images yield an estimate of <50% diameter reduction from plaque in the ICA. There is antegrade flow in the left vertebral artery. IMPRESSION: 1. <50% stenosis in the right internal carotid artery. 2. <50% stenosis in the left internal carotid artery. Reviewed, dictated and finalized at location A. HAT POUNCING OPERATOR HAND
--- NOTE | ~2021-01-09 | MR_ITS ---
EXAMINATION: MR cervical spine wo con EXAM DATE: 01/11/2021 11:54 INDICATION: new onset of weakness. TECHNIQUE: Multi-sequential, multiplanar MR images of the cervical spine were obtained without contra st. Axial T1 weighted sequence. Sagittal T1, T2, T2 fat saturation images also obtained. Patient dec lined continuing with the examination, axial T2-weighted sequence and the postcontrast images were no t obtained. FINDINGS: There is mild disc disease C4-C6. There is 2 mm anterolisthesis C6 on C7. The vertebral jani dy and disc heights are otherwise well maintained. The vertebral bodies are otherwise aligned. There is no more than mild cervical canal stenosis. Normal spinal cord signal on the sagittal T2-weighted s equence. Cervicomedullary junction is normal in appearance. The T1 weighted axial sequence has significant limitations from patient motion. There is evidence of overall moderate cervical facet arthropathy. There may be mild to moderate neural foraminal stenosis at some of the mid cervical levels, no high-grade neural foraminal stenosis suspected. IMPRESSION: 1. Limited examination demonstrating moderate facet arthropathy and mild disc disease. 2. Normal cord signal. Reviewed, dictated and finalized at location A. IST WATER PURIFICATION
--- NOTE | ~2021-01-09 | MR_ITS ---
EXAMINATION: MR brain/brain stem wo/w con EXAM DATE: 01/10/2021 13:09 INDICATION: Right arm and leg weakness . History pancreatic cancer. TECHNIQUE: Magnetic resonance imaging (MRI) of the brain/brain stem obtained without contrast. Sagit amando T1, axial diffusion, gradient echo (T2*), T1, T2, FLAIR sequences obtained. Patient was then inj ected with 26 cc intravenous Multihance contrast. Axial and coronal postcontrast T1 weighted sequence s obtained. Correlation is made to head CT from 01/09/2021. FINDINGS: Scattered bilateral small acute infarctions in the cerebellum, occipital, frontal and tempo ral lobes. Consider possibility of embolic cardiac source. Mild microangiopathy and cerebral atrophy. Postcontrast images limited due to patient motion, no definite regions of abnormal enhancement. No e vidence of brain mass, intracranial metastatic disease, extra-axial collections or obstructive hydroc ephalus. No acute intracranial hemorrhage. IMPRESSION: Scattered small bilateral acute cerebral and cerebellar infarctions; consider cardiac emb olic source. Reviewed, dictated and finalized at location A. RDS TECH IMPRESSION: Scattered small bilateral acute cerebral and cerebellar infarctions ; consider cardiac embolic source.
--- NOTE | 2021-01-09 12:53 | ADMGEN ---
This patient, Shivani Carlin, was admitted to IMU Room 200-01. Patient/family oriented to hospital policies and general routines including ID bracelet, bed and alarms, visiting hours, pain management, procedures, bathroom and other care routines, personal items, smoking policy, room service/diet, and visiting hours. Information on how to activate the Rapid Response Team has been discussed. Patient/Family are encouraged to report perceived risks to care and to ask questions if they do not understand what they are told or what they should do.
--- NOTE | 2021-01-09 14:51 | ECG_ITS ---
Measurements Intervals [place] Rate: 70 P: -5 MD: 180 QRS: -39 QRSD: 132 T: 91 QT: 443 QTc: 481 Interpretive Statements SINUS OR ECTOPIC ATRIAL RHYTHM LEFT AXIS DEVIATION INTRAVENTRICULAR CONDUCTION DELAY ST-T WAVE ABNORMALITY IN HIGH LATERAL LEADS- CONSIDER ISCHEMIA BASELINE ARTIFACT- V5 ABNORMAL ECG Electronically Signed On 01-09-2021 17:38:08 BULL FIDDLE PLAYER by Tyler MARCANO
[2021-01-09 15:05] LABS: CRP 15.4 mg/dL (<1.0)
[2021-01-09 16:01] LABS: Anion Gap 0 mmol/L (8-16); Blood Urea Nitrogen 9 mg/dL (7-17); Calcium 8.2 mg/dL (8.4-10.2); Carbon Dioxide 29 mmol/L (22-30); Chloride 100 mmol/L (98-107); Estimated CRCL calculation 83 ml/min; Estimated Glomerular Filt Rate > 60; Glucose 102 mg/dL (65-110); Magnesium 1.7 mg/dL (1.6-2.3); Potassium 3.2 mmol/L (3.4-5.0); Sodium 129 mmol/L (137-145)
[2021-01-09 16:10] LABS: Hemoglobin A1C 4.3 % (<5.7)
--- NOTE | 2021-01-09 16:30 | PM.IMHP ---
H&P: HPI History of Present Illness Date/Time: 01/09/21 13:30 Chief Complaint: Chest pain. Narrative: This is a pleasant 70-year-old female with coronary artery disease status post stent, paroxysmal atrial fibrillation, diabetes, and metastatic pancreatic cancer who is being directly admitted to the IMU from the emergency department the [facility] for further evaluation of chest pain. Several days ago simply while sitting down she developed a gradual discomfort in the midsternal chest region that she describes as a heaviness or ?like somebody is sitting on there.? It has been nearly constant since the outset and she has not noticed any significant aggravating or alleviating factors. The discomfort does radiate somewhat across the chest and to the lower ribs. She denies associated symptoms and she specifically denies syncope, near syncope, diaphoresis, nausea, vomiting, and shortness of breath. She denies pleuritic pain, palpitations, racing heart, orthopnea, PND, and lower extremity edema. Additionally she has noticed weakness of her right arm and leg that has developed over the last couple of days though it seems as though the leg is more affected and in fact she feels as though she is ?dragging? her right leg when ambulating. Because of these symptoms she presented to the emergency department at the [facility] where she was found to have some STT wave abnormalities in the high lateral leads and an elevated troponin for which she is being transferred to [place] for cardiology consultation. At the time of my evaluation she rates her discomfort a 6/10 and per her report she has not been given any medication since arrival to the ER. Review of Systems Review of Systems: Twelve systems were reviewed. No fever, chills, or sweats. She denies sinus congestion. Reports mild rhinorrhea. No sore throat. No cough or shortness of breath. She denies nausea and vomiting. No diarrhea. No dysuria. She denies sick contacts. Reports having a fall approximately 3 weeks ago where she had her head and her right chest wall. There was no loss of consciousness at that time. CT of the head today showed no acute intracranial abnormalities. She denies auditory and visual changes, vertigo, facial droop, dysarthria, and dysphagia. Regarding her pancreatic cancer, she has not had any chemotherapy treatments for over 4 weeks as she is not tolerating treatments very well. She has chronic pain related to her cancer for which she takes oxycodone. Except as documented, all other systems were reviewed and are negative. FOR[facility]LY [facility] Past Medical History Medical History (Updated 01/09/21 @ 20:53 by Mary Alvarado PA-C) Anxiety Asthma Chronic anticoagulation Coronary artery disease History of stent in September 2012. Patient of Dr. Sonia Hughes. Eczema Gastroesophageal reflux disease Hyperlipidemia Hypertension Paroxysmal atrial fibrillation Primary adenocarcinoma of pancreas With metastatic disease to the liver. On palliative treatment Type 2 diabetes mellitus Surgical History Surgical History (Updated 01/09/21 @ 14:46 by Mary Alvarado PA-C) History of colonoscopy with polypectomy (09/2018) History of gastric bypass (2017) History of gastrostomy tube placement (05/2020) History of heart artery stent (09/2012) History of hernia repair History of resection of liver History of tubal ligation (1987) History of umbilical hernia repair Family History Family History Mother Family history of elevated blood lipids Acute myocardial infarction Hypertension Father Family history of cardiovascular disease Family history of emphysema Mother Family history of hypercholesterolemia Sibling Family history of cardiac disorder Family history of cardiovascular disease Acute myocardial infarction Family history of hypercholesterolemia Father Family history of cardiovascular disease
[2021-01-09] MEDS: APIXABAN 5 MG TABLET PO (17:00)
[2021-01-09] MEDS: ACETAMINOPHEN 325 MG TABLET 650 MG PO (17:03)
[2021-01-09 17:28] LABS: Procalcitonin 0.1 ng/mL
[2021-01-09] MEDS: oxyCODONE HCL (*CRX) 10 MG TAB SR 12HR PO (17:54)
[2021-01-09] MEDS: AMIODARONE HCL 200 MG TABLET PO (18:30)
[2021-01-09 20:47] LABS: Anion Gap 3 mmol/L (8-16); Blood Urea Nitrogen 10 mg/dL (7-17); Calcium 8.1 mg/dL (8.4-10.2); Carbon Dioxide 26 mmol/L (22-30); Chloride 100 mmol/L (98-107); Estimated CRCL calculation 83 ml/min; Estimated Glomerular Filt Rate > 60; Glucose 113 mg/dL (65-110); Sodium 129 mmol/L (137-145)
--- NOTE | 2021-01-09 21:21 | PC.NURSE ---
Spoke with Dr. Irvin regarding elevated troponins. Get one more troponin AM. Hold Eliquis for now. Do not start lovenox until after AM MRI. Call morning troponin if it's greater than 8.0.
[2021-01-09] MEDS: POTASSIUM CHLORIDE 20 MEQ TABLET 40 MEQ PO (21:30)
[2021-01-09 21:36] LABS: Glucose Point of Care 121 mg/dl (65-105)
[2021-01-10] VITALS (15 sets, daily range): BP systolic 118–132; BP diastolic 46–60; PULSE 63–89; RESP 16–20; TEMP 36.4–36.9; O2SAT 94–100; BMI 23.0
--- NOTE | 2021-01-10 | ECHO_ITS ---
Patient Info Name: Shivani Carlin Age: 70 years : 1950 Gender: Female Ht: 66 in Wt: 142 lbs BSA: 1.74 m2 HR: 79 bpm BP: 127 / 46 mmHg Technical Quality: Fair Exam Date: 01/10/2021 1:39 PM Exam Location: [facility] Pulmonary Patient Status: Inpatient Admit Date: 01/09/2021 Staff Ordering Physician: Tha Clemons Prep Person: Yun Vidales RDCS Attending Provider: José Sanders MD Referring Physician: Deonte VENTURA; Exam Type: CA echo doppler color flow Study Info Indications - CVA Complete two-dimensional, color flow and Doppler transthoracic echocardiogram is performed. Summary 1. Complete two-dimensional, color flow and Doppler transthoracic echocardiogram is performed. 2. Mild LVH, borderline LV enlargement,normal overall LV systolic function, ejection fraction about 55%. Diastolic dysfunction is present with elevated left heart pressures. Mild left atrial enlargement. Moderate mitral annular calcification, trivial MR. Aortic valve is not well visualized, appears sclerotic. Mild aortic stenosis by Doppler, valve area 2.2 cm2. Mild aortic regurgitation. Mild TR, mild pulmonary hypertension, RVSP 40 mmHg. Left Ventricle Left ventricular chamber dimension is mildly enlarged. Left ventricular systolic function is normal, estimated at 50-55%. There is mildly increased left ventricular wall thickness. Right Ventricle Right ventricular chamber dimension is normal. Right ventricular systolic function is normal. Left Atria Left atrial chamber dimension is mildly enlarged. Right Atria Right atrial chamber dimension is normal. Aortic Valve The aortic valve is not well visualized. There is mild aortic valve stenosis with a peak velocity of 140 cm/s, mean gradient of 4 mmHg, and aortic valve area of 2.2 cm2. There is mild aortic valve regurgitation. Pulmonic Valve The pulmonic valve is not well visualized. Mitral Valve The mitral valve has normal leaflets. There is trace mitral valve regurgitation. There is moderate mitral valve calcification. Tricuspid Valve The tricuspid valve leaflets are normal. There is mild tricuspid valve regurgitation. Mild pulmonary hypertension, estimated pulmonary arterial systolic pressure is 40 mmHg. Pericardium/Pleural The pericardium appears epicardial fat pad. There is trivial pericardial effusion. Inferior Vena Cava Normal inferior vena cava with >50% collapse upon inspiration consistent with normal right atrial pressure, 10 mmHg. Left Ventricular Outflow Tract Name Value Normal LVOT 2D LVOT Diameter 1.9 cm LVOT Doppler LVOT Peak Gradient 4 mmHg LVOT Mean Gradient 2 mmHg LVOT VTI 25 cm LVOT VTI/AV VTI Ratio 0.8 LVOT Stroke Volume 74 ml LVOT CO 4.8 l/min LVOT CI 2.8 l/min/m2 Pulmonic Valve Name Value Normal ---
[2021-01-10 04:56] LABS: Hematocrit 36.7 % (37.0-47.0); Hemoglobin 12.4 g/dL (12.0-15.0); Mean Corpuscular HGB Conc 33.8 g/dl (32-36); Mean Corpuscular Hemoglobin 32.5 pg (26-34); Mean Corpuscular Volume 96.1 fl (80-100); Mean Platelet Volume 9.7 fl (7.4-10.4); Platelet Count Result 151 k/mm3 (150-375); Red Blood Count 3.82 M/mm3 (4.2-5.4); Red Cell Distribution Width 12.2 % (11.5-14.5); White Blood Count 11.7 K/mm3 (4.5-10.0)
[2021-01-10 05:08] LABS: Anion Gap 2 mmol/L (8-16); Blood Urea Nitrogen 11 mg/dL (7-17); Calcium 8.2 mg/dL (8.4-10.2); Carbon Dioxide 27 mmol/L (22-30); Chloride 100 mmol/L (98-107); Estimated CRCL calculation 70 ml/min; Estimated Glomerular Filt Rate > 60; Glucose 84 mg/dL (65-110); Magnesium 1.7 mg/dL (1.6-2.3); Potassium 3.4 mmol/L (3.4-5.0); Sodium 129 mmol/L (137-145)
[2021-01-10] MEDS: oxyCODONE HCL (*CRX) 10 MG TAB SR 12HR PO ×2 (06:04→18:47)
--- NOTE | 2021-01-10 07:40 | P.PNIM_ITS ---
Progress Note: A&P Assessment and Plan (1) Chest pain: Code(s): R07.9 - Chest pain, unspecified Status: Acute Assessment and Plan: * Report sternal chest pain * Trops elevated 3.590, 4.300, 4.820 * Cardiology consulted thank you for your recommendations * Telemetry showed episodes of SVT or Afib RVR with a rate in the 160-180s * Echocardiogram ordered and pending * Seems that with her advanced cancer that she is not a candidate for workup at this time (2) Elevated troponin: Code(s): R77.8 - Other specified abnormalities of plasma proteins Status: Acute Assessment and Plan: * Plan is as detailed above. (3) Hypokalemia: Code(s): E87.6 - Hypokalemia Status: Acute Assessment and Plan: * K 3.4 today * replace with 40mcg PO * Potassium will be replaced and monitored. (4) Primary malignant neoplasm of pancreas with metastasis to other site: Code(s): C25.9 - Malignant neoplasm of pancreas, unspecified Status: Acute Assessment and Plan: * CT today shows new liver masses consistent with metastatic disease and possible metastatic pulmonary nodule * Last chemo treatment was 4 weeks ago * Patient sees Dr. Monge at [facility] * Will consult Dr. Diaz for further suggestions (5) Type 2 diabetes mellitus: Qualifiers: Diabetes mellitus complication detail: with unspecified neuropathy Diabetes mellitus complication status: with neurologic complications Diabetes mellitus alf insulin use: with alf use Qualified Code(s): E11.40 - Type 2 diabetes mellitus with diabetic neuropathy, unspecified; Z79.4 - termite control technician (current) use of insulin Code(s): E11.9 - Type 2 diabetes mellitus without complications Status: Acute Assessment and Plan: * Current Glucose 84 * She is on sliding scale insulin at home. * Accu-Cheks * hypoglycemic protocol * hemoglobin A1c 4.3 (6) Paroxysmal atrial fibrillation: Code(s): I48.0 - Paroxysmal atrial fibrillation Status: Acute Assessment and Plan: * Rate controlled. * Continue amiodarone * Tele monitor probably the reason for the stroke (7) Chronic anticoagulation: Code(s): Z79.01 - prison (current) use of anticoagulants Status: Acute Assessment and Plan: * Continue apixaban for stroke prophylaxis. (8) CVA (cerebral vascular accident): Code(s): I63.9 - Cerebral infarction, unspecified Status: Acute Assessment and Plan: * Complaints of right arm and leg * Brain MRI found multiple cerebral and cerebellar infarcts * Echo Ordered * Carotid Doppler ordered * Continue Eliquis and aspirin Time Spent With Patient Time with patient: 25 - 35 minutes Subjective Date/time seen: 01/10/21 07:40 Interval history: Date/Time: 01/09/21 13:30 Narrative: This is a pleasant 70-year-old female with coronary artery disease status post stent, paroxysmal atrial fibrillation, diabetes, and metastatic pancreatic cancer who is being directly admitted to the IMU from the emergency department the [facility] for further evaluation of chest pain. Several days ago simply while sitting down she developed a gradual discomfort in the midsternal chest region that she describes as a heaviness or ?like somebody is sitting on there.? It has been nearly constant since the outset and she has not noticed any significant aggravating or alleviating factors. The discomfort do
--- NOTE | 2021-01-10 07:40 | PM.IMPN ---
Progress Note: A&P Assessment and Plan (1) Chest pain: Code(s): R07.9 - Chest pain, unspecified Status: Acute Assessment and Plan: Report sternal chest pain Trops elevated 3.590, 4.300, 4.820 Cardiology consulted thank you for your recommendations Telemetry showed episodes of SVT or Afib RVR with a rate in the 160-180s Echocardiogram ordered and pending Seems that with her advanced cancer that she is not a candidate for workup at this time (2) Elevated troponin: Code(s): R77.8 - Other specified abnormalities of plasma proteins Status: Acute Assessment and Plan: Plan is as detailed above. (3) Hypokalemia: Code(s): E87.6 - Hypokalemia Status: Acute Assessment and Plan: K 3.4 today replace with 40mcg PO Potassium will be replaced and monitored. (4) Primary malignant neoplasm of pancreas with metastasis to other site: Code(s): C25.9 - Malignant neoplasm of pancreas, unspecified Status: Acute Assessment and Plan: CT today shows new liver masses consistent with metastatic disease and possible metastatic pulmonary nodule Last chemo treatment was 4 weeks ago [facility] Will consult Dr. Diaz for further suggestions (5) Type 2 diabetes mellitus: Qualifiers: Diabetes mellitus complication detail: with unspecified neuropathy Diabetes mellitus complication status: with neurologic complications Diabetes mellitus intermodal owner operator truck driver insulin use: with halfway use Qualified Code(s): E11.40 - Type 2 diabetes mellitus with diabetic neuropathy, unspecified; Z79.4 - penitentiary (current) use of insulin Code(s): E11.9 - Type 2 diabetes mellitus without complications Status: Acute Assessment and Plan: Current Glucose 84 She is on sliding scale insulin at home. Accu-Cheks hypoglycemic protocol hemoglobin A1c 4.3 (6) Paroxysmal atrial fibrillation: Code(s): I48.0 - Paroxysmal atrial fibrillation Status: Acute Assessment and Plan: Rate controlled. Continue amiodarone Tele monitor probably the reason for the stroke (7) Chronic anticoagulation: Code(s): Z79.01 - petroleum terminal plant operator (current) use of anticoagulants Status: Acute Assessment and Plan: Continue apixaban for stroke prophylaxis. (8) CVA (cerebral vascular accident): Code(s): I63.9 - Cerebral infarction, unspecified Status: Acute Assessment and Plan: Complaints of right arm and leg Brain MRI found multiple cerebral and cerebellar infarcts Echo Ordered Carotid Doppler ordered Continue Eliquis and aspirin Time Spent With Patient Time with patient: 25 - 35 minutes Subjective Date/time seen: 01/10/21 07:40 Interval history: Date/Time: 01/09/21 13:30 Narrative: This is a pleasant 70-year-old female with coronary artery disease status post stent, paroxysmal atrial fibrillation, diabetes, and metastatic pancreatic cancer who is being directly admitted to the IMU from the emergency department the [facility] for further evaluation of chest pain. Several days ago simply while sitting down she developed a gradual discomfort in the midsternal chest region that she describes as a heaviness or ?like somebody is sitting on there.? It has been nearly constant since the outset and she has not noticed any significant aggravating or alleviating factors. The discomfort does radiate somewhat across the chest and to the lower ribs. She denies associated symptoms and she specifically denies syncope, near syncope, diaphoresis, nausea, vomiting, and shortness of breath. She denies pleuritic pain, palpitations, racing heart, orthopnea, PND, and lower extremity edema. Additionally she has noticed weakness of her right arm and leg that has developed over the last couple of days though it seems as though the leg is more affected and in fact she feels as
[2021-01-10] MEDS: AMIODARONE HCL 200 MG TABLET PO (08:54)
[2021-01-10] MEDS: CITALOPRAM HYDROBROMIDE 20 MG TABLET PO (08:54)
[2021-01-10] MEDS: ASPIRIN 81 MG ENTERIC TABLET PO (08:55)
[2021-01-10 09:04] LABS: Glucose Point of Care 89 mg/dl (65-105)
--- NOTE | 2021-01-10 09:07 | PM.CNCAR ---
Assessment and Plan Additional Plan 70-year-old lady with a history of coronary disease with PCI to a diagonal branch of her LAD long time ago. She enters the hospital with a chest pain syndrome that does not appear to be related to myocardial ischemia. Her ECG does not show any acute changes. Her troponin levels are significantly elevated but flat. I would suspect this has something to do with her malignancy. Unfortunately her pancreatic malignancy is advancing significantly with multiple metastatic deposits now being seen in her liver. In this setting her prognosis is poor enough were no ischemia workup regarding her coronary disease is necessary or appropriate. Her prognosis with regarding her malignancy is poor enough where she should not undergo any workup of her coronary disease in my opinion. Mario Alberto Painter MD [facility] History of Present Illness History of Present Illness Consult date/time: 01/10/21 09:07 Consult reason: chest pain Reason For Visit: cp/ elevated troponin Narrative: This is a 70-year-old lady that I am seeing at the request of the hospitalist this morning because of chest pain and elevated troponin levels. She was transferred here and admitted yesterday from the emergency room in [place] with these complaints for further evaluation and management. The patient has a history of coronary disease and stenting of the diagonal branch of her LAD about 8 years ago according to the chart. She follows in our office with Dr. Hughes and according to the notes in the chart she has not had a significant ischemic problem since that intervention. In the past the patient was morbidly obese and underwent bariatric surgery in [place]. Following that operation she was at [facility] and had some atrial fibrillation that was treated with amiodarone. She remains on amiodarone and apixaban I believe for those reasons. Unfortunately in the last year or so she has been found to have pancreatic carcinoma which unfortunately is metastatic and advancing despite treatment at [facility]. She came to the emergency department in [place] yesterday with a 5-6 day history of pain in the upper epigastric region to low substernal region that was worse with respiratory effort and this is been going on as stated above for a number of days. Her electrocardiogram shows a sinus mechanism with left anterior superior hemiblock but no acute ST segment changes. Her troponin levels are significantly elevated but flat at over 4.0. She has received some additional analgesics this morning and appears to be much more comfortable. Unfortunately a CT scan was done of her abdomen and chest yesterday which demonstrates multiple new metastatic deposits in her liver at compared with previous examinations. There is no evidence of a pulmonary embolism. There was a note in the chart that her apixaban will be placed on hold in the palm for the possibility that we would desire to do a coronary angiogram on her at this time. She has some new neurological complaints that are noted this morning with some left-sided weakness and an MRI of her brain has been ordered for this morning as I come in to see her they are about to take her down for that exam. I do not see any other provider notes on the chart today that documented examination. Because of her malignancy she appropriately has DNR orders on her chart. Review of Systems Constitutional: Constitutional: Reports lethargy Eyes: Eyes: Reports no additional eye complaints ENT: Reports system reviewed and no additional complaints, except as documented Cardiovascular: Cardiovascular: Reports as per HPI Respiratory: Respiratory: Reports no additional respiratory complaints Gastrointestinal: Gastrointestinal: Reports as per HPI Musculoskeletal: Musculoskeletal: Reports no additional musculoskeletal complaints Neurologic: Reports as per HPI Endocrine: Endocrine: Reports no additional endocrine complaints H
[2021-01-10 13:16] LABS: Glucose Point of Care 84 mg/dl (65-105)
[2021-01-10] MEDS: CENTRAL LINE FLUSH 10 ML IV PUSH ×2 (14:45→20:17)
--- NOTE | 2021-01-10 16:35 | WPDNEURCNPN ---
Assessment and Plan Additional Plan in addition to the presence of bihemispheric his stroke and underlying history of atrial fibrillation patient does have his small muscles wasting of the hand and hyperreflexia of the lower extremities with upgoing plantar responses we need to rule out the possibility of cervical and thoracic myelopathy with her on the basis of the metastatic disease or spinal stenosis MRI of cervical spine has been requested Consult date: 01/11/21 HPI: Shivani Carlin is a 70 year old female admitted to the hospital for the complaints of chest pain in addition to the history of coronary artery disease, is status post stenting, paroxysmal atrial fibrillation, diabetes mellitus, metastatic pancreatic cancer, he was admitted to IMU from the emergency room department of the [facility] for the further evaluation of chest pain which she developed gradual discomfort in the mid sternal chest region described heaviness like somebody sitting on their constant in duration with no significant alleviating factors, additionally patient is on chronic anticoagulation therapy for the paroxysmal atrial fibrillation and does have a history of primary adenocarcinoma of pancreas with metastatic disease to the liver and on palliative treat, the MRI of the brain has documented bilateral acute cerebral and cerebellar infarction involving the occipital frontal and temporal lobe obviously embolic in nature because of the history of underlying atrial fibrillation, patient is receiving apixaban 5 mg b.i.d. with aspirin 81 mg daily and other medication as well Review of Systems Review of Systems: All systems reviewed & are unremarkable except as noted in HPI and below PMFSH Past Medical History Medical History Anxiety Asthma Chronic anticoagulation Coronary artery disease History of stent in September 2012. Patient of Dr. Sonia Hughes. Eczema Gastroesophageal reflux disease Hyperlipidemia Hypertension Paroxysmal atrial fibrillation Primary adenocarcinoma of pancreas With metastatic disease to the liver. On palliative treatment Type 2 diabetes mellitus Surgical History Surgical History History of colonoscopy with polypectomy (09/2018) History of gastric bypass (2017) History of gastrostomy tube placement (05/2020) History of heart artery stent (09/2012) History of hernia repair History of resection of liver History of tubal ligation (1987) History of umbilical hernia repair Family History Family History Mother Family history of elevated blood lipids Acute myocardial infarction Hypertension Father Family history of cardiovascular disease Family history of emphysema Mother Family history of hypercholesterolemia Sibling Family history of cardiac disorder Family history of cardiovascular disease Acute myocardial infarction Family history of hypercholesterolemia Father Family history of cardiovascular disease Acute myocardial infarction Social History Social History Social History: Surrogate decision maker: Mark Carlin, spouse. Code status: Do not resuscitate. Smoking status: Never smoker Second hand tobacco smoke exposure: Yes Alcohol intake: never Substance use: never Substance use type: does not use Additional living arrangements comments: The patient lives with her in [place]. Additional occupation/education comments: Retired. Spiritual care concerns: No Meds Home Medications and Allergies Home Medications Medication Instructions Recorded Confirmed Type aspirin [Adult Low Dose Aspirin] 81 mg PO DAILY 12/26/18 01/09/21 History clobetasol 1 applic TOPICAL DAILY PRN 12/26/18 01/09/21 History apixaban 5 mg tablet 5 mg PO BID 02/24/19 01/09/21 History insulin
[2021-01-10 17:26] LABS: Glucose Point of Care 124 mg/dl (65-105)
[2021-01-10 20:06] LABS: Glucose Point of Care 149 mg/dl (65-105)
[2021-01-11] VITALS (17 sets, daily range): BP systolic 94–128; BP diastolic 41–68; PULSE 56–130; RESP 12–20; TEMP 36.4–36.7; O2SAT 97–100
[2021-01-11] MEDS: CENTRAL LINE FLUSH 10 ML IV PUSH ×2 (04:22→16:08)
[2021-01-11] MEDS: AMIODARONE HCL 200 MG TABLET PO ×2 (04:22→16:59)
[2021-01-11] MEDS: oxyCODONE HCL (*CRX) 10 MG TAB SR 12HR PO ×2 (04:22→18:54)
[2021-01-11 04:54] LABS: Basophils Percent Auto 0.1 % (0.2-1.2); Eosinophils Absolute Auto 0.1 K/mm3 (0-0.3); Eosinophils Percent Auto 0.4 % (0-4.4); Hematocrit 38.5 % (37.0-47.0); Immature Granulocyte Absolute 0.08 K/mm3 (0.00-0.031); Immature Granulocyte Percent A 0.6 % (0-0.5); Immature Platelet Fraction Pct 3.7 % (0.9-11.2); Lymphocytes Absolute Auto 1.29 K/mm3 (0.9-3.2); Lymphocytes Percent Auto 9.6 % (18.3-44.2); Mean Corpuscular HGB Conc 33.8 g/dl (32-36); Mean Corpuscular Hemoglobin 31.9 pg (26-34); Mean Corpuscular Volume 94.4 fl (80-100); Mean Platelet Volume 9.7 fl (7.4-10.4); Monocytes Absolute Auto 1.2 K/mm3 (0.1-0.6); Monocytes Percent Auto 8.8 % (2.6-8.5); Neutrophils Absolute Auto 10.9 K/mm3 (1.3-6.7); Neutrophils Percent Auto 80.5 % (45.5-73.1); Platelet Count Result 155 k/mm3 (150-375); Red Blood Count 4.08 M/mm3 (4.2-5.4); Red Cell Distribution Width 12.5 % (11.5-14.5); White Blood Count 13.5 K/mm3 (4.5-10.0)
[2021-01-11 05:06] LABS: Alanine Aminotransferase 14 U/L (4-35); Albumin Level 2.5 g/dL (3.5-5.1); Alkaline Phosphatase 117 U/L (38-126); Anion Gap 2 mmol/L (8-16); Aspartate Amino Transferase 51 U/L (14-36); Bilirubin,Total 0.6 mg/dL (0.2-1.3); Blood Urea Nitrogen 15 mg/dL (7-17); Calcium 8.3 mg/dL (8.4-10.2); Carbon Dioxide 27 mmol/L (22-30); Chloride 99 mmol/L (98-107); Estimated CRCL calculation 61 ml/min; Estimated Glomerular Filt Rate > 60; Glucose 146 mg/dL (65-110); Magnesium 1.8 mg/dL (1.6-2.3); Potassium 3.5 mmol/L (3.4-5.0); Sodium 128 mmol/L (137-145)
[2021-01-11] MEDS: ASPIRIN 81 MG ENTERIC TABLET PO (08:24)
[2021-01-11] MEDS: CITALOPRAM HYDROBROMIDE 20 MG TABLET PO (08:24)
--- NOTE | 2021-01-11 08:46 | PM.PNCARD ---
Progress Note: A&P Assessment and Plan (1) Paroxysmal atrial fibrillation with rapid ventricular response: Code(s): I48.0 - Paroxysmal atrial fibrillation Status: Acute Assessment and Plan: History of A paroxysmal atrial fibrillation, controlled with amiodarone and Eliquis, now with rapid ventricular response. Asymptomatic. Metoprolol 5 mg IV push x1 IV amiodarone (2) Elevated troponin: Code(s): R77.8 - Other specified abnormalities of plasma proteins Status: Acute Assessment and Plan: Elevated troponins but atypical chest pain, no significant EKG changes, appears noncardiac. Echo pending No further workup recommended. (3) CVA (cerebral vascular accident): Code(s): I63.9 - Cerebral infarction, unspecified Status: Acute Assessment and Plan: New bilateral acute strokes, probably cardioembolic. Patient has been compliant with her Eliquis. Very unfortunate. Small strokes or risk of hemorrhagic conversion is low Continue aspirin and Eliquis per Dr. Kowalski's note. (4) Primary adenocarcinoma of pancreas: Code(s): C25.9 - Malignant neoplasm of pancreas, unspecified Status: Acute Assessment and Plan: Pancreatic cancer with Mets to the liver, receiving palliative care through [facility]. She is DNR status. (5) CAD (coronary artery disease): Code(s): I25.10 - Atherosclerotic heart disease of [place] coronary artery without angina pectoris Status: Acute Assessment and Plan: H/O diagonal stent 8 years ago, stable. Subjective Date/time seen: 01/11/21 08:46 Interval history: Follow-up for chest pain and elevated troponins, to 4.8. History of PAF with RVR, having recurrent AFib RVR this hospitalization. Also found to have scattered small bilateral acute cerebral and cerebellar infarctions on this admission. History of CAD and stents 8 years ago. Also has metastatic pancreatic cancer with mets to liver. DNR. 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 No palpitations. Yesterday she had weakness and numbness of her right side, and today her left upper extremity is clumsy and weak as well. She is unable to feed herself. Has constant mild lower chest pain with no aggravating or relieving factors. MRI of the brain showed scattered small acute infarcts as above. Carotid ultrasound showed less than 50% stenosis bilaterally. Echo is pending. Review of Systems Constitutional: Constitutional: Reports weakness Eyes: Eyes: Reports no additional eye complaints ENT: Denies epistaxis Cardiovascular: Cardiovascular: Denies chest pain, Denies leg edema and Denies palpitations Respiratory: Respiratory: Denies dyspnea Gastrointestinal: Gastrointestinal: Denies abdominal pain and Denies nausea Genitourinary: Genitourinary: Denies hematuria Musculoskeletal: Musculoskeletal: Reports no additional musculoskeletal complaints Integumentary/Breasts: Skin/Breast: Denies rash Neurologic: Reports numbness (Right-sided numbness, right upper extremity weakness, left) Psychiatric: Psychiatric: Reports no additional psychiatric complaints Exam Narrative: Pleasant older lady lying supine in bed, no distress Const: General: comfortable and no acute distress HENMT: Mouth: Yes moist mucous membranes Eyes: EOM: EOMs intact bilaterally Neck: Neck: supple and No no JVD Resp: Effort & Inspection: normal respiratory effort Auscultation: clear to auscultation bilaterally Cardio: Rate: tachycardic Rhythm: abnormal rhythm irregularly irregular Heart sounds: no murmurs GI: GI Palp: Yes Soft to palpation and No Tenderness to palpation present (GI) Skin: General skin exam: no rashes or lesions noted Neuro: Cognition (Neuro): normal cognition Speech: normal speech Other: Both upper extremities week Extrem: General: no edema Psy
[2021-01-11 08:52] LABS: Glucose Point of Care 143 mg/dl (65-105)
--- NOTE | 2021-01-11 09:15 | PCOTNOTE ---
Attempted to see for limited OT treatment session this A.M. Per RN, may do something in bed if can tolerate. Patient going to be started on an IV drip. Attempted to sit Patient up with head of bed elevated, so she could eat breakfast. Patient stated she started to get nausea, increased weakness. Patient having Right LE weakness, Left UE weakness and her heart rate at rest is in the high 130's to mid 140's. Due to Patients condition, unable to perform functional activity at this time. RN notified, aware and agreed.
[2021-01-11] MEDS: METOPROLOL TARTRATE INJ 5 MG/5 ML VIAL IV PUSH (09:28)
[2021-01-11] MEDS: AMIODARONE 360 MG/D5W 200 ML 360 MG/200 ML BAG 33.33 MG IV CONT (09:29)
[2021-01-11] MEDS: AMIODARONE 150 MG/D5W 100 ML 150 MG/100 ML BAG 600 MG IV CONT ×2 (09:30→09:50)
[2021-01-11] MEDS: APIXABAN 5 MG TABLET PO ×2 (09:36→16:59)
--- NOTE | 2021-01-11 10:04 | ECG_ITS ---
Measurements Intervals Patrick Rate: 70 P: 23 SC: 176 QRS: -40 QRSD: 138 T: -33 QT: 543 QTc: 586 Interpretive Statements SINUS RHYTHM LEFT AXIS DEVIATION INTRAVENTRICULAR CONDUCTION DELAY BORDERLINE ST-T WAVE ABNORMALITY- DIFFUSE LEADS BASELINE WANDER- V2-V6 BORDERLINE ECG Electronically Signed On 01-11-2021 10:42:17 ADDRESSER by Tyler Blanco D.O.
--- NOTE | 2021-01-11 11:00 | PCPTNOTE ---
Patient unable to be seen for PT at this time due to patient leaving for MRI.
--- NOTE | 2021-01-11 11:20 | PCSTNOTE ---
Please refer to the Bedside Swallow Evaluation in the EMR. Please note, silent aspiration cannot be ruled out at bedside.
--- NOTE | 2021-01-11 12:55 | PDONCCN ---
HPI - Date of Consult Date/Time: 01/11/21 12:55 Requesting Physician: José Sanders MD Primary Care Provider: Yfn Clark MD - Consult Narrative Reason for consult: Metastatic pancreatic cancer Narrative: Shivani Carlin is a 70 year old female with history of metastatic pancreatic cancer received low-dose chemotherapy by Dr. Brady about 2 months ago but was not able to tolerated. She also has history of paroxysmal atrial fibrillation, coronary artery disease status post stent placement and diabetes. She came into the hospital with chest pain and weakness in the right arm and the leg. Brain MRI showed small bilateral acute cerebral and cerebellar infarction. CT chest abdomen and pelvis showed no evidence of pulmonary embolism but multiple new liver metastasis and enlargement of the pancreatic head mass. Patient was started on Eliquis and aspirin. She has been doing poorly and gradually declining due to her progressive metastatic pancreatic cancer. Review of Systems - Review of Systems All systems reviewed & are unremarkable except as noted in HPI and bel - Neurologic Reports hearing normal, Reports numbness (Right-sided numbness, right upper extremity weakness, left), Reports sensory deficit, Reports weakness PMFSH Medical History: Medical History (Last Reviewed 01/11/21 @ 11:04 by Gumaro Kowalski MD) Anxiety Asthma Chronic anticoagulation Coronary artery disease History of stent in September 2012. Patient of Dr. Sonia Hughes. Eczema Gastroesophageal reflux disease Hyperlipidemia Hypertension Paroxysmal atrial fibrillation Primary adenocarcinoma of pancreas With metastatic disease to the liver. On palliative treatment Type 2 diabetes mellitus Surgical History: Surgical History (Last Reviewed 01/11/21 @ 11:04 by Gumaro Kowalski MD) History of colonoscopy with polypectomy Onset Date: 09/2018 History of gastric bypass Onset Date: 2017 History of gastrostomy tube placement Onset Date: 05/2020 History of heart artery stent Onset Date: 09/2012 History of hernia repair History of resection of liver History of tubal ligation Onset Date: 1987 History of umbilical hernia repair Family History: Family History (Last Reviewed 01/11/21 @ 11:04 by Gumaro Kowalski MD) Mother Family history of elevated blood lipids Acute myocardial infarction Hypertension Father Family history of cardiovascular disease Family history of emphysema Mother Family history of hypercholesterolemia Sibling Family history of cardiac disorder Family history of cardiovascular disease Acute myocardial infarction Family history of hypercholesterolemia Father Family history of cardiovascular disease Acute myocardial infarction - Social History Social History: Social History (Last Reviewed 01/11/21 @ 11:04 by Gumaro Kowalski MD) Alcohol Use: Alcohol intake: never Substance Use: Substance use: never Substance use type: does not use Others: Spiritual care concerns: No Smoking Status: Smoking status: Never smoker Second hand tobacco smoke exposure: Yes Meds Home Medications Medication Instructions Recorded Confirmed Type aspirin [Adult Low Dose Aspirin] 81 mg PO DAILY 12/26/18 01/09/21 History clobetasol 1 applic TOPICAL DAILY PRN 12/26/18 01/09/21 History apixaban 5 mg tablet 5 mg PO BID 02/24/19 01/09/21 History insulin lispro 100 unit/mL 5 unit SUBCUT TIDWM ml 02/24/19 01/09/21 History subcutaneous pen citalopram 20 mg tablet 20 mg PO DAILY #90 tablet 09/22/19 01/09/21 Rx cranberry 800 mg PO DAILY 06/20/20 01/09/21 History insulin glargine U-300 conc 3 unit SUB-Q HS PRN 06/20/20 01/09/21 History ondansetron 4 mg PO Q6H PRN 06/20/20 01/09/21 History oxycodone 5 mg PO Q4H PRN 06/20/20 01/09/21 History amiodarone 200 mg PO DAILY 10/26/20 01/09/21 History albuterol sulfate [ProAir HFA] 1 puff INHALATION QID PRN 01/09/21 01/09/21 History oxycodone myristate
[2021-01-11 14:25] LABS: Glucose Point of Care 173 mg/dl (65-105)
--- NOTE | 2021-01-11 15:21 | P.DS_ITS ---
DS: Admitting Diagnosis Discharge Date 01/11/2021 at 7:20 a.m. and 1400 p.m. <Tha Clemons DAVID - Last Filed: 01/11/21 15:32> Admitting Diagnosis NSTEMI/CVA <Tha Clemons DAVID - Last Filed: 01/11/21 15:32> DS: Discharge Diagnosis Discharge Diagnosis (1) Chest pain: Code(s): R07.9 - Chest pain, unspecified <Tha Clemons DAVID - Last Filed: 01/11/21 15:32> Status: Acute <Tha Clemons DAVID - Last Filed: 01/11/21 15:32> Assessment and Plan: * Report sternal chest pain * Trops elevated 3.590, 4.300, 4.820 * Cardiology consulted thank you for your recommendations * Telemetry showed episodes of SVT or Afib RVR with a rate in the 160-180s * Echocardiogram ordered and pending * Seems that with her advanced cancer that she is not a candidate for workup at this time <Tha Clemons DAVID - Last Filed: 01/11/21 15:32> (2) Elevated troponin: Code(s): R77.8 - Other specified abnormalities of plasma proteins <Tah ClemonsDAVID - Last Filed: 01/11/21 15:32> Status: Acute <Tha ClemonsDVAID - Last Filed: 01/11/21 15:32> Assessment and Plan: * Plan is as detailed above. <Tha ClemonsDAVID - Last Filed: 01/11/21 15:32> (3) Hypokalemia: Code(s): E87.6 - Hypokalemia <Tha ClemonsDAVID - Last Filed: 01/11/21 15:32> Status: Acute <Tha ClemonsDAVID - Last Filed: 01/11/21 15:32> Assessment and Plan: * K 3.4 today * replace with 40mcg PO * Potassium will be replaced and monitored. <Tha LuaDAVID mcdonald - Last Filed: 01/11/21 15:32> (4) Primary malignant neoplasm of pancreas with metastasis to other site: Code(s): C25.9 - Malignant neoplasm of pancreas, unspecified <Tha ClemonsDAVID - Last Filed: 01/11/21 15:32> Status: Acute <Tha ClemonsDAVID - Last Filed: 01/11/21 15:32> Assessment and Plan: * CT today shows new liver masses consistent with metastatic disease and possible metastatic pulmonary nodule * Last chemo treatment was 4 weeks ago * [facility] * Will consult Dr. Diaz for further suggestions <Tha LuaDAVID mcdonald - Last Filed: 01/11/21 15:32> (5) Type 2 diabetes mellitus: Qualifiers: Diabetes mellitus complication detail: with unspecified neuropathy Diabetes mellitus complication status: with neurologic complications Diabetes mellitus marine oil terminal superintendent insulin use: with marine oil terminal superintendent use Qualified Code(s): E11.40 - Type 2 diabetes mellitus with diabetic neuropathy, unspecified; Z79.4 - manager long term care (current) use of insulin <Tha LuaDAVID mcdonald - Last Filed: 01/11/21 15:32> Code(s): E11.9 - Type 2 diabetes mellitus without complications <Tha LuaDAVID mcdonald - Last Filed: 01/11/21 15:32> Status: Acute <Tha ClemonsDAVID - Last Filed: 01/11/21 15:32> Assessment and Plan: * Current Glucose 84 * She is on sliding scale insulin at home. * Accu-Cheks * hypoglycemic protocol * hemoglobin A1c 4.3 <Tha GravesDavid ClemonsDAVID mcdonald - Last Filed: 01/11/21 15:32> (6) Paroxysmal atrial fibrillation: Code(s): I48.0 - Paroxysmal atrial fibrillation <Tha LuaDAVID mcdonald - Last Filed: 01/11/21 15:32> Status: Acute <Tha LuaDAVID mcdonald - Last Filed: 01/11/21 15:32> Assessment and Plan: * Rate controlled. * Continue amiodarone * Tele monitor probably the reason for the stroke <Tha GravesDAVID Jones - Last Filed: 01/11/21 15:32> (7) C
--- NOTE | 2021-01-11 15:21 | PM.DS ---
DS: Admitting Diagnosis Discharge Date 01/11/2021 at 7:20 a.m. and 1400 p.m. <Tha ClemonsDAVID - Last Filed: 01/11/21 15:32> Admitting Diagnosis NSTEMI/CVA <Tha ClemonsDAVID - Last Filed: 01/11/21 15:32> DS: Discharge Diagnosis Discharge Diagnosis (1) Chest pain: Code(s): R07.9 - Chest pain, unspecified <Tha LuaDAVID mcdonald - Last Filed: 01/11/21 15:32> Status: Acute <Tha ClemonsDAVID - Last Filed: 01/11/21 15:32> Assessment and Plan: Report sternal chest pain Trops elevated 3.590, 4.300, 4.820 Cardiology consulted thank you for your recommendations Telemetry showed episodes of SVT or Afib RVR with a rate in the 160-180s Echocardiogram ordered and pending Seems that with her advanced cancer that she is not a candidate for workup at this time <Tha LuaDAVID mcdonald - Last Filed: 01/11/21 15:32> (2) Elevated troponin: Code(s): R77.8 - Other specified abnormalities of plasma proteins <Tha ClemonsDAVID - Last Filed: 01/11/21 15:32> Status: Acute <Tha ClemonsDAVID - Last Filed: 01/11/21 15:32> Assessment and Plan: Plan is as detailed above. <Tha LuaDAVID mcdonald - Last Filed: 01/11/21 15:32> (3) Hypokalemia: Code(s): E87.6 - Hypokalemia <Tha LuaDAVID mcdonald - Last Filed: 01/11/21 15:32> Status: Acute <Tha LuaDAVID mcdonald - Last Filed: 01/11/21 15:32> Assessment and Plan: K 3.4 today replace with 40mcg PO Potassium will be replaced and monitored. <Tha Hollins DAVID Clemons - Last Filed: 01/11/21 15:32> (4) Primary malignant neoplasm of pancreas with metastasis to other site: Code(s): C25.9 - Malignant neoplasm of pancreas, unspecified <Tha ClemonsDAVID - Last Filed: 01/11/21 15:32> Status: Acute <Tha ClemonsDAVID - Last Filed: 01/11/21 15:32> Assessment and Plan: CT today shows new liver masses consistent with metastatic disease and possible metastatic pulmonary nodule Last chemo treatment was 4 weeks [address] [facility] Will [facility] Dr. Diaz for further suggestions <Tha ClemonsDAVID - Last Filed: 01/11/21 15:32> (5) Type 2 diabetes mellitus: Qualifiers: Diabetes mellitus complication detail: with unspecified neuropathy Diabetes mellitus complication status: with neurologic complications Diabetes mellitus watermelon harvesting supervisor insulin use: with watermelon harvesting supervisor use Qualified Code(s): E11.40 - Type 2 diabetes mellitus with diabetic neuropathy, unspecified; Z79.4 - termite exterminator (current) use of insulin <Tha ClemonsDAVID - Last Filed: 01/11/21 15:32> Code(s): E11.9 - Type 2 diabetes mellitus without complications <Tha ClemonsDAVID - Last Filed: 01/11/21 15:32> Status: Acute <Tha ClemonsDAVID - Last Filed: 01/11/21 15:32> Assessment and Plan: Current Glucose 84 She is on sliding scale insulin at home. Accu-Cheks hypoglycemic protocol hemoglobin A1c 4.3 <Tha LuaDAVID mcdonald - Last Filed: 01/11/21 15:32> (6) Paroxysmal atrial fibrillation: Code(s): I48.0 - Paroxysmal atrial fibrillation <Tha ClemonsDAVID - Last Filed: 01/11/21 15:32> Status: Acute <Tha ClemonsDAVID - Last Filed: 01/11/21 15:32> Assessment and Plan: Rate controlled. Continue amiodarone Tele monitor probably the reason for the stroke <Tha LuaDAVID mcdonald - Last Filed: 01/11/21 15:32> (7) Chronic anticoagulation: Code(s): Z79.01 - termite exterminator (current) use of anticoagulants <DAVID Perrin - Last Filed: 01/11/21 15:32> Status: Acute <DAVID Perrin - Last Filed: 01/11/21 15:32> Assessment and Plan: Continue apixaban for stroke prophylaxis. <DAVID Perrin - Last Filed: 01/11/21 15:32> (8) CVA (cerebr
[2021-01-11] MEDS: HEPARIN SODIUM LOCK FLUSH 500 UNITS/5 ML VIAL IV PUSH (16:59)
[2021-01-11] MEDS: ACETAMINOPHEN 325 MG TABLET 650 MG PO (17:04)
[2021-01-11 17:31] LABS: Glucose Point of Care 172 mg/dl (65-105)
[2021-01-11 20:12] LABS: Glucose Point of Care 146 mg/dl (65-105)
== END 2021-01-11 21:45 | disposition hospice, home (50) | DRG 313 ==
PROVIDERS: Nurse Practitioner; Physician Assistant; Admitting Provider Family Medicine; PCP Internal Medicine; Visit Provider Internal Medicine
DX: R07.89 Other chest pain (principal); I63.10 Cerebral infarction due to embolism of unspecified precerebral artery; C25.9 Malignant neoplasm of pancreas, unspecified; C78.00 Secondary malignant neoplasm of unspecified lung; C78.7 Secondary malignant neoplasm of liver and intrahepatic bile duct; I48.20 Chronic atrial fibrillation, unspecified; I69.954 Hemiplegia and hemiparesis following unspecified cerebrovascular disease affecting left non-dominant side; I47.1 Supraventricular tachycardia; R20.0 Anesthesia of skin; E11.40 Type 2 diabetes mellitus with diabetic neuropathy, unspecified; E87.6 Hypokalemia; I10 Essential (primary) hypertension; E78.5 Hyperlipidemia, unspecified; I25.10 Atherosclerotic heart disease of native coronary artery without angina pectoris; F41.9 Anxiety disorder, unspecified; J45.909 Unspecified asthma, uncomplicated; L30.9 Dermatitis, unspecified; K21.9 Gastro-esophageal reflux disease without esophagitis; Z66 Do not resuscitate; Z95.5 Presence of coronary angioplasty implant and graft; Z79.4 Long term (current) use of insulin; Z79.01 Long term (current) use of anticoagulants; Z98.84 Bariatric surgery status; Z93.1 Gastrostomy status; Z79.82 Long term (current) use of aspirin
CPT/HCPCS: 36415; 70553; 72141; 80048; 80053; 82948; 83036; 83735; 84145; 84484; 85025; 85027; 85055; 86140; 92610; 93005; 93306; 93880; 97162; 97165; A9270; A9577; G0378; G0379; J0282; J1642